=== PATIENT | female | born 1935 | race Caucasian/White ===

== ENCOUNTER 2018-05-15 09:04 | Emergency (ER) | payer BC, OTHER ==
--- OUTSIDE RECORDS SUMMARY | 2018-05-15 09:08 | XMS REPORT | Continuity of Care Document ---
:1935 Author Organization Interface Problems Problem Status Onset Date Classification Date Comments Source Reported Medications Medication Details Route Status Patient Ordering Order Source Instructions Provider Date Allergies, Adverse Reactions, Alerts Substance Category Reaction Severity Reaction Status Date Comments Source type Reported Immunizations Immunization Date Given Site Status Last Updated Comments Source Results Order Results Value Reference Date Interpretation Comments Source Name Range Vital Signs Vital Sign Value Date Comments Source Encounters Location Location Encounter Encounter Reason Attending ADM DC Status Source Details Type Number For Provider Date Date Visit Outpatient [id number] [place] 08/[address] [facility] [place] Outpatient [id number] [place] 10/[address] [facility] [place] Procedures Procedure Code Date Perfomer Comments Source
--- OUTSIDE RECORDS SUMMARY | 2018-05-15 09:08 | XMS REPORT | Clinical Summary ---
:1935 Author Organization [facility] Address [address] [place] [id number] Care Team Providers Name Role Phone Dion Plummer MD Primary Care Provider Allergies Active Allergy Reactions Severity Noted Date Comments Calcitonin 09/04/2015 Cephalexin 09/04/2015 Logan And Derivatives 04/08/2016 "citrus fruits" Diphenhydramine 09/04/2015 Methylprednisolone 09/04/2015 "shaking" Nifedipine 09/04/2015 Other 04/08/2016 "bee stings" "xanodyne" Raloxifene 09/04/2015 Ranitidine 09/04/2015 Medications Medication Sig Dispensed Refills Start End Date Status Date hydroxychloroquine Take 1 1 Active (PLAQUENIL) 200 mg tablet by 6 tablet mouth 2 (two) times a day. NEUPRO 2 mg/24 hour APPLY 1 5 Active PATCH TO 6 SKIN Q 24 H coenzyme Q10 100 mg Take 100 mg 0 Active capsule by mouth daily. leflunomide (ARAVA) 10 Take 10 mg 0 Active MG tablet by mouth daily. ergocalciferol Take 50,000 0 Active (ERGOCALCIFEROL) 50,000 Units by unit capsule mouth every 30 (thirty) days. aspirin (ECOTRIN) 81 MG Take 81 mg 0 Active enteric coated tablet by mouth daily. ramipril (ALTACE) 10 MG TAKE 1 90 capsule 3 Active capsuleIndications: CAPSULE 8 Prescription refill DAILY IF SYSTOLIC BLOOD PRESSURE IS GREATER THAN 110 atorvastatin (LIPITOR) TAKE 1 90 tablet 3 Active 40 MG tablet TABLET DAILY 8 MYRBETRIQ 50 mg tablet TAKE 1 90 tablet 2 Active extended release 24 hr TABLET DAILY 8 furosemide (LASIX) 20 mg TAKE 1 30 tablet 0 Active tabletIndications: TABLET(20 8 Edema, unspecified type MG) BY MOUTH TWICE DAILY FOR 15 DAYS gabapentin (NEURONTIN) TAKE 1 30 capsule 0 Active 400 mg capsule CAPSULE BY 8 MOUTH EVERY NIGHT AT BEDTIME citalopram (CeleXA) 20 Take 1 30 tablet 11 11/03/19 Active MG tablet tablet (20 8 19 mg total) by mouth daily. cevimeline (EVOXAC) 30 Take 30 mg 0 Active mg capsule by mouth 3 (three) times a day. hydroCHLOROthiazide Take 1 90 tablet 3 Active (HYDRODIURIL) 25 MG tablet (25 8 tabletIndications: mg total) by Prescription refill mouth daily. carvedilol (COREG) 3.125 TAKE 1 180 tablet 3 Active MG tabletIndications: TABLET TWICE 8 Prescription refill A DAY levothyroxine TAKE 1 90 tablet 2 Active (SYNTHROID, LEVOXYL) 100 TABLET DAILY 8 mcg tablet pramipexole (MIRAPEX) TAKE 1 90 tablet 3 Active 0.25 MG TABLET DAILY 8 tabletIndications: Prescription refill traZODone (DESYREL) 100 TAKE 1 90 tablet 3 Active MG tabletIndications: TABLET 8 Prescription refill NIGHTLY NEEDED FOR SLEEP galantamine ER (RAZADYNE TAKE 1 90 capsule 2 Active ER) 24 MG 24 hr capsule CAPSULE 8 DAILY memantine (NAMENDA) 10 TAKE 1 180 tablet 1 Active MG tablet TABLET TWICE 8 A DAY clonAZEPAM (KlonoPIN) 1 TAKE 1 180 tablet 0 07/16/19 Active MG tabletIndications: TABLET BY 8 19 Prescription refill MOUTH TWICE DAILY NEEDED FOR ANXIETY amLODIPine (NORVASC) 10 TAKE 1 90 tablet 2 Active mg tablet TABLET DAILY 8 spironolactone Take 1 30 tablet 11 05/07/20 Active (ALDACTONE) 25 MG tablet tablet (25 8 19 mg total) by mouth daily. FOLIC TK 1 T PO QD 0 11/03/19 Discontinued ACID/MULTIVIT-MIN/LUTEIN 18 (CENTRUM SILVER ORAL) ascorbic acid (ascorbic Take 1,000 0 11/03/19 Discontinued acid with jaclyn hips) mg by mouth 18 1000 MG tablet daily. atorvastatin (LIPITOR) TAKE 1 90 tablet 3 06/04/19 Discontinued 40 MG tablet TABLET DAILY 7 18 citalopram (CeleXA) 10 Take 1 90 tablet 3 11/03/19 Discontinued MG tabletIndications: tablet (10 7 18 Prescription refill mg total) by mouth once daily. ramipril (ALTACE) 10 MG Take 1 90 capsule 3 05/30/19 Discontinued capsuleIndications: capsule (10 7 18 Prescription refill mg total) by mouth daily. TK 1 C PO IF SBP IS > 110 galantamine ER (RAZADYNE TAKE 1 90 capsule 2 06/22/19 Discontinued ER) 24 MG 24 hr capsule CAPSULE 7 18 DAILY amLODIPine (NORVASC) 10 TAKE 1 90 tablet 2 07/28/19 Discontinued mg tablet TABLET DAILY 7 18 MYRBETRIQ 50 mg tablet TAKE 1 90 tablet 2 07/17/19 Discontinued extended release 24 hr TABLET DAILY 7 18 pramipexole (MIRAPEX) Take 1 90 tablet 3 02/05/20 Discontinued 0.25 MG tablet (0.25 7 18 tabletIndications: mg total) by Prescription refill mouth daily. traZODone (DESYREL) 100 Take 1 90 tablet 3 03/04/20 Discontinued MG tabletIndications: tablet (100 7 18 Prescription refill mg total) by mouth nightly as needed for sleep. clonAZEPAM (KlonoPIN) 1 Take 1 180 tablet 3 08/25/19 Discontinued MG tabletIndications: tablet (1 mg 7 18 Prescription refill total) by mouth 2 (two) times a day as needed for anxiety for up to 360 days. hydroCHLOROthiazide Take 1 90 tablet 3 01/08/20 Discontinued (HYDRODIURIL) 25 MG tablet (25 7 18 tabletIndications: mg total) by Prescription refill mouth once daily. carvedilol (COREG) 3.125 Take 1 180 tablet 3 01/31/20 Discontinued MG tabletIndications: tablet 7 18 Prescription refill (3.125 mg total) by mouth 2 (two) times a day. furosemide (LASIX) 20 mg Take 1 30 tablet 0 08/10/19 Discontinued tabletIndications: tablet (20 7 18 Edema, unspecified type mg total) by mouth 2 (two) times a day for 15 days. memantine (NAMENDA) 10 TAKE 1 180 tablet 1 10/09/19 Discontinued MG tablet TABLET TWICE 7 18 A DAY levothyroxine TAKE 1 90 tablet 2 02/05/20 Discontinued (SYNTHROID, LEVOXYL) 100 TABLET DAILY 7 18 mcg tablet gabapentin (NEURONTIN) TAKE 1 30 capsule 0 06/13/19 Discontinued 400 mg capsule CAPSULE BY 7 18 MOUTH EVERY NIGHT AT BEDTIME fosfomycin (MONUROL) 3 Take 3 g by 3 g 0 06/04/19 gram packet mouth once 8 18 for 1 dose. gabapentin (NEURONTIN) TAKE 1 30 capsule 0 08/11/19 Discontinued 400 mg capsule CAPSULE BY 8 18 MOUTH EVERY NIGHT AT BEDTIME galantamine ER (RAZADYNE TAKE 1 90 capsule 2 03/27/20 Discontinued ER) 24 MG 24 hr capsule CAPSULE 8 18 DAILY amLODIPine (NORVASC) 10 TAKE 1 90 tablet 2 04/24/20 Discontinued mg tablet TABLET DAILY 8 18 clopidogrel (PLAVIX) 75 TAKE 1 90 tablet 2 11/03/19 Discontinued mg tablet TABLET DAILY 8 18 clonAZEPAM (KlonoPIN) 1 Take 1 180 tablet 1 04/17/20 Discontinued MG tabletIndications: tablet (1 mg 8 18 Prescription refill total) by mouth 2 (two) times a day as needed for anxiety for up to 360 days. memantine (NAMENDA) 10 TAKE 1 180 tablet 1 04/08/20 Discontinued MG tablet TABLET TWICE 8 18 A DAY hydroCHLOROthiazide TAKE 1 90 tablet 3 01/24/20 Discontinued (HYDRODIURIL) 25 MG TABLET DAILY 8 18 tabletIndications: Prescription refill furosemide (LASIX) 20 mg TAKE 1 30 tablet 0 02/22/20 Discontinued tabletIndications: TABLET(20 8 18 Edema, unspecified type MG) BY MOUTH TWICE DAILY FOR 15 DAYS.. 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 TIA (transient ischemic attack) 04/08/2016 Transient cerebral ischemia 04/08/2016 Dementia 04/08/2016 Aphasia 04/08/2016 Bilateral Breast lump 09/04/2015 Spasm 09/04/2015 Acute bronchitis 09/04/2015 Hypothyroidism 09/04/2015 Hyperlipidemia 09/04/2015 Hypokalemia 09/04/2015 Insomnia 09/04/2015 Restless legs 09/04/2015 Discharge of eye 09/04/2015 Essential hypertension 09/04/2015 Dizziness 09/04/2015 Fatigue 09/04/2015 Vomiting 09/04/2015 Inguinal pain 09/04/2015 Abnormal urine odor 09/04/2015 Abnormal mammography 09/04/2015 Encounters Date Type Specialty Care Team Description 05/08/2018 Patient Outreach Quality Lesli Rothman 05/08/2018 Patient Outreach Quality Aimee Chen 05/07/2018 Office Visit Neurology Pablo Frias MD TIA (transient ischemic attack) (Primary Dx) 05/07/2018 Office Visit Internal Medicine Dion Plummer, Dementia without MD behavioral disturbance, unspecified dementia type (Primary Dx) 04/29/2018 Refill Internal Medicine Dion Plummer MD 04/24/2018 Refill Internal Medicine Dion Plummer MD 04/17/2018 Refill Internal Medicine Dion Plummer, Prescription refill 04/08/2018 Refill Internal Medicine Dion Plummer MD 04/02/2018 Hospital Encounter Procedural Parth Roca, Sick sinus syndrome (HCC); Cardiology Arsh-tachy syndrome (HCC) 03/27/2018 Refill Internal Medicine Dion Plummer MD 03/20/2018 Telephone Neurology Linh Rangel 03/14/2018 Office Visit Internal Medicine Dion Plummer, Dementia without behavioral disturbance, unspecified dementia type (Primary Dx); Dysuria 03/12/2018 Telephone Neurology Linh Rangel 03/04/2018 Refill Internal Medicine Dion Plummer, Prescription refill MD 02/21/2018 Refill Internal Medicine Dion Plummer, Edema, unspecified MD type 02/21/2018 Refill Internal Medicine Dion Plummer, Edema, unspecified MD type 02/04/2018 Refill Internal Medicine Dion Plummer, Prescription refill MD 01/30/2018 Refill Internal Medicine Dion Plummer, Prescription refill 01/23/2018 Office Visit Internal Medicine Dion Plummer, Dementia without behavioral disturbance, unspecified dementia type (Primary Dx); MD Need for vaccination; Prescription refill; Screening for tuberculosis 01/07/2018 Refill Internal Medicine Dion Plummer, Prescription refill 01/02/2018 Emergency Emergency Medicine González Craft MD (Primary Dx) 11/29/2017 Hospital Encounter Procedural Parth Roca, Sick sinus syndrome; Cardiology Arsh-tachy syndrome 11/22/2017 Emergency Emergency Medicine Rick Ricks, Closed head injury , initial encounter (Primary Dx); DO Lambert, initial encounter 11/02/2017 Lab Lab Pablo Frias MD Intermittent cerebral ischemia (Primary Dx) 11/02/2017 Office Visit Neurology Pablo Frias MD Transient cerebral ischemia, unspecified type (Primary Dx) 10/16/2017 Telephone Internal Medicine Dion Plummer MD 10/08/2017 Refill Internal Medicine Dion Plummer MD 08/25/2017 Hospital Encounter Procedural Parth Roca, Sick sinus syndrome; Cardiology Arsh-tachy syndrome 08/24/2017 Orders Only Internal Medicine Roma Mena MA Prescription refill 08/11/2017 Patient Outreach Quality Adina Rosado, ANGELICA 08/10/2017 Orders Only Internal Medicine Dion Plummer Fall, sequela MD (Primary Dx) 08/10/2017 Telephone Internal Medicine Roma Mena MA 08/10/2017 Refill Internal Medicine Dion Plummer MD 08/09/2017 Refill Internal Medicine Dion Plummer, Edema, unspecified MD type 08/02/2017 Refill Internal Medicine Dion Plummer MD 07/27/2017 Refill Internal Medicine Dion Plummer MD 07/17/2017 Refill Internal Medicine Dion Plummer MD 07/11/2017 Hospital Encounter Radiology Dion Plummer, Fall, sequela; Left knee pain, unspecified chronicity 07/11/2017 Hospital Encounter Radiology Dion Plummer, Fall, sequela; Pain of left hip joint 07/11/2017 Office Visit Internal Medicine Dion Plummer, Fausto, sequela ( Primary Dx); Pain of left hip joint; Left knee pain, unspecified chronicity; Hypothyroidism, unspecified type 06/22/2017 Refill Internal Medicine Dion Plummer MD 06/20/2017 Patient Outreach Quality Lizette Hernandes RN 06/13/2017 Refill Internal Medicine Dion Plummer MD 06/04/2017 Emergency Emergency Medicine Osmar Palafox Ambulatory dysfunction (Primary Dx); MD Adan Imbalance; Acute cystitis without hematuria 06/04/2017 Refill Neurology Pablo Frias MD 05/30/2017 Refill Internal Medicine Dion Plummer, Prescription refill MD after 05/14/2017 Immunizations Name Dates Previously Given Next Due FLUZONE HIGH-DOSE PF 01/23/2018, 02/24/2017 Influenza, Unspecified 01/27/2015 PPD Test 01/23/2018 Tdap 02/17/2016 Zoster 12/17/2014 Family History Medical History Relation Name Comments Heart attack Brother Lymphoma Mother Heart disease Other fam hx Stroke Sister Relation Name Status Comments Brother Mother Other fam hx Sister Social History Tobacco Use Types Packs/Day Years Used Date Never Smoker Smokeless Tobacco: Never Used Tobacco Cessation: Counseling Given: Yes Alcohol Use Drinks/Week oz/Week Comments No Sex Assigned at Date Recorded Not on file Job Start Date Occupation Industry Not on file Not on file Not on file Travel History Travel Start Travel End No recent travel history available. Last Filed Vital Signs Vital Sign Reading Time Taken Blood Pressure 172/74 05/07/2018 2:28 PM FLOATMAN Pulse 62 05/07/2018 2:28 PM [facility]LO[facility] Temperature 35.6 C (96.1 F) 01/02/2018 9:02 PM CDT Respiratory Rate 16 01/02/2018 9:52 PM CDT Oxygen Saturation 96% 01/02/2018 9:52 PM CDT Inhaled Oxygen Concentration - - Weight 70.9 kg (156 lb 4.8 oz) 05/07/2018 2:28 PM [facility]MAN Height 152.4 cm (5') 05/07/2018 2:28 PM [facility]LOATMAN Body Mass Index 30.53 05/07/2018 2:28 PM FLOATMAN Plan of Treatment Date Type Specialty Care Team Description 11/05/2018 Office Visit Internal Medicine Dion Plummer MD [address] [place] [address] [phone] 11/05/2018 Office Visit Neurology Pablo Frias MD [address] [place], [place] [id number] Health Maintenance Due Date Last Done Comments PNEUMOCOCCAL POLYSACCHARIDE 08/22/1999 VACCINE AGE 65 AND OVER SHINGLES VACCINES (1 of 2) 05/28/2018 Postponed from 1984 (Insurance / Financial) PNEUMOCOCCAL-13 Completed 05/29/2015 INFLUENZA VACCINE Completed 01/23/2018, 01/23/2018, 02/24/2017, Additional history exists Procedures Procedure Name Priority Date/Time Associated Diagnosis Comments CV PACEMAKER DEFIB Routine 04/12/2018 3:36 Sick sinus syndrome REMOTE TECH SERVICE PM FLO[facility] (HCC) Arsh-tachy syndrome (HCC) URINALYSIS, COMPLETE, Routine 03/14/2018 11:02 Dysuria Results for this WITH REFLEX TO CULTURE AM CDT procedure are in the results section. URINE CULTURE Routine 03/14/2018 11:02 Results for this AM CDT procedure are in the results section. ZZESTIMATED GFR STAT 01/02/2018 6:12 Results for this PM CDT procedure are in the results section. COMPREHENSIVE STAT 01/02/2018 6:12 Results for this METABOLIC PANEL PM CDT procedure are in the results section. HC COMPLETE BLD COUNT STAT 01/02/2018 6:12 Results for this W/AUTO DIFF PM CDT procedure are in the results section. CT HEAD WO CONTRAST STAT 01/02/2018 5:49 Results for this PM CDT procedure are in the results section. URINALYSIS STAT 01/02/2018 5:40 Results for this PM CDT procedure are in the results section. ECG 12-LEAD Routine 01/02/2018 5:14 Results for this PM CDT procedure are in the results section. CV PACEMAKER DEFIB Routine 01/02/2018 1:30 Sick sinus syndrome REMOTE TECH SERVICE PM CDT (HCC) Arsh-tachy syndrome (HCC) URINALYSIS STAT 11/22/2017 6:42 Results for this PM CDT procedure are in the results section. ZZESTIMATED GFR STAT 11/22/2017 6:05 Results for this PM CDT procedure are in the results section. HC COMPLETE BLD COUNT STAT 11/22/2017 6:05 Results for this W/AUTO DIFF PM CDT procedure are in the results section. LACTIC ACID, I-STAT STAT 11/22/2017 6:05 Results for this PM CDT procedure are in the results section. COMPREHENSIVE STAT 11/22/2017 6:05 Results for this METABOLIC PANEL PM CDT procedure are in the results section. CT HEAD WO CONTRAST STAT 11/22/2017 2:10 Results for this PM CDT procedure are in the results section. ZZESTIMATED GFR Routine 11/02/2017 1:00 Results for this PM CDT procedure are in the results section. COMPREHENSIVE Routine 11/02/2017 1:00 Intermittent Results for this METABOLIC PANEL PM CDT cerebral ischemia procedure are in the results section. LIPID PANEL Routine 11/02/2017 1:00 Intermittent Results for this PM CDT cerebral ischemia procedure are in the results section. CV PACEMAKER DEFIB Routine 09/06/2017 3:55 Sick sinus syndrome REMOTE TECH SERVICE PM CDT Arsh-tachy syndrome XR KNEE 3 VW LEFT Routine 07/11/2017 3:13 Fall, sequela Results for this PM FLOATMAN Left knee pain, procedure are in unspecified the results chronicity section. XR HIP 2-3 VIEWS LEFT Routine 07/11/2017 3:11 Fall, sequela Results for this PM [facility] Pain of left hip procedure are in joint the results section. GRAM STAIN Routine 06/04/2017 1:19 Results for this PM [facility] procedure are in the results section. URINE CULTURE Routine 06/04/2017 1:19 Results for this PM [facility] procedure are in the results section. ECG ED PRELIMINARY Routine 06/04/2017 1:16 Results for this INTERPRETATION PM FLO[facility]MAN procedure are in the results section. URINALYSIS STAT 06/04/2017 12:56 Results for this PM [facility] procedure are in the results section. XR CHEST 2 VW STAT 06/04/2017 12:30 Results for this PM [facility] procedure are in the results section. CT HEAD WO CONTRAST STAT 06/04/2017 12:29 Results for this PM [facility] procedure are in the results section. ZZESTIMATED GFR STAT 06/04/2017 12:16 Results for this PM [facility] procedure are in the results section. HC COMPLETE BLD COUNT STAT 06/04/2017 12:16 Results for this W/AUTO DIFF PM [facility] procedure are in the results section. TROPONIN, I-STAT STAT 06/04/2017 12:16 Results for this PM [facility] procedure are in the results section. BASIC METABOLIC PANEL STAT 06/04/2017 12:16 Results for this PM [facility] procedure are in the results section. ECG 12-LEAD STAT 06/04/2017 11:49 Results for this AM [facility] procedure are in the results section. after 05/14/2017 Results Cv pacemaker defib or ilr interrogation (04/12/2018 3:36 PM FLOATMAN) Narrative Performed At Performing Organization Address City/State/Zipcode Phone Number [facility] [address] [place] [address] URINALYSIS, COMPLETE, WITH REFLEX TO CULTURE (03/14/2018 11:02 AM CDT) Color, UA YELLOW YELLOW [facility] [place] Appearance CLEAR CLEAR [facility] [place] Specific gravity, urine 1.025 1.001 - 1.035 [facility] [place] pH, urine 6.0 5.0 - 8.0 [facility] [place] Glucose, urine NEGATIVE NEGATIVE [facility] [place] Bilirubin, UA NEGATIVE NEGATIVE [facility] [place] Ketones, UA NEGATIVE NEGATIVE [facility] [place] Occult blood, urine NEGATIVE NEGATIVE [facility] [place] Protein, UA 1+ (A) NEGATIVE [facility] [place] Nitrite, UA NEGATIVE NEGATIVE [facility] [place] Leukocyte esterase, UA NEGATIVE NEGATIVE [facility] [place] WBC, UA 6-10 (A) < OR=5 /HPF [facility] [place] RBC, UA 0-2 < OR=2 /HPF [facility] [place] Squamous epithelial 6-10 (A) < OR=5 /HPF [facility] cells, UA [place] Bacteria, UA FEW (A) NONE SEEN /HPF [facility] [place] Hyaline casts, UA NONE SEEN NONE SEEN /LPF [facility] [place] Comment MODERATE MUCOUS [facility] [place] Reflex CULTURE INDICATED - [facility] RESULTS TO FOLLOW [place] Narrative Performed At FASTING:UNKNOWN [facility] FASTING: UNKNOWN Resulting Agency Comment Performing Organization Information: Site ID: [id number] Name: [facility] Address: [address] [place] [phone] Director: Nena Hollis Performing Organization Address [facility] Phone Number [facility] [address] [address] Urine culture (03/14/2018 11:02 AM CDT)Only the most recent of2 resultswithin the time period is included. Urine culture SEE NOTE [facility] [place] Comment: CULTURE, URINE, ROUTINE MICRO NUMBER:[id number] TEST STATUS: FINAL SPECIMEN SOURCE: URINE SPECIMEN QUALITY:ADEQUATE RESULT:Multiple organisms present, each less than 10,000 CFU/mL. These organisms, commonly found on external and internal genitalia, are considered to be colonizers. No further testing performed. Narrative Performed At FASTING:UNKNOWN [facility] FASTING: UNKNOWN Resulting Agency Comment Performing Organization Information: Site ID: [id number] Name: [facility] Address: [address] [place] [id number] Director: Nena Hollis Performing Organization Address [facility] Phone Number [facility] [employer] [address] [address] Estimated GFR (01/02/2018 6:12 PM CDT)Only the most recent of4 resultswithin the time period is included. GFR Non Af Amer 80 mL/min/1.73 m2 DEPARTMENT OF PATHOLOGY AND GENOMIC MEDICINE, [facility] [place] GFR Af Amer >90 mL/min/1.73 m2 DEPARTMENT OF PATHOLOGY Comment: AND GENOMIC MEDICINE, Chronic kidney disease: <60 mL/min/1.73m2 [facility] Kidney failure: <15 mL/min/1.73m2 CENTER The estimated GFR is calculated from the IDMS-traceable Modification of Diet in Renal Disease Equation. The accuracy of the calculation is poor when the creatinine is normal. Calculated values >90 mL/min/1.73m2 are not reported. This equation has not been validated in children (<18 years), women, the elderly (>70 years), or ethnic groups other than Caucasians and Americans. Specimen Plasma specimen Performing Organization Address City/[facility]/Zipcode Phone Number DEPARTMENT OF PATHOLOGY AND [address] [place] [address] CBC with platelet and differential (01/02/2018 6:12 PM CDT)Only the most recent of3 resultswithin the time period is included. WBC 7.19 4.50 - 11.00 k/uL [facility] [place] RBC 4.06 (L) 4.20 - 5.50 m/uL [facility] [place] HGB 11.8 (L) 12.0 - 16.0 g/dL [facility]OLOG[facility] [place] HCT 36.7 (L) 37.0 - 47.0 % [facility] [place] MCV 90.4 82.0 - 100.0 fL [facility]OLOG[facility] [place] MCH 29.1 27.0 - 34.0 pg [facility]OLOG[facility] [place] MCHC 32.2 31.0 - 37.0 g/dL [facility]OLOGY [facility] [place] RDW - SD 45.0 37.0 - 55.0 fL [facility]OLOGY [facility] [place] MPV 11.1 8.8 - 13.2 fL [facility] [place] Platelet count 165 150 - 400 k/uL [facility]OLOGY [facility] [place] Neutrophils 59.8 39.0 - 69.0 % [facility]OLOG[facility] [place] Lymphocytes 16.8 (L) 25.0 - 45.0 % [facility] [place] Monocytes 17.0 (H) 0.0 - 10.0 % [facility] [place] Eosinophils 6.0 (H) 0.0 - 5.0 % [facility] [place] Basophils 0.4 0.0 - 1.0 % [facility]OLOG[facility] [place] Specimen Blood Performing Organization Address City/State/Zipcode Phone Number DEPARTMENT OF PATHOLOGY AND [address] [place] [address] Comprehensive metabolic panel (01/02/2018 6:12 PM CDT)Only the most recent of3 resultswithin the time period is included. Sodium 134 128 - 145 mEq/L [facility] [place] Potassium 3.9 3.6 - 5.1 mEq/L [facility] PATHOLOGY [facility] [place] CO2 28 18 - 33 mEq/L [facility] OF PATHOLOGY [facility] [place] Chloride 105 98 - 108 mEq/L [facility] [place] Glucose 89 73 - 118 mg/dL [facility] OF PATHOLOGY [facility] [place] Calcium 8.8 8.0 - 10.3 mg/dL [facility]OLOGY [facility] [place] BUN 20 7 - 22 mg/dL [facility] OF PATHOLOGY [facility] [place] Creatinine 0.7 0.6 - 1.2 mg/dL [facility] [place] Alkaline phosphatase 67 42 - 141 U/L [facility]OLOGY [facility] [place] ALT 19 10 - 47 U/L [facility] PATHOLOGY [facility] [place] AST 26 11 - 38 U/L [facility]OLOGY [facility] [place] Total bilirubin 0.9 0.2 - 1.6 mg/dL DE[facility] OF PATHOLOGY [facility]LE [facility] [place] Albumin 3.6 3.3 - 5.5 g/dL DEPARTMENT OF PATHOLOGY AND GENOMIC MEDICINELE [facility] [place] Protein 5.8 (L) 6.4 - 8.1 g/dL DEPARTMENT OF PATHOLOGY AND GENOMIC MEDICINELE [facility] [place] Anion gap 1@ANIO (L) 7 - 15 mEq/L DEPARTMENT OF PATHOLOGY AND GENOMIC MEDICINELE [facility] [place] A/G ratio 1.6 0.7 - 3.8 DEPARTMENT OF PATHOLOGY AND GENOMIC MEDICINELE [facility] [place] Specimen Plasma specimen Performing Organization Address City/State/Zipcode Phone Number DEPARTMENT OF PATHOLOGY AND [address] [place] [phone] [place] [address] CT Head Wo Contrast (01/02/2018 5:49 PM CDT)Only the most recent of3 resultswithin the time period is included. Narrative Performed At EXAMINATION: CT HEAD WO CONTRAST [facility] CLINICAL HISTORY: weakness COMPARISON:November 22, [address] brain TECHNIQUE: Noncontrast enhanced images of the brain were obtained from the skull base to the vertex. Both soft tissue and bone reconstruction algorithms were performed. CT imaging was performed with iterative reconstruction technique and/or automated exposure control to reduce radiation dose. FINDINGS: The brain parenchyma is unremarkable. The sandoval-white matter differentiation is preserved. No evidence of acute intra or extra-axial hemorrhage, mass, mass effect or acute territorial infarction. There is no acute hydrocephalus. Mild diffuse ventricular prominence secondary to cortical involutional changes stable. Basal cisterns are patent. There are atherosclerotic calcifications in the carotid siphons and vertebral arteries. Sulci and ventricles are prominent from age-related volume loss. Severe periventricular and supraventricular areas of white matter decreased attenuation. Changes most likely secondary to chronic small vessel microangiopathy. Acute small vessel changes difficult to exclude on noncontrast CT exam. MRI follow-up may be useful. Changes are similar to November 22, [address] brain No acute soft tissue hematoma or laceration. Paranasal sinuses shows no acute air-fluid levels. Mastoid air cells are clear.No skull fractures or aggressive bony lesions. Status post right lens extraction as on previous IMPRESSION: No acute intracranial abnormality identified. Severe small vessel changes in the periventricular and intraventricular regions similar in appearance to November 22, [address] brain [id number] Procedure Note Hm Interface, Radiology Results Incoming - 01/02/2018 5:57 PM CDT EXAMINATION: CT HEAD WO CONTRAST CLINICAL HISTORY: weakness COMPARISON: November 22, [address] brain TECHNIQUE: Noncontrast enhanced images of the brain were obtained from the skull base to the vertex. Both soft tissue and bone reconstruction algorithms were performed. CT imaging was performed with iterative reconstruction technique and/or automated exposure control to reduce radiation dose. FINDINGS: The brain parenchyma is unremarkable. The sandoval-white matter differentiation is preserved. No evidence of acute intra or extra-axial hemorrhage, mass, mass effect or acute territorial infarction. There is no acute hydrocephalus. Mild diffuse ventricular prominence secondary to cortical involutional changes stable. Basal cisterns are patent. There are atherosclerotic calcifications in the carotid siphons and vertebral arteries. Sulci and ventricles are prominent from age-related volume loss. Severe periventricular and supraventricular areas of white matter decreased attenuation. Changes most likely secondary to chronic small vessel microangiopathy. Acute small vessel changes difficult to exclude on noncontrast CT exam. MRI follow-up may be useful. Changes are similar to November 22, [address] brain No acute soft tissue hematoma or laceration. Paranasal sinuses shows no acute air-fluid levels. Mastoid air cells are clear. No skull fractures or aggressive bony lesions. Status post right lens extraction as on previous IMPRESSION: No acute intracranial abnormality identified. Severe small vessel changes in the periventricular and intraventricular regions similar in appearance to November 22, [address] brain [id number] Performing Organization Address City/[facility]/Zipcode Phone Number [facility] [address] [place] [address] Urinalysis (01/02/2018 5:40 PM CDT)Only the most recent of3 resultswithin the time period is included. Glucose, UA Negative Negative DEPARTMENT OF PATHOLOGY AND GENOMIC MEDICINELE [facility] [place] Bilirubin, UA Negative Negative DEPARTMENT OF PATHOLOGY AND GENOMIC MEDICINELE [facility] [place] Ketones, UA Negative Negative DEPARTMENT OF PATHOLOGY AND GENOMIC MEDICINELE [facility] [place] Specific gravity, UA 1.020 1.001 - 1.035 DEPARTMENT OF PATHOLOGY AND GENOMIC MEDICINELE [facility] [place] Blood, UA Negative Negative DEPARTMENT OF PATHOLOGY AND GENOMIC MEDICINELE [facility] [place] pH, UA 6.5 5.0 - 8.5 DEPARTMENT OF PATHOLOGY AND GENOMIC MEDICINELE [facility] [place] Protein, UA Negative Negative DEPARTMENT OF PATHOLOGY AND GENOMIC MEDICINE, [facility] [place] Urobilinogen, UA <2.0 <2.0 DEPARTMENT OF PATHOLOGY AND GENOMIC MEDICINELE [facility] [place] Nitrite, UA Negative Negative DEPARTMENT OF PATHOLOGY AND GENOMIC MEDICINE, [facility] [place] Leukocyte esterase, UA Small (A) Negative DEPARTMENT OF PATHOLOGY AND GENOMIC MEDICINE, [facility] [place] Color, UA Yellow DEPARTMENT OF PATHOLOGY AND GENOMIC MEDICINELE [facility] [place] Appearance, UA Clear DEPARTMENT OF PATHOLOGY AND GENOMIC MEDICINELE [facility] [place] Specimen Urine Performing Organization Address City/[facility]/Zipcode Phone Number DEPARTMENT OF PATHOLOGY AND [address] [place] [address] GENOMIC MEDICINELE [facility] [place] ECG 12 lead (01/02/2018 5:14 PM CDT)Only the most recent of2 resultswithin the time period is included. Ventricular rate 62 [facility] MUSE Atrial rate 62 [facility] QRSD interval 84 [facility] QT interval 440 [facility] QTC interval 446 [facility] P axis 1 69 [facility] QRS axis 1 -15 [facility] T wave axis 48 [facility] EKG impression Atrial-paced rhythm with prolonged AV conduction-Cannot rule out Anterior infarct , age undetermined-Abnormal ECG-In automated comparison with ECG of 04-JUN-2017 11:49,-No significant change was found-E [facility] lectronically Signed By Raman Fields ([id number]) on 01/03/2018 8:04:47 PM Performing Organization Address City/State/Zipcode Phone Number [facility] [address] [place] [address] Cv pacemaker defib or ilr interrogation (01/02/2018 1:30 PM CDT) Narrative Performed At Performing Organization Address City/State/Zipcode Phone Number [facility] [address] [place] [address] Lactic acid, I-Stat (11/22/2017 6:05 PM CDT) Lactic acid, I-Stat 0.7 0.5 - 2.2 mmol/L DEPARTMENT OF PATHOLOGY AND GENOMIC MEDICINELE [facility] [place] Specimen Plasma specimen Performing Organization Address City/State/Zipcode Phone Number DEPARTMENT OF PATHOLOGY AND [address] [place] [phone] GENOMIC MEDICINELE [facility] [place] Lipid panel (11/02/2017 1:00 PM CDT) Cholesterol 125 <200 mg/dL [facility] DEPARTMENT OF PATHOLOGY AND GENOMIC MEDICINE Triglycerides 79 <150 mg/dL [facility] DEPARTMENT OF PATHOLOGY AND GENOMIC MEDICINE HDL cholesterol 52 >40 mg/dL [facility] DEPARTMENT OF PATHOLOGY AND GENOMIC MEDICINE LDL cholesterol 64Comment: Result <100 mg/dL [facility] DEPARTMENT OF obtained by direct LDL PATHOLOGY AND GENOMIC measurement MEDICINE Lipid panel interpretation SeeBelow [facility] DEPARTMENT OF Comment: PATHOLOGY AND GENOMIC Total Cholesterol (mg/dL) MEDICINE <200 Desirable [id number] >=240High Triglycerides (mg/dL) <150 Normal 080-103Dwvdhcycdh-vmtw 200-499High >=500Very high HDL Cholesterol (mg/dL) <40Low (male) <40Low (female) LDL Cholesterol (mg/dL) <100 Optimal 100-129Near or above optimal [id number] 160-189High >=190Very high Risk Catergories that modify LDL goals. Risk CatergoriesLDL goal (mg/dL) CHD and CHD risk equivalent<100 (10-year risk >20%) Multiple (2+) risk factors <130 (10-year risk=<20%) 0-1 risk factors <160 (<10-year risk) Defining levels of lipids in metabolic syndrome Triglycerides>=150 mg/dL HDL Cholesterol Men<40 mg/dL Women<40 mg/dL Non-HDL cholesterol is a second target for therapy in persons with high triglycerides (>=200 mg/dL) Specimen Plasma specimen Performing Organization Address City/State/Zipcode Phone Number [facility] DEPARTMENT OF PATHOLOGY AND [address] [place] [address] [employer] Cv pacemaker defib or ilr interrogation (09/06/2017 3:55 PM CDT) Narrative Performed At Performing Organization Address City/State/Zipcode Phone Number [facility] [address] [place] [address] XR Knee 3 Vw Left (07/11/2017 3:13 PM FLOATMAN) Narrative Performed At EXAMINATION:XR KNEE 3 VW LEFT [facility] CLINICAL HISTORY:Left knee pain status-post fall COMPARISON:None available at this time. IMPRESSION: 1. No fracture, malalignment, or osseous destructive lesion of the left knee. 2. Joint spaces are maintained. Mild tricompartmental osteoarthritis. 3. No joint effusion. Soft tissues are unremarkable. [id number] Procedure Note Interface, Radiology Results Incoming - 07/11/2017 4:18 PM FLOATMAN EXAMINATION: XR KNEE 3 VW LEFT CLINICAL HISTORY: Left knee pain status-post fall COMPARISON: None available at this time. IMPRESSION: 1. No fracture, malalignment, or osseous destructive lesion of the left knee. 2. Joint spaces are maintained. Mild tricompartmental osteoarthritis. 3. No joint effusion. Soft tissues are unremarkable. [id number] Performing Organization Address City/State/Zipcode Phone Number [facility] [address] [place] [address] XR Hip 2-3 View Left (07/11/2017 3:11 PM FLOATMAN) Narrative Performed At EXAMINATION:XR HIP 2-3 VIEWS LEFT [facility] CLINICAL HISTORY:Left hip pain status-post fall. COMPARISON:None available at this time. IMPRESSION: No fracture, malalignment, or osseous destructive lesion of the left hip. Joint spaces are maintained. No significant degenerative changes. Soft tissues are unremarkable. Procedure Note Interface, Radiology Results Incoming - 07/11/2017 4:17 PM FLOATMAN EXAMINATION: XR HIP 2-3 VIEWS LEFT CLINICAL HISTORY: Left hip pain status-post fall. COMPARISON: None available at this time. IMPRESSION: No fracture, malalignment, or osseous destructive lesion of the left hip. Joint spaces are maintained. No significant degenerative changes. Soft tissues are unremarkable. Performing Organization Address [facility] Phone Number [facility] [address] [place] [address] Gram stain (06/04/2017 1:19 PM FLOATMAN) Gram stain result Occasional WBC's [facility] DEPARTMENT OF PATHOLOGY No organisms seen AND GENOMIC MEDICINE Comment: Specimen Information Specimen Source: Urine Specimen Site: Urine, clean catch Specimen Urine - Urine, clean catch Performing Organization Address [facility] Hospital[facility] Phone Number [facility] DEPARTMENT OF PATHOLOGY AND [address] [place] [address] GENOMIC MEDICINE ECG ED Preliminary Interpretation - NOT AN ORDER (06/04/2017 1:16 PM FLOATMAN) Narrative Performed At Osmar Palafox MD 06/04/20171:16 PM ECG ED Preliminary Interpretation - Not an Order Performed by: OSMAR PALAFOX Authorized by: OSMAR PALAFOX Interpretation: Interpretation: normal Rate: ECG rate:60 ECG rate assessment: normal Rhythm: Rhythm: paced Pacing: Type of pacing:Atrial Ectopy: Ectopy: none QRS: QRS axis:Normal Conduction: Conduction: abnormal Abnormal conduction: 1st degree ST segments: ST segments:Normal T waves: T waves: normal XR Chest 2 Vw (06/04/2017 12:30 PM FLOATMAN) Narrative Performed At Examination:[facility] History: fall Comparison: June 05, 2015 Technique: Frontal and lateral views of the chest Impression: Stable dual-lead pacemaker. Heart size and pulmonary vascularity within normal limits. Lungs and pleural surfaces are clear. Bones are demineralized and grossly intact. [id number] Procedure Note Interface, Radiology Results Incoming - 06/04/2017 12:34 PM FLOATMAN Examination: XR CHEST 2 VW Clinical History: fall Comparison: June 05, 2015 Technique: Frontal and lateral views of the chest Impression: Stable dual-lead pacemaker. Heart size and pulmonary vascularity within normal limits. Lungs and pleural surfaces are clear. Bones are demineralized and grossly intact. [id number] Performing Organization Address City/State/Zipcode Phone Number [facility] [address] [place] [address] Troponin, I-Stat (06/04/2017 12:16 PM FLOATMAN) Troponin, I-Stat 0.00 0.00 - 0.08 ng/mL DEPARTMENT OF Comment: PATHOLOGY AND GENOMIC 0.09 - 1.49 ng/mlMay indicate increased risk of acute [facility] coronary syndrome. [facility] >=1.5 ng/mlConsistent with acute myocardial infarction. The diagnostic value of a single normal or non-diagnostic result is questionable.Serial samples at 2-6 hour intervals are required to rule out acute myocardial injury. Specimen Plasma specimen Performing Organization Address City/State/Zipcode Phone Number DEPARTMENT OF PATHOLOGY AND [address] [place] [address] [facility] MEDICINELE [facility] [place] Basic metabolic panel (06/04/2017 12:16 PM FLOATMAN) Glucose 95 73 - 118 mg/dL DEPARTMENT OF PATHOLOGY AND GENOMIC MEDICINELE [facility] [place] BUN 27 (H) 7 - 22 mg/dL DEPARTMENT OF PATHOLOGY AND GENOMIC MEDICINELE [facility] [place] Calcium 8.9 8.0 - 10.3 mg/dL DEPARTMENT OF PATHOLOGY AND GENOMIC MEDICINE, [facility] [place] Creatinine 0.9 0.6 - 1.2 mg/dL DEPARTMENT OF PATHOLOGY AND GENOMIC MEDICINE, [facility] [place] Sodium 131 128 - 145 mEq/L DEPARTMENT OF PATHOLOGY AND GENOMIC MEDICINELE [facility] [place] Potassium 5.3 (H)Comment: Specimen 3.6 - 5.1 mEq/L DEPARTMENT OF PATHOLOGY moderately hemolyzed. AND GENOMIC MEDICINE, Interpret results accordingly. [facility] [place] Chloride 100 98 - 108 mEq/L DEPARTMENT OF PATHOLOGY AND GENOMIC MEDICINE, [facility] [place] CO2 28 18 - 33 mEq/L DEPARTMENT OF PATHOLOGY AND GENOMIC MEDICINE, [facility] [place] Anion gap 3 (L) 7 - 15 mEq/L DEPARTMENT OF PATHOLOGY Comment: AND GENOMIC MEDICINE, Starting from August , anion gap calculation [facility] no longer incorporates potassium. Please note the change. CENTER Specimen Plasma specimen Performing Organization Address City/State/Zipcode Phone Number DEPARTMENT OF PATHOLOGY AND [address] [place] [address] [facility] after 05/14/2017 Insurance Payer Benefit Plan / Group Subscriber ID Type Phone Address MEDICARE MEDICARE PART A AND B xxxxxxxxxxx Medicare [place], [place] BCBS BCBS PAR/TRAD PLAN xxxxxxxxxxxxxxx Indemnity 0 (Work) [id number] Advance Directives Patient has advance care planning documents on file. For more information, please contact:Yung Kumar[address] [place] [address]
[2018-05-15 10:18] LABS: Urine Bacteria <20 /HPF (<20); Urine Culture Reflex Order NOT NEEDED; Urine RBC <5 /HPF (NONE SEEN)
--- NOTE | 2018-05-15 10:37 | RAD REPORT ---
EXAM DESCRIPTION: CT - Head Brain Wo Cont - 05/15/2018 10:14 am CLINICAL HISTORY: Fall Fall, injury. COMPARISON: HEAD BRAIN W O CONTRAST dated 10/19/2012 TECHNIQUE: All CT scans are performed using dose optimization technique as appropriate and may inclu de automated exposure control or mA/KV adjustment according to patient size. FINDINGS: No intracranial hemorrhage, hydrocephalus or extra-axial fluid collection.Advanced general ized brain atrophy is present with advanced periventricular and deep white matter chronic microvascul ar ischemic changes.No areas of brain edema or evidence of midline shift. The paranasal sinuses and mastoids are clear. The calvarium is intact. IMPRESSION: No acute intracranial abnormality.
--- NOTE | 2018-05-15 10:42 | RAD REPORT ---
EXAM DESCRIPTION: RAD - Chest Single View - 05/15/2018 10:37 am CLINICAL HISTORY: falls Chest pain. COMPARISON: ABDOMEN ACUTE SERIES dated 03/13/2013; CHEST SINGLE VIEW dated 07/22/2011 FINDINGS: Portable technique limits examination quality. Mild interstitial pulmonary edema is present. The heart is mildly prominent size with a dual lead pac er device present. No displaced fractures. IMPRESSION: Mild CHF versus volume overload.
--- NOTE | 2018-05-15 11:06 | EKG ---
Test Date: 2018-05-15 Test Time: 09:18:39 Ethylene Plant Operator: ASHLEY MEASUREMENT RESULTS: Intervals: Rate: 66 MN: 180 QRSD: 90 QT: 436 QTc: 457 [place]: P: 54 MN: 180 QRS: 1 T: 61 INTERPRETIVE STATEMENTS: Normal sinus rhythm Normal ECG Compared to ECG 07/22/2011 02:59:41 No significant changes Electronically Signed On 05-15-18 11:05:48 NETWORK STRATEGIST by Ceferino Rothman
[2018-05-15 11:09] LABS: Absolute Lymphocytes (CBC) 0.8 K/uL (0.7-4.9); Absolute Monocytes 1.3 K/uL (0.1-1.3); Absolute Neutrophil 4.7 K/uL (1.8-8.0); Basophils % 0.7 % (0-1.3); Eosinophils % 5.8 % (0-4.4); Hematocrit 38.3 % (36.0-45.0); Lymphocytes % 11.4 % (15.3-44.8); MPV 11.1 fL (7.6-11.3); Monocytes % 17.7 % (3.3-12.3); RBC Red Blood Cell Count 4.37 M/uL (3.86-4.86)
[2018-05-15 11:32] LABS: ALT/SGPT 30 U/L (12-78); AST/SGOT 34 U/L (15-37); Albumin 3.5 g/dL (3.4-5.0); Alkaline Phosphatase 96 U/L (45-117); BUN Blood Urea Nitrogen 27 mg/dL (7-18); Bicarbonate 28 mmol/L (21-32); Bilirubin Direct 0.1 mg/dL (0-0.2); Bilirubin Total 0.6 mg/dL (0.2-1.0); Glucose Level 87 mg/dL (74-106); Magnesium 2.2 mg/dL (1.8-2.4); NT PRO-BNP 86 pg/mL (<450); Potassium 4.1 mmol/L (3.5-5.1); Protein, Total 6.2 g/dL (6.4-8.2); Sodium Level 141 mmol/L (136-145); Troponin (Emerg Dept Use Only) < 0.02 ng/mL (0.0-0.045)
[2018-05-15 13:11] LABS: Blood Morphology Comment NOTED (NOT SEEN); Platelet Estimate ADEQ; Poikilocytosis 1+; Urine White Blood Cell Casts OK
--- NOTE | 2018-05-15 13:56 | RAD REPORT ---
EXAM DESCRIPTION: RAD - Pelvis - 05/15/2018 1:22 pm CLINICAL HISTORY: Fall, pelvic pain COMPARISON: None. TECHNIQUE: AP imaging of the pelvis was obtained. FINDINGS: No fracture of the bony pelvis. No fracture, dislocation or other acute hip joint finding. No significant SI joint findings. No soft tissue abnormality. Patient has advanced degenerative change at the lumbosacral junction only partially assessed on this study. IMPRESSION: Negative pelvis for acute or significant findings. 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
--- NOTE | 2018-05-15 13:57 | RAD REPORT ---
EXAM DESCRIPTION: RAD - Hip Left 2 View - 05/15/2018 1:24 pm CLINICAL HISTORY: Fall, left hip pain COMPARISON: None. FINDINGS: AP and frogleg views of the left hip were obtained. There is no fracture or dislocation. N o AVN or focal femoral head abnormality. No significant degenerative change at the left hip joint. Mi nimal SI joint degenerative change present. No soft tissue abnormality. IMPRESSION: Negative left hip examination for acute or significant findings.
--- NOTE | 2018-05-15 14:06 | EDPHYS ---
Physician Documentation [facility] Name: Olga Arndt Age: 82 yrs Sex: Female : 1935 Arrival Date: 05/15/2018 Time: 09:08 Bed 15 Private MD: ED Physician Norberto Franks HPI: 05/15 10:30 This 82 yrs old Female presents to ER via EMS with complaints of Fall Injury. pm1 10:30 Details of fall: The patient fell from an upright position, unknown, patient either in pm1 the bed, sitting, or standing. Onset: The symptoms/episode began/occurred last night. Associated injuries: The patient sustained left buttocks. Severity of symptoms: in the emergency department the symptoms. The patient has experienced similar episodes in the past, several times. Patient presenting to the ER for evaluation of a fall. Patient presenting with bruise to left buttocks. Denies any headache, neck pain, LOC, vomiting. Patient is watched by palliative care specialist at night and is cared for by daughter in the day time. Patient with fall last night. Historical: - Allergies: 09:24 No Known Allergies; bp - Home Meds: 09:24 amlodipine oral [Active]; gabapentin oral oral [Active]; Trazodone Oral [Active]; bp aspirin 81 mg Oral chew 1 tab once daily [Active]; atorvastatin oral oral [Active]; carvedilol oral oral [Active]; Clonazepam Oral [Active]; GALAMANTINE [Active]; hydroxychloroquine oral oral [Active]; leflunomide oral oral [Active]; levothyroxine oral [Active]; memantine oral oral [Active]; Myrbetriq oral oral [Active]; PRAMPIEXOLE [Active]; Ramipril Oral [Active]; NEVPRO [Active]; ubiquinol-vitamin [id number] acid-resveratrol oral oral [Active]; - PMHx: 09:24 RESTLESS LEG SYNDROME; Dementia; Pacemaker; bp - Immunization history:: Adult Immunizations. - Social history:: Smoking status: Patient/guardian denies using tobacco. - Ebola Screening: : Patient negative for fever greater than or equal to 101.5 degrees Fahrenheit, and additional compatible Ebola Virus Disease symptoms Patient denies exposure to infectious person Patient denies travel to an Ebola-affected area in the 21 days before illness onset No symptoms or risks identified at this time. ROS: 10:30 Constitutional: Negative for fever, chills, and weight loss, Eyes: Negative for injury, pm1 pain, redness, and discharge, ENT: Negative for injury, pain, and discharge, Neck: Negative for injury, pain, and swelling, Cardiovascular: Negative for chest pain, palpitations, and edema, Respiratory: Negative for shortness of breath, cough, wheezing, and pleuritic chest pain, Abdomen/GI: Negative for abdominal pain, nausea, vomiting, diarrhea, and constipation, Back: Negative for injury and pain, : Negative for injury, bleeding, discharge, and swelling, MS/Extremity: Negative for injury and deformity. 10:30 Neuro: Negative for headache, weakness, numbness, tingling, and seizure. 10:30 Skin: Positive for ecchymosis, of the left buttocks. Exam: 10:30 Constitutional: This is a well developed, well nourished patient who is awake, alert, pm1 and in no acute distress. Head/Face: Normocephalic, atraumatic. Eyes: Pupils equal round and reactive to light, extra-ocular motions intact. Lids and lashes normal. Conjunctiva and sclera are non-icteric and not injected. Cornea within normal limits. Periorbital areas with no swelling, redness, or edema. ENT: Nares patent. No nasal discharge, no septal abnormalities noted. Tympanic membranes are normal and external auditory canals are clear. Oropharynx with no redness, swelling, or masses, exudates, or evidence of obstruction, uvula midline. Mucous membranes moist. Neck: Trachea midline, no thyromegaly or masses palpated, and no cervical lymphadenopathy. Supple, full range of motion without nuchal rigidity, or vertebral point tenderness. No Meningismus. Chest/axilla: Normal chest wall appearance and motion. Nontender with no deformity. No lesions are appreciated. Cardiovascular: Regular rate and rhythm with a normal S1 and S2. No gallops, murmurs, or rubs. Normal PMI, no JVD. No pulse deficits. Respiratory: Lungs have equal breath sounds bilaterally, clear to auscultation and percussion. No rales, rhonchi or wheezes noted. No increased work of breathing, no retractions or nasal flaring. Abdomen/GI: Soft, non-tender, with normal bowel sounds. No distension or tympany. No guarding or rebound. No evidence of tenderness throughout. Back: No spinal tenderness. No costovertebral tenderness. Full range of motion. 10:30 MS/ Extremity: Pulses equal, no cyanosis. Neurovascular intact. Full, normal range of motion. 10:30 Skin: Appearance: normal except for affected area, injury, contusion(s), that are superficial, of the left gluteus lizzeth. 10:30 Neuro: Orientation: to person, place, time, situation, Motor: moves all fours, Sensation: is normal, no obvious gross deficits. Vital Signs: 09:09 BP 154 / 75; Pulse 65; Resp 16; Temp 98; Pulse Ox 98% ; Weight 72.57 kg; Height 5 ft. bp (152.40 cm); 09:59 BP 150 / 74; Pulse 74; Resp 18; Pulse Ox 97% ; bp 10:47 BP 94 / 45; Pulse 60; Resp 14; Pulse Ox 95% ; bp 11:06 BP 103 / 51; Pulse 60; Resp 12; Pulse Ox 95% ; bp 11:41 BP 90 / 57; Pulse 60; Resp 12; Pulse Ox 96% ; bp 12:11 BP 96 / 51; Pulse 60; Resp 12; Pulse Ox 94% ; bp 13:35 BP 128 / 65; Pulse 68; Resp 16; Pulse Ox 96% ; bp 14:28 BP 125 / 69; Pulse 60; Resp 16; Pulse Ox 98% ; bp 09:09 Body Mass Index 31.25 (72.57 kg, 152.40 cm) bp MDM: 09:15 Patient medically screened. pm1 13:56 Data reviewed: vital signs. Data interpreted: Pulse oximetry: on room air is 96 %. pm1 Interpretation: normal. Counseling: I had a detailed discussion with the patient and/or guardian regarding: the historical points, exam findings, and any diagnostic results supporting the discharge/admit diagnosis, lab results, radiology results, the need for outpatient follow up, to return to the emergency department if symptoms worsen or persist or if there are any questions or concerns that arise at home. 05/15 09:33 Order name: Basic Metabolic Panel; Complete Time: 11:59 pm1 05/15 09:33 Order name: CBC with Diff; Complete Time: 13:16 pm1 05/15 09:33 Order name: LFT's; Complete Time: 11:59 pm1 05/15 09:33 Order name: Magnesium; Complete Time: 11:59 pm1 05/15 09:33 Order name: NT PRO-BNP; Complete Time: 11:59 pm1 05/15 09:33 Order name: PT-INR; Complete Time: 11:16 pm1 05/15 09:33 Order name: CT Head Brain wo Cont; Complete Time: 10:55 pm1 05/15 09:33 Order name: Troponin (emerg Dept Use Only); Complete Time: 11:59 pm1 05/15 09:33 Order name: XRAY Chest (1 view); Complete Time: 10:55 pm1 05/15 09:33 Order name: Urine Microscopic Only; Complete Time: 10:55 pm1 05/15 10:12 Order name: Urine Dipstick--Ancillary (enter results); Complete Time: 14:28 bd 05/15 12:32 Order name: Pelvis XRAY; Complete Time: 14:07 pm1 05/15 12:34 Order name: Hip Left 2 View XRAY; Complete Time: 14:07 pm1 05/15 13:11 Order name: CBC Smear Scan; Complete Time: 13:16 EDMS 05/15 09:33 Order name: EKG; Complete Time: 09:34 pm1 05/15 09:33 Order name: Cardiac monitoring; Complete Time: 10:02 pm1 05/15 09:33 Order name: EKG - Nurse/Tech; Complete Time: 10:01 pm1 05/15 09:33 Order name: Labs collected and sent; Complete Time: 10:33 pm1 05/15 09:33 Order name: O2 Per Protocol; Complete Time: 10:02 pm1 05/15 09:33 Order name: O2 Sat Monitoring; Complete Time: 10:02 pm1 05/15 09:33 Order name: Urine Dipstick-Ancillary (obtain specimen); Complete Time: 09:54 pm1 Administered Medications: No medications were administered Disposition: 05/15/18 14:06 Discharged to Home. Impression: Contusion of lower back and pelvis, Other slipping, tripping and stumbling and falls. - Condition is Stable. - Discharge Instructions: Contusion, Fall Prevention in the Home. - Medication Reconciliation Form, Thank You Letter form. - Follow up: Emergency Department; When: As needed; Reason: Recheck today's complaints, Continuance of care, Re-evaluation by your physician. Follow up: Private Physician; When: 2 - 3 days; Reason: Recheck today's complaints, Continuance of care, Re-evaluation by your physician. - Problem is new. - Symptoms have improved. Addendum: 05/31/2018 15:29 Co-signature as Attending Physician, Norberto Franks MD I agree with the assessment and w a plan of care. Signatures: Dispatcher [employer] EDMS Ed Michel, CPC CODER CPC CODER pm1 Norberto Franks MD MD wa Peltier, Brian, RN RN bp Corrections: (The following items were deleted from the chart) 05/15 10:33 09:33 IV Saline Lock ordered. pm1 bp 14:30 14:06 05/15/2018 14:06 Discharged to Home. Impression: Contusion of lower back and bp pelvis; Other slipping, tripping and stumbling and falls. Condition is Stable. Forms are Medication Reconciliation Form, Thank You Letter, Antibiotic Education, Prescription Opioid Use. Follow up: Emergency Department; When: As needed; Reason: Recheck today's complaints, Continuance of care, Re-evaluation by your physician. Follow up: Private Physician; When: 2 - 3 days; Reason: Recheck today's complaints, Continuance of care, Re-evaluation by your physician. Problem is new. Symptoms have improved. pm1
--- NOTE | 2018-05-15 14:06 | ER ---
Nurse's Notes [facility] Name: Olga Arndt Age: 82 yrs Sex: Female : 1935 Arrival Date: 05/15/2018 Time: 09:08 Bed 15 Private MD: Diagnosis: Contusion of lower back and pelvis;Other slipping, tripping and stumbling and falls Presentation: 05/15 09:10 Presenting complaint: EMS states: MECHANICAL FALL FROM STANDING, DOWN FOR 3 HOURS. bp Transition of care: patient was not received from another setting of care. Onset of symptoms is unknown. Risk Assessment: Do you want to hurt yourself or someone else? Patient reports no desire to harm self or others. Initial Sepsis Screen: Does the patient meet any 2 criteria? No. Patient's initial sepsis screen is negative. Does the patient have a suspected source of infection? No. Patient's initial sepsis screen is negative. Care prior to arrival: Glucose check: 181. 09:10 Method Of Arrival: EMS: [facility] bp 09:10 Acuity: JOSELITO 4 bp Triage Assessment: 09:25 General: Appears in no apparent distress. comfortable, Behavior is cooperative, bp appropriate for age, anxious, restless. Pain: Complains of pain in buttocks. EENT: No deficits noted. Neuro: Level of Consciousness is awake, alert, obeys commands, Oriented to person, place, time, situation, Appropriate for age. Cardiovascular: No deficits noted. Respiratory: Airway is patent Respiratory effort is even, unlabored, Respiratory pattern is regular, symmetrical. GI: No signs and/or symptoms were reported involving the gastrointestinal system. : No signs and/or symptoms were reported regarding the genitourinary system. Derm: No deficits noted. Musculoskeletal: Circulation, motion, and sensation intact. Range of motion: intact in all extremities. Injury Description: Bruise sustained to buttocks. Historical: - Allergies: 09:24 No Known Allergies; bp - Home Meds: 09:24 amlodipine oral [Active]; gabapentin oral oral [Active]; Trazodone Oral [Active]; bp aspirin 81 mg Oral chew 1 tab once daily [Active]; atorvastatin oral oral [Active]; carvedilol oral oral [Active]; Clonazepam Oral [Active]; GALAMANTINE [Active]; hydroxychloroquine oral oral [Active]; leflunomide oral oral [Active]; levothyroxine oral [Active]; memantine oral oral [Active]; Myrbetriq oral oral [Active]; PRAMPIEXOLE [Active]; Ramipril Oral [Active]; NEVPRO [Active]; ubiquinol-vitamin [id number] acid-resveratrol oral oral [Active]; - PMHx: 09:24 RESTLESS LEG SYNDROME; Dementia; Pacemaker; bp - Immunization history:: Adult Immunizations. - Social history:: Smoking status: Patient/guardian denies using tobacco. - Ebola Screening: : Patient negative for fever greater than or equal to 101.5 degrees Fahrenheit, and additional compatible Ebola Virus Disease symptoms Patient denies exposure to infectious person Patient denies travel to an Ebola-affected area in the 21 days before illness onset No symptoms or risks identified at this time. Screenin:28 Abuse screen: Denies threats or abuse. Denies injuries from another. Nutritional bp screening: No deficits noted. Tuberculosis screening: No symptoms or risk factors identified. Fall Risk Fall in past 12 months (25 points). No IV (0 pts). Ambulatory Aid- Crutches/Cane/Walker (15 pts). Gait- Weak (10 pts.). Mental Status- Oriented to own ability (0 pts). Total [place]ano Fall Scale indicates. Assessment: 09:28 General: SEE TRIAGE NOTE. bp 10:00 Reassessment: PT UNCOOPERATIVE WITH PIV PLACEMENT, PIV DEFERRED FOR LAB DRAW. bp PHLEBOTOMY CONTACTED. 10:48 Reassessment: PHLEBOTOMY SUCCESSFUL. LAB RESULTS PENDING FOR DISPO. bp 11:42 Reassessment: ALL CURRENT ORDERS COMPLETED, DISPO PENDING. bp 13:35 Reassessment: PT RETURNED FROM XRAY. ALL CURRENT ORDERS COMPLETED, DISPO PENDING. bp 14:27 Reassessment: PT D/C HOME VIA W/C WITH FAMILY, DX WITH CONTUSIONS. bp Vital Signs: 09:09 BP 154 / 75; Pulse 65; Resp 16; Temp 98; Pulse Ox 98% ; Weight 72.57 kg; Height 5 ft. bp (152.40 cm); 09:59 BP 150 / 74; Pulse 74; Resp 18; Pulse Ox 97% ; bp 10:47 BP 94 / 45; Pulse 60; Resp 14; Pulse Ox 95% ; bp 11:06 BP 103 / 51; Pulse 60; Resp 12; Pulse Ox 95% ; bp 11:41 BP 90 / 57; Pulse 60; Resp 12; Pulse Ox 96% ; bp 12:11 BP 96 / 51; Pulse 60; Resp 12; Pulse Ox 94% ; bp 13:35 BP 128 / 65; Pulse 68; Resp 16; Pulse Ox 96% ; bp 14:28 BP 125 / 69; Pulse 60; Resp 16; Pulse Ox 98% ; bp 09:09 Body Mass Index 31.25 (72.57 kg, 152.40 cm) bp ED Course: 09:08 Patient arrived in ED. bp 09:11 Triage completed. bp 09:15 Ed Michel NP is PHCP. pm1 09:15 Norberto Franks MD is Attending Physician. pm1 09:18 EKG done, by radioactivity technician. reviewed by Ed Michel NP. at1 09:25 Arm band placed on. bp 09:28 Patient has correct armband on for positive identification. Placed in gown. Bed in low bp position. Call light in reach. Side rails up X2. Adult w/ patient. 09:35 Julio Levi, RN is Primary Nurse. bp 09:53 Straight cath inserted, using sterile technique, 16 Fr. Specimen obtained. mh5 09:54 Urine collected: straight cath specimen, clear. mh5 09:54 Urine Microscopic Only Sent. mh5 10:15 CT Head Brain wo Cont In Process Unspecified. EDMS 10:37 XRAY Chest (1 view) In Process Unspecified. EDMS 13:23 Pelvis XRAY In Process Unspecified. EDMS 13:25 Hip Left 2 View XRAY In Process Unspecified. EDMS 14:28 No provider procedures requiring assistance completed. Patient did not have IV access bp during this emergency room visit. Administered Medications: No medications were administered Outcome: 14:06 Discharge ordered by MD. pm1 14:29 Discharged to home via wheelchair, with family. bp 14:29 Condition: stable 14:29 Discharge instructions given to patient, family, Instructed on discharge instructions, follow up and referral plans. Demonstrated understanding of instructions, follow-up care. 14:30 Patient left the ED. bp Signatures: Dispatcher [employer] EDMS Lulu Villanueva, cereal popper EKG Tat1 Ed Michel NP VIDEO GAME DESIGNER pm1 Christel Shelton [facility] Julio Levi, RN RN bp Corrections: (The following items were deleted from the chart) 10:01 09:59 Pulse 74bpm; Resp 18bpm; Pulse Ox 97%; bp bp
[2018-05-15 14:23] LABS: Urine Blood TRACE (NEG); Urine Glucose NEGATIVE (NEG); Urine Protein NEGATIVE (NEG)
[2018-05-15 15:04] VITALS: BP 125/69; O2SAT 98
== END 2018-05-15 14:30 | disposition home or self-care (01) ==
LOC: ER 09:04
DX: S30.0XXA Contusion of lower back and pelvis, initial encounter (principal); W01.0XXA Fall on same level from slipping, tripping and stumbling without subsequent striking against object, initial encounter; Y93.9 Activity, unspecified; Y92.9 Unspecified place or not applicable; F03.90 Unspecified dementia, unspecified severity, without behavioral disturbance, psychotic disturbance, mood disturbance, and anxiety; Z79.82 Long term (current) use of aspirin; Z95.0 Presence of cardiac pacemaker
CPT/HCPCS: 36415; 51702; 70450; 71045; 72170; 80048; 80076; 81003; 81015; 83735; 83880; 84484; 85025; 85610; 93005; 99284

== ENCOUNTER 2018-08-06 13:50 | Inpatient (IN) | payer BC, OTHER ==
--- OUTSIDE RECORDS SUMMARY | 2018-08-06 13:56 | XMS REPORT | Clinical Summary ---
:1935 Author Organization [employer] Address [address] [place] [address] Care Team Providers Name Role Phone Dion Plummer MD Primary Care Provider Allergies Active Allergy Reactions Severity Noted Date Comments Calcitonin 09/04/2015 Cephalexin 09/04/2015 [place] And Derivatives 04/08/2016 "citrus fruits" Diphenhydramine 09/04/2015 Methylprednisolone 09/04/2015 "shaking" Nifedipine 09/04/2015 Other 04/08/2016 "bee stings" "xanodyne" Raloxifene 09/04/2015 Ranitidine 09/04/2015 Medications Medication Sig Dispensed Refills Start End Status Date Date hydroxychloroquine Take 1 tablet 1 10/02/19 Active (PLAQUENIL) 200 mg by mouth 2 16 tablet (two) times a day. NEUPRO 2 mg/24 hour APPLY 1 PATCH 5 10/19/19 Active TO SKIN Q 24 H 16 coenzyme Q10 100 mg Take 100 mg by 0 Active capsule mouth daily. leflunomide (ARAVA) 10 Take 10 mg by 0 Active MG tablet mouth daily. ergocalciferol Take 50,000 0 Active (ERGOCALCIFEROL) 50,000 Units by mouth unit capsule every 30 (thirty) days. aspirin (ECOTRIN) 81 MG Take 81 mg by 0 Active enteric coated tablet mouth daily. MYRBETRIQ 50 mg tablet TAKE 1 TABLET 90 tablet 2 07/18/19 Active extended release 24 hr DAILY 18 furosemide (LASIX) 20 TAKE 1 30 tablet 0 08/11/19 Active mg tabletIndications: TABLET(20 MG) 18 Edema, unspecified type BY MOUTH TWICE DAILY FOR 15 DAYS citalopram (CeleXA) 20 Take 1 tablet 30 tablet 11 11/03/19 Active MG tablet (20 mg total) 18 019 by mouth daily. cevimeline (EVOXAC) 30 Take 30 mg by 0 Active mg capsule mouth 3 (three) times a day. hydroCHLOROthiazide Take 1 tablet 90 tablet 3 01/24/20 Active (HYDRODIURIL) 25 MG (25 mg total) 18 tabletIndications: by mouth daily. Prescription refill carvedilol (COREG) TAKE 1 TABLET 180 tablet 3 01/31/20 Active 3.125 MG TWICE A DAY 18 tabletIndications: Prescription refill levothyroxine TAKE 1 TABLET 90 tablet 2 02/06/20 Active (SYNTHROID, LEVOXYL) DAILY 18 100 mcg tablet pramipexole (MIRAPEX) TAKE 1 TABLET 90 tablet 3 02/06/20 Active 0.25 MG DAILY 18 tabletIndications: Prescription refill traZODone (DESYREL) 100 TAKE 1 TABLET 90 tablet 3 03/05/20 Active MG tabletIndications: NIGHTLY 18 Prescription refill NEEDED FOR SLEEP galantamine ER TAKE 1 CAPSULE 90 capsule 2 03/27/20 Active (RAZADYNE ER) 24 MG 24 DAILY 18 hr capsule memantine (NAMENDA) 10 TAKE 1 TABLET 180 tablet 1 04/09/20 Active MG tablet TWICE A DAY 18 amLODIPine (NORVASC) 10 TAKE 1 TABLET 90 tablet 2 04/24/20 Active mg tablet DAILY 18 spironolactone Take 1 tablet 30 tablet 11 05/07/20 Active (ALDACTONE) 25 MG (25 mg total) 18 019 tablet by mouth daily. ramipril (ALTACE) 10 MG TAKE 1 CAPSULE 90 capsule 3 05/30/19 Active capsuleIndications: DAILY IF 19 Prescription refill SYSTOLIC BLOOD PRESSURE IS GREATER THAN 110 atorvastatin (LIPITOR) TAKE 1 TABLET 90 tablet 3 06/04/19 Active 40 MG tablet DAILY 19 gabapentin (NEURONTIN) Take 1 capsule 30 capsule 3 06/19/19 Active 400 mg capsule (400 mg total) 19 by mouth nightly. clonAZEPAM (KlonoPIN) 1 TAKE 1 TABLET 180 tablet 0 07/04/19 Active MG tabletIndications: BY MOUTH TWICE 19 019 Prescription refill DAILY NEEDED FOR ANXIETY clonAZEPAM (KlonoPIN) 1 TAKE 1 TABLET 180 tablet 0 06/29/19 Active MG tabletIndications: BY MOUTH TWICE Prescription refill DAILY NEEDED FOR ANXIETY albuterol (ACCUNEB) Take 3 mL (1.25 75 mL 12 07/17/19 Active 1.25 mg/3 mL nebulizer mg total) by solution nebulization every 6 (six) hours as needed for wheezing for up to 30 days. benzonatate (TESSALON) Take 1 capsule 21 capsule 0 07/17/19 Active 100 MG capsule (100 mg total) by mouth every 8 (eight) hours for 30 days. FOLIC TK 1 T PO QD 0 Discontinued ACID/MULTIVIT-MIN/LUTEI 018 N (CENTRUM SILVER ORAL) ascorbic acid (ascorbic Take 1,000 mg 0 Discontinued acid with jaclyn hips) by mouth daily. 018 1000 MG tablet citalopram (CeleXA) 10 Take 1 tablet 90 tablet 3 06/21/19 Discontinued MG tabletIndications: (10 mg total) Prescription refill by mouth once daily. pramipexole (MIRAPEX) Take 1 tablet 90 tablet 3 01/03/20 Discontinued 0.25 MG (0.25 mg total) tabletIndications: by mouth daily. Prescription refill traZODone (DESYREL) 100 Take 1 tablet 90 tablet 3 01/03/20 Discontinued MG tabletIndications: (100 mg total) Prescription refill by mouth nightly as needed for sleep. clonAZEPAM (KlonoPIN) 1 Take 1 tablet 180 tablet 3 01/03/20 Discontinued MG tabletIndications: (1 mg total) by Prescription refill mouth 2 (two) times a day as needed for anxiety for up to 360 days. hydroCHLOROthiazide Take 1 tablet 90 tablet 3 01/03/20 Discontinued (HYDRODIURIL) 25 MG (25 mg total) tabletIndications: by mouth once Prescription refill daily. carvedilol (COREG) Take 1 tablet 180 tablet 3 01/03/20 Discontinued 3.125 MG (3.125 mg 17 018 tabletIndications: total) by mouth Prescription refill 2 (two) times a day. furosemide (LASIX) 20 Take 1 tablet 30 tablet 0 01/03/20 Discontinued mg tabletIndications: (20 mg total) 17 018 Edema, unspecified type by mouth 2 (two) times a day for 15 days. memantine (NAMENDA) 10 TAKE 1 TABLET 180 tablet 1 04/28/20 Discontinued MG tablet TWICE A DAY 17 018 levothyroxine TAKE 1 TABLET 90 tablet 2 05/15/20 Discontinued (SYNTHROID, LEVOXYL) DAILY 17 018 100 mcg tablet ramipril (ALTACE) 10 MG TAKE 1 CAPSULE 90 capsule 3 06/01/19 Discontinued capsuleIndications: DAILY IF Prescription refill SYSTOLIC BLOOD PRESSURE IS GREATER THAN 110 atorvastatin (LIPITOR) TAKE 1 TABLET 90 tablet 3 06/05/19 Discontinued 40 MG tablet DAILY 18 gabapentin (NEURONTIN) TAKE 1 CAPSULE 30 capsule 0 06/13/19 Discontinued 400 mg capsule BY MOUTH EVERY 18 018 NIGHT AT BEDTIME galantamine ER TAKE 1 CAPSULE 90 capsule 2 06/23/19 Discontinued (RAZADYNE ER) 24 MG 24 DAILY 18 018 hr capsule amLODIPine (NORVASC) 10 TAKE 1 TABLET 90 tablet 2 07/29/19 Discontinued mg tablet DAILY 18 clopidogrel (PLAVIX) 75 TAKE 1 TABLET 90 tablet 2 08/04/19 Discontinued mg tablet DAILY 18 gabapentin (NEURONTIN) TAKE 1 CAPSULE 30 capsule 0 08/11/19 Discontinued 400 mg capsule BY MOUTH EVERY 18 019 NIGHT AT BEDTIME clonAZEPAM (KlonoPIN) 1 Take 1 tablet 180 tablet 1 08/25/19 Discontinued MG tabletIndications: (1 mg total) by 018 Prescription refill mouth 2 (two) times a day as needed for anxiety for up to 360 days. memantine (NAMENDA) 10 TAKE 1 TABLET 180 tablet 1 10/11/19 Discontinued MG tablet TWICE A DAY 18 018 hydroCHLOROthiazide TAKE 1 TABLET 90 tablet 3 01/09/20 Discontinued (HYDRODIURIL) 25 MG DAILY tabletIndications: Prescription refill furosemide (LASIX) 20 TAKE 1 30 tablet 0 02/22/20 Discontinued mg tabletIndications: TABLET(20 MG) 18 018 Edema, unspecified type BY MOUTH TWICE DAILY FOR 15 DAYS.. furosemide (LASIX) 20 TAKE 1 180 tablet 0 02/23/20 Discontinued mg tabletIndications: TABLET(20 MG) 18 018 Edema, unspecified type BY MOUTH TWICE DAILY FOR 15 DAYS clonAZEPAM (KlonoPIN) 1 TAKE 1 TABLET 180 tablet 0 04/17/20 Discontinued MG tabletIndications: BY MOUTH TWICE 18 019 Prescription refill DAILY NEEDED FOR ANXIETY clopidogrel (PLAVIX) 75 TAKE 1 TABLET 90 tablet 2 04/30/20 Discontinued mg tablet DAILY 18 018 codeine-guaifenesin Take 5 mL by 118 mL 0 07/17/19 (GUAIFENESIN AC) 10-100 mouth 3 (three) 19 019 mg/5 mL liquid times a day as needed for cough or congestion for up to 5 days. amoxicillin-pot Take 1 tablet 14 tablet 0 07/17/19 clavulanate (AUGMENTIN) by mouth 2 19 019 875-125 mg per tablet (two) times a day for 7 days. 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[facility]) 06/28/2018 Refill Internal Medicine Dion Plummer Prescription refolayinka Quinones MD 06/26/2018 Refill Internal Medicine Dion Plummer Prescription refill MD Stacie 06/19/2018 Orders Only Internal Medicine Rajesh RomaJEAN CARLOS 06/16/2018 Refill Internal Medicine Dion Plummer MD 06/03/2018 Refill Neurology Pablo Frias MD 05/25/2018 Refill Internal Medicine Dion Plummer Prescription refill MD Stacie 05/18/2018 Orders Only Quality Chelo Hernadez RN 05/08/2018 Patient Outreach Quality Lesli Rothman 05/08/2018 Patient Outreach Quality Aimee Chen 05/07/2018 Office Visit Neurology Pablo Frias MD TIA (transient ischemic attack) (Primary Dx) 05/07/2018 Office Visit Internal Medicine Dion Plummer Dementia without MD Stacie behavioral disturbance, unspecified dementia type (Primary Dx) 04/29/2018 Refill Internal Medicine Dion Plummer MD 04/24/2018 Refill Internal Medicine Dion Plummer MD 04/17/2018 Refill Internal Medicine Dion Plummer Prescription ugo Quinones MD 04/08/2018 Refill Internal Medicine Dion Plummer MD 04/02/2018 Hospital Encounter Procedural Parth Roca, Sick sinus syndrome ([facility]); Cardiology Arsh-tachy 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[facility]) 03/27/2018 Refill Internal Medicine Dion Plummer MD 03/20/2018 Telephone Neurology Linh Rangel 03/14/2018 Office Visit Internal Medicine Dion Plummer Dementia without behavioral disturbance, unspecified dementia type (Primary Dx); MD Stacie Dysuria 03/12/2018 Telephone Neurology Linh Rangel 03/04/2018 Refill Internal Medicine Jose Plummeric Prescription refill MD Stacie 02/21/2018 Refill Internal Medicine iDon Plummer Edema, unspecamy Quinones MD type 02/21/2018 Refill Internal Medicine Dion Plummer Edema, unspecified MD Stacie type 02/04/2018 Refill Internal Medicine Jose Plummeric Prescription refill MD Stacie 01/30/2018 Refill Internal Medicine Elian Dion Prescription refill MD Stacie 01/23/2018 Office Visit Internal Medicine Dion Plummer Dementia without behavioral disturbance, unspecified dementia type (Primary Dx); MD Stacie Need for vaccination; Prescription refill; Screening for tuberculosis 01/07/2018 Refill Internal Medicine Dion Plummer Prescription ugo Quinones MD 01/02/2018 Emergency Emergency Medicine González Craft MD (Primary Dx) 11/29/2017 Hospital Encounter Procedural Parth Roca, Sick sinus syndrome; Cardiology Arsh-tachy syndrome 11/22/2017 Emergency Emergency Medicine Rick Ricks, Closed head injury , initial encounter (Primary Dx); DO Fall, initial encounter 11/02/2017 Lab Lab Pablo Frias [...] MA Prescription refill 08/11/2017 Patient Outreach Quality AshleeAdina abbott, ANGELICA 08/10/2017 Orders Only Internal Medicine Dion Plummer sequela J., MD (Primary Dx) 08/10/2017 Telephone Internal Medicine Roma Mena MA 08/10/2017 Refill Internal Medicine Dion Plummer MD 08/09/2017 Refill Internal Medicine Dion Plummer unspecified J., MD type after 08/05/2017 Immunizations Name Dates Previously Given Next Due [...] Vital Sign Reading Time Taken Blood Pressure 135/63 07/17/2018 3:52 PM [employer] Pulse 61 07/17/2018 3:52 PM [employer] Temperature 36.4 C (97.6 F) 07/17/2018 3:52 PM [employer] Respiratory Rate 18 07/17/2018 3:52 PM [employer] Oxygen Saturation 98% 07/17/2018 3:52 PM [employer] Inhaled Oxygen Concentration - - Weight 74.4 kg (164 lb) 07/17/2018 2:13 PM [employer] Height 152.4 cm (5') 07/17/2018 2:13 PM [employer] Body Mass Index 32.03 07/17/2018 2:13 PM [employer] Plan of Treatment Date Type Specialty Care Team Description 11/05/2018 Office Visit Internal Medicine Dion Plummer MD [address] [place], [place] [id number] 11/05/2018 Office Visit Neurology Pablo Frias MD [address] [place], [place] [phone] Health Maintenance Due Date Last Done Comments SHINGLES VACCINES (#1) 1984 65+ PNEUMOCOCCAL VACCINE (1 of 2 - 08/22/1999 PCV13) PNEUMOCOCCAL POLYSACCHARIDE VACCINE 08/22/1999 AGE 65 AND OVER INFLUENZA VACCINE Completed 01/23/2018, 01/23/2018, 02/24/2017, Additional history exists Procedures Procedure Name Priority Date/Time Associated Diagnosis Comments XR CHEST 2 VW STAT 07/17/2018 2:57 Results for this PM [employer] procedure are in the results section. ESTIMATED GFR STAT 07/17/2018 2:50 Results for this PM [employer] procedure are in the results section. TROPONIN, I-STAT STAT 07/17/2018 2:50 Results for this PM [employer] procedure are in the results section. CREATINE KINASE, TOTAL STAT 07/17/2018 2:50 Results for this (CPK) PM [employer] procedure are in the results section. B NATRIURETIC PEP, Routine 07/17/2018 2:50 Results for this I-STAT PM [employer] procedure are in the results section. LACTIC ACID, I-STAT STAT 07/17/2018 2:50 Results for this PM [employer] procedure are in the results section. COMPREHENSIVE STAT 07/17/2018 2:50 Results for this METABOLIC PANEL PM [employer] procedure are in the results section. HC COMPLETE BLD COUNT STAT 07/17/2018 2:50 Results for this W/AUTO DIFF PM [employer] procedure are in the results section. RESPIRATORY PATHOGEN Routine 07/17/2018 2:38 Results for this PANEL PM [employer] procedure are in the results section. INFLUENZA ANTIGEN Routine 07/17/2018 2:38 Results for this TEST, REFLEX NEGATIVE PM [employer] procedure are in TO RPP the results section. 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 Left subclavian pacer device remains in place. Lungs are clear. No effusion or pneumothorax noted. There is moderate sized hiatal hernia. Bones are mildly demineralized. No interval change. [facility]-[id number] Procedure Note Interface, Radiology Results Incoming - 07/17/2018 3:01 PM [employer] EXAMINATION: XR CHEST 2 VW CLINICAL HISTORY: Cough persistent, Shortness of breath COMPARISON: 06/04/2017 IMPRESSION: Heart size and pulmonary vasculature are normal. Left subclavian pacer device remains in place. Lungs are clear. No effusion or pneumothorax noted. There is moderate sized hiatal hernia. Bones are mildly demineralized. No interval change. [facility]-[id number] Performing Organization Address City/State/Zipcode Phone Number [facility] [address] [place] [address] Estimated GFR (07/17/2018 2:50 PM [employer]) Estimated GFR 59 (A) mL/min/1.73 m2 ARGUETA UATSDIN Comment: [facility] CatergoryUnitsInterpretation CENTER G1 >=90 Normal or high G2 60-89Mildly decreased [id number] to moderately decreased [id number] to severely decreased G4 15-29Severely decreased G5 <15Kidney failure The eGFR was calculated using the Chronic Kidney Disease Epidemiology Collaboration (CKD-EPI) equation. Interpretation is based on recommendations of the National Kidney Foundation-Kidney Disease Outcomes Quality Initiative (NKF-KDOQI) published in 2014. Specimen Plasma specimen Performing Organization Address City/State/Zipcode Phone Number DEPARTMENT OF PATHOLOGY AND [address] [place] [address] Troponin, I-Stat (07/17/2018 2:50 PM [employer]) Troponin, I-Stat 0.00 0.00 - 0.08 ng/mL [facility] Comment: [facility] 0.09 - 1.49 ng/mlMay indicate increased risk of acute CENTER coronary syndrome. >=1.5 ng/mlConsistent with acute myocardial infarction. The diagnostic value of a single normal or non-diagnostic result is questionable.Serial samples at 2-6 hour intervals are required to rule out acute myocardial injury. Specimen Plasma specimen Performing Organization Address [facility] Phone Number DEPARTMENT OF PATHOLOGY AND [address] [place] [address] Lactic acid, I-Stat (07/17/2018 2:50 PM [employer])Only the most recent of2 resultswithin the time period is included. Lactic acid, I-Stat 1.6 0.5 - 2.2 mmol/L [facility] Specimen Plasma specimen Performing Organization Address City/[facility]/Zipcode Phone Number DEPARTMENT PATHOLOGY AND [address] [place] [address] EMERGENCY [facility] B natriuretic pep, I-Stat (07/17/2018 2:50 PM [employer]) BNP, I-Stat 148 (H) 0 - 100 pg/mL [facility] Specimen Blood Performing Organization Address City/State/Zipcode Phone Number DEPARTMENT OF PATHOLOGY AND [address] [place] [address] CBC with platelet and differential (07/17/2018 2:50 PM [employer])Only the most recent of3 resultswithin the time period is included. WBC 7.65 4.50 - 11.00 k/uL [facility] RBC 4.14 (L) 4.20 - 5.50 m/uL [facility] HGB 12.1 12.0 - 16.0 g/dL [facility] HCT 36.3 (L) 37.0 - 47.0 % [facility] MCV 87.7 82.0 - 100.0 fL [facility] MCH 29.2 27.0 - 34.0 pg [facility] MCHC 33.3 31.0 - 37.0 g/dL [facility] RDW - SD 45.1 37.0 - 55.0 fL [facility] MPV 11.6 8.8 - 13.2 fL [facility] Platelet count 156 150 - 400 k/uL [facility] Neutrophils 53.6 39.0 - 69.0 % [facility] Lymphocytes 20.1 (L) 25.0 - 45.0 % [facility] Monocytes 16.6 (H) 0.0 - 10.0 % [facility] Eosinophils 9.0 (H) 0.0 - 5.0 % [facility] Basophils 0.7 0.0 - 1.0 % [facility] Specimen Blood Performing Organization Address City/State/Zipcode Phone Number DEPARTMENT OF PATHOLOGY AND [address] [place] [address] Creatine kinase, total (CPK) (07/17/2018 2:50 PM [employer]) Creatine kinase 104 30 - 190 U/L [facility] Specimen Plasma specimen Performing Organization Address City/[facility] Phone Number DEPARTMENT OF PATHOLOGY AND [address] [place] [address] Comprehensive metabolic panel (07/17/2018 2:50 PM [employer])Only the most recent of4 resultswithin the time period is included. Sodium 140 128 - 145 mEq/L [facility] Potassium 3.9 3.6 - 5.1 mEq/L [facility] CO2 28 18 - 33 mEq/L [facility] Chloride 99 98 - 108 mEq/L [facility] Glucose 106 73 - 118 mg/dL [facility] Calcium 9.6 8.0 - 10.3 mg/dL [facility] BUN 17 7 - 22 mg/dL [facility] Creatinine 0.9 0.5 - 0.9 mg/dL [facility] Alkaline phosphatase 84 42 - 141 U/L [facility] ALT 23 10 - 47 U/L [facility] AST 27 11 - 38 U/L [facility] Total bilirubin 0.6 0.2 - 1.6 mg/dL [facility] Albumin 3.5 3.3 - 5.5 g/dL [facility] Protein 6.3 (L) 6.4 - 8.1 g/dL [facility] Anion gap 13@ANIO 7 - 15 mEq/L [facility] A/G ratio 1.2 0.7 - 3.8 [facility] Specimen Plasma specimen Performing Organization Address City/[facility] Phone Number DEPARTMENT OF PATHOLOGY AND [address] [place] [address] [facility] Respiratory pathogen panel (07/17/2018 2:38 PM [employer]) Respiratory pathogen Negative for all pathogens tested: [facility] Negative for Adenovirus [facility] Negative for Coronavirus HKU1 Negative for Coronavirus NL63 Negative for Coronavirus 229E Negative for Coronavirus OC43 Negative for Human Metapneumovirus Negative for Rhinovirus/Enterovirus Negative for Influenza A Negative for Influenza A/H1 Negative for Influenza A/H3 Negative for Influenza A/H1-2009 Negative for Influenza B Negative for Parainfluenza Virus 1 Negative for Parainfluenza Virus 2 Negative for Parainfluenza Virus 3 Negative for Parainfluenza Virus 4 Negative for Respiratory Syncytial Virus Negative for Bordetella pertussis Negative for Chlamydophila pneumoniae Negative for Mycoplasma pneumoniae This real-time PCR assay detects the presence of nucleic acids (RNA or DNA) for the respiratory pathogens listed. A result of "Not-detected" does not exclude the possibility of the presence of one or more pathogens at concentrations less than the detectable limits of the assay. Comment: Specimen Information Specimen Source: Nares Specimen Site: Right Specimen Nares - Right Performing Organization Address [facility] Phone Number [facility] DEPARTMENT OF PATHOLOGY AND [address] [place] [address] Influenza antigen test, reflex negative to RPP (07/17/2018 2:38 PM [employer]) Influenza antigen Negative for Influenza A/B antigen. [facility] Comment: Specimen Information Specimen Source: Nares Specimen Site: Right Specimen Nares - Right Performing Organization Address City/[facility] Phone Number [facility] DEPARTMENT OF PATHOLOGY AND [address] [place] [address] CV pacemaker defib or ilr interrogation (07/04/2018 1:42 PM [employer]) Narrative Performed At Performing Organization Address [facility] Phone Number [facility] [address] [place] [address] Cv pacemaker defib or ilr interrogation (04/12/2018 3:36 PM [employer]) Narrative Performed At Performing Organization Address City/[facility]/Zipcode Phone Number [facility] [address] [place] [address] URINALYSIS, COMPLETE, WITH REFLEX TO CULTURE (03/14/2018 11:02 AM CDT) Color, UA YELLOW YELLOW [facility] Appearance CLEAR CLEAR [facility] Specific gravity, urine 1.025 1.001 - 1.035 [facility] pH, urine 6.0 5.0 - 8.0 [facility] Glucose, urine NEGATIVE NEGATIVE [facility] Bilirubin, UA NEGATIVE NEGATIVE [facility] Ketones, UA NEGATIVE NEGATIVE [facility] Occult blood, urine NEGATIVE NEGATIVE [facility] Protein, UA 1+ (A) NEGATIVE [facility] Nitrite, UA NEGATIVE NEGATIVE [facility] Leukocyte esterase, UA NEGATIVE NEGATIVE [facility] WBC, UA 6-10 (A) < OR=5 /HPF [facility] RBC, UA 0-2 < OR=2 /HPF [facility] Squamous epithelial 6-10 (A) < OR=5 /HPF [facility] cells, UA [place] Bacteria, UA FEW (A) NONE SEEN /HPF [facility] Hyaline casts, UA NONE SEEN NONE SEEN /LPF [facility] Comment MODERATE MUCOUS [facility] [place] Reflex CULTURE INDICATED - [employer] RESULTS TO FOLLOW [place] Narrative Performed At FASTING:UNKNOWN [facility] FASTING: UNKNOWN Resulting Agency Comment Performing Organization Information: Site ID: [facility] Name[facility] Address: [address] [place] [phone] Director: Nena Hollis Performing Organization Address [facility] Phone Number [facility] [employer] [address] [address] Urine culture (03/14/2018 11:02 AM CDT) Urine culture SEE NOTE [employer] [place] Comment: CULTURE, URINE, ROUTINE MICRO NUMBER:[id number] TEST STATUS: FINAL SPECIMEN SOURCE: URINE SPECIMEN QUALITY:ADEQUATE RESULT:Multiple organisms present, each less than 10,000 CFU/mL. These organisms, commonly found on external and internal genitalia, are considered to be colonizers. No further testing performed. Narrative Performed At FASTING:UNKNOWN [facility] FASTING: UNKNOWN Resulting Agency Comment Performing Organization Information: Site ID: [facility] Name: [facility] Address: [address] [place] [phone] Director: Nena Hollis Performing Organization Address City/State/Zipcode Phone Number [employer] [place] [address] [place] [address] Estimated GFR (01/02/2018 6:12 PM CDT)Only the most recent of3 resultswithin the time period is included. GFR Non Af Amer 80 mL/min/1.73 m2 [facility] GFR Af Amer >90 mL/min/1.73 m2 DEPARTMENT OF PATHOLOGY Comment: AND [employer] MEDICINE, Chronic kidney disease: <60 mL/min/1.73m2 [facility] Kidney failure: <15 mL/min/1.73m2 CENTER The [...] Americans. Specimen Plasma specimen Performing Organization Address City/State/Zipcode Phone Number DEPARTMENT OF PATHOLOGY [id number] [place] [address] CT Head Wo Contrast (01/02/2018 5:49 PM CDT)Only the most recent of2 resultswithin the time period is included. Narrative Performed At EXAMINATION: CT HEAD WO CONTRAST RADIANT CLINICAL HISTORY: weakness COMPARISON:November 22, 2017 [...] to November 22, [address] brain [facility]-[id number] Procedure Note Hm Interface, Radiology Results Incoming [...] to November 22, [id number] Performing Organization Address City/State/Zipcode Phone Number [facility] [address] [place] [address] Urinalysis (01/02/2018 5:40 PM CDT)Only the most recent of2 resultswithin the time period is included. Glucose, UA Negative Negative [facility] Bilirubin, UA Negative Negative [facility] Ketones, UA Negative Negative [facility] Specific gravity, UA 1.020 1.001 - 1.035 [facility] Blood, UA Negative Negative [facility] pH, UA 6.5 5.0 - 8.5 [facility] Protein, UA Negative Negative DEPARTMENT OF PATHOLOGY AND GENOMIC MEDICINE, [facility] Urobilinogen, UA <2.0 <2.0 [facility] Nitrite, UA Negative Negative [facility] Leukocyte esterase, UA Small (A) Negative [facility] Color, UA Yellow [facility] Appearance, UA Clear [facility] Specimen Urine Performing Organization Address City/[facility] Phone Number DEPARTMENT OF PATHOLOGY AND [address] [place] [address] [facility] ECG 12 lead (01/02/2018 5:14 PM CDT) Ventricular rate 62 [facility] MUSE Atrial rate 62 [facility] MUSE QRSD interval 84 [facility] QT interval 440 [facility] QTC interval 446 [facility] P axis 1 69 [facility] QRS axis 1 -15 [facility] MUSE T wave axis 48 [facility] MUSE EKG impression Atrial-paced rhythm with prolonged AV conduction-Cannot rule out Anterior infarct , age undetermined-Abnormal ECG-In automated comparison with ECG of 04-JUN-2017 11:49,-No significant change was found-E [facility] MUSE lectronically Signed By Raman Fields ([id number]) on 01/03/2018 8:04:47 PM Performing Organization Address City/[facility]/Zipcode Phone Number [facility] [employer] [address] [place] [address] Cv pacemaker defib or ilr interrogation (01/02/2018 1:30 PM CDT) Narrative Performed At Performing Organization Address City/State/Zipcode Phone Number [facility] [address] [place] [address] Lipid panel (11/02/2017 1:00 PM CDT) Cholesterol 125 <200 mg/dL [facility] DEPARTMENT OF PATHOLOGY AND GENOMIC MEDICINE Triglycerides 79 <150 mg/dL [facility] DEPARTMENT OF PATHOLOGY AND GENOMIC MEDICINE HDL cholesterol 52 >40 mg/dL [facility] DEPARTMENT OF PATHOLOGY AND GENOMIC MEDICINE LDL cholesterol 64Comment: Result <100 mg/dL [facility] DEPARTMENT OF obtained by direct LDL PATHOLOGY AND GENOMIC measurement MEDICINE Lipid panel interpretation SeeBelow [facility] DEPARTMENT OF Comment: PATHOLOGY AND GENOMIC Total Cholesterol (mg/dL) MEDICINE <200 Desirable 540-742Otmlownfch-txsn >=240High Triglycerides (mg/dL) <150 Normal 003-846Pftovjjvry-ugka 200-499High >=500Very high HDL Cholesterol (mg/dL) <40Low (male) <40Low (female) LDL Cholesterol (mg/dL) <100 Optimal 100-129Near or above optimal 111-939Pwdowydqia-fvva 160-189High >=190Very high Risk Catergories that modify [...] specimen Performing Organization Address City/State/Zipcode Phone Number [facility] DEPARTMENT OF PATHOLOGY AND [address] [place] [address] [employer] MEDICINE Cv pacemaker defib or ilr interrogation (09/06/2017 3:55 PM CDT) Narrative Performed At Performing Organization Address City/State/Zipcode Phone Number [facility] [address] [place] [address] after 08/05/2017 Insurance Payer Benefit Plan / Group Subscriber ID Type Phone Address MEDICARE MEDICARE PART A AND B xxxxxxxxxxx Medicare [place], [place] BCBS BCBS PAR/TRAD PLAN xxxxxxxxxxxxxxx Indemnity [phone] [address] (Home) [phone] [place], [place] 0 (Work) [phone] Advance Directives Patient has advance care planning documents on file. For more information, please contact:Yung Kumar[address] [place] [address]
--- OUTSIDE RECORDS SUMMARY | 2018-08-06 13:56 | XMS REPORT | Continuity of Care Document ---
[...] Number For Provider Date Date Visit Outpatient [id number] [place] 08/30 [facility] [place] Outpatient [id number] [place] 10/11 [facility] [place] Procedures Procedure Code Date Perfomer Comments Source
[2018-08-06] MEDS ORDERED: NA CHLORIDE 0.9% 2,000 ML ONE (14:39)
[2018-08-06 14:45] LABS: Absolute Lymphocytes (CBC) 0.6 K/uL (0.7-4.9); Absolute Monocytes 3.1 K/uL (0.1-1.3); Absolute Neutrophil 19.2 K/uL (1.8-8.0); Basophils % 0.1 % (0-1.3); Eosinophils % 0.3 % (0-4.4); Lymphocytes % 2.6 % (15.3-44.8); MPV 10.4 fL (7.6-11.3); Monocytes % 13.4 % (3.3-12.3); RBC Red Blood Cell Count 4.22 M/uL (3.86-4.86)
[2018-08-06 15:06] LABS: Albumin 2.6 g/dL (3.4-5.0); Bilirubin Direct 0.2 mg/dL (0-0.2); Bilirubin Total 0.7 mg/dL (0.2-1.0); Potassium 4.1 mmol/L (3.5-5.1); Protein, Total 5.1 g/dL (6.4-8.2)
--- NOTE | 2018-08-06 15:15 | EKG ---
Test Date: 2018-08-06 Test Time: 14:30:10 Machine Stemmer: JULIA MEASUREMENT RESULTS: Intervals: Rate: 65 TN: 188 QRSD: 78 QT: 400 QTc: 416 [place]son: P: 57 TN: 188 QRS: -17 T: 38 INTERPRETIVE STATEMENTS: Normal sinus rhythm Cannot rule out Anterior infarct, age undetermined Abnormal ECG Compared to ECG 05/15/2018 09:18:39 Myocardial infarct finding now present Electronically Signed On 08-06-18 15:14:13 CDT by Jimi Villagomez
--- NOTE | 2018-08-06 17:07 | RAD REPORT ---
EXAM DESCRIPTION: CT - Abdomen Pelvis W Contrast - 08/06/2018 4:51 pm CLINICAL HISTORY: Abdominal pain, vomiting, diarrhea COMPARISON: February 2013 CT imaging TECHNIQUE: Biphasic, helical CT imaging of the abdomen and pelvis was performed following 100 ml non -ionic IV contrast. Oral contrast was given. All CT scans are performed using dose optimization technique as appropriate and may include automated exposure control or mA/KV adjustment according to patient size. FINDINGS: No suspicious findings in the lung bases. No pericardial thickening or effusion. Coronary artery calcifications are present. The liver, spleen, and pancreas show no suspicious findings. Gallbladder is contracted. Gallstones ca n be occult. No biliary tree dilatation. Symmetric renal function is seen with no hydronephrosis or suspicious renal mass. No pyelonephritis o r acute parenchymal process. No bladder abnormalities. No adrenal abnormalities. Uterus and ovaries s how no suspicious findings. Patient has a large hiatal hernia with 50% of the stomach intrathoracic. No acute small bowel finding . No appendicitis findings. Patient has mild to moderate circumferential wall thickening throughout t he entirety of the colon. No one focal area of mass or greater concern. Minimal amount of free fluid in the peritoneal cavity. There is a mild congested or edematous strandi ng pattern adjacent to the colon. No free air or pneumatosis. No hernia, mass or bulky lymphadenopa thy. Advanced disc and bony degenerative changes are present. IMPRESSION: Mild to moderate pancolitis pattern. No mass, free air or surgically emergent finding.
--- NOTE | 2018-08-06 17:12 | ER ---
Nurse's Notes [facility] Name: Olga Arndt Age: 82 yrs Sex: Female : 1935 Arrival Date: 08/06/2018 Time: 13:51 Bed 2 Private MD: Diagnosis: Pancolitis;Dehydration;Hypotension Presentation: 08/06 13:45 Presenting complaint: EMS states: pt has had complaints of N/D for 2-3 days now, denies sg any recent infections or use of antibiotics, denies pain fever at this time. Upon arrival pt BP noted to be 60's systolic, reports 700 mL of NS administered and pt became less drowsy and reported feeling better. Transition of care: patient was not received from another setting of care. Onset of symptoms was August 06, 2018. Risk Assessment: Do you want to hurt yourself or someone else? Patient reports no desire to harm self or others. Initial Sepsis Screen: Does the patient meet any 2 criteria? No. Patient's initial sepsis screen is negative. Does the patient have a suspected source of infection? No. Patient's initial sepsis screen is negative. 13:45 Method Of Arrival: EMS: [facility] sg 13:45 Acuity: JOSELITO 2 sg 13:45 Care prior to arrival: IV initiated. 20 GA, in the left forearm. Care prior to arrival: sg IV initiated. 20 GA, in the right forearm. Triage Assessment: 13:50 General: Appears in no apparent distress. comfortable, ill, well developed, well sg nourished, Behavior is calm, cooperative, quiet. 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 Respiratory: Airway is patent Respiratory effort is even, unlabored, Respiratory pattern is regular, symmetrical. GI: Abdomen is round non-distended, Bowel sounds present X 4 quads. hyperactive in right lower quadrant and left lower quadrant Reports diarrhea, nausea. Derm: Skin is intact, is thin, Skin is pale, Skin temperature is warm. Historical: - Allergies: 14:35 CALCITONIN; sg 14:35 Diphenhydramine; sg 14:35 Cephalexin; sg 14:35 Raloxifene; sg 14:35 Nifedipine; sg 14:35 Methylprednisolone; sg - Home Meds: 14:35 amlodipine oral [Active]; aspirin 81 mg Oral chew 1 tab once daily [Active]; sg atorvastatin Oral [Active]; carvedilol Oral [Active]; Clonazepam Oral [Active]; gabapentin Oral [Active]; GALAMANTINE [Active]; hydroxychloroquine Oral [Active]; leflunomide Oral [Active]; levothyroxine oral [Active]; memantine Oral [Active]; Myrbetriq Oral [Active]; NEVPRO [Active]; PRAMPIEXOLE [Active]; Ramipril Oral [Active]; Trazodone Oral [Active]; ubiquinol-vitamin [id number] acid-resveratrol Oral [Active]; - PMHx: 14:35 Dementia; Pacemaker; restless leg syndrome; sg - Immunization history:: Adult Immunizations up to date. - Social history:: Smoking status: Patient/guardian denies using tobacco. - Family history:: not pertinent. - Ebola Screening: : Patient negative for fever greater than or equal to 101.5 degrees Fahrenheit, and additional compatible Ebola Virus Disease symptoms Patient denies exposure to infectious person Patient denies travel to an Ebola-affected area in the 21 days before illness onset No symptoms or risks identified at this time. - Hospitalizations: : No recent hospitalization is reported. Screenin:04 Abuse screen: Denies threats or abuse. Nutritional screening: No deficits noted. tw2 Tuberculosis screening: No symptoms or risk factors identified. Fall Risk None identified. Assessment: 13:53 Reassessment: Dr. Mckeon at bedside at this time. tw2 14:00 General: Appears in no apparent distress. Behavior is calm, cooperative, appropriate tw2 for age. Pain: Denies pain. Neuro: Level of Consciousness is awake, alert, obeys commands, Oriented to person, place, time, situation. Cardiovascular: Heart tones S1 S2 Patient's skin is warm and dry. Respiratory: Airway is patent Respiratory effort is even, unlabored, Respiratory pattern is Breath sounds are clear bilaterally. GI: Abdomen is round non-distended, Bowel sounds present X 4 quads. Abd is soft X 4 quads Reports diarrhea, nausea, vomiting. : No signs and/or symptoms were reported regarding the genitourinary system. EENT: No signs and/or symptoms were reported regarding the EENT system. Derm: Skin is pale, Skin temperature is warm. Musculoskeletal: Range of motion: intact in all extremities. 15:03 Reassessment: Patient appears in no apparent distress at this time. No changes from tw2 previously documented assessment. Patient and/or family updated on plan of care and expected duration. Pain level reassessed. 16:10 Reassessment: Patient appears in no apparent distress at this time. No changes from tw2 previously documented assessment. Patient and/or family updated on plan of care and expected duration. Pain level reassessed. 17:10 Reassessment: Patient appears in no apparent distress at this time. No changes from tw2 previously documented assessment. Patient and/or family updated on plan of care and expected duration. Pain level reassessed. 18:10 Reassessment: Patient appears in no apparent distress at this time. No changes from tw2 previously documented assessment. Patient and/or family updated on plan of care and expected duration. Pain level reassessed. 19:00 Reassessment: Patient appears in no apparent distress at this time. No changes from tw2 previously documented assessment. Patient and/or family updated on plan of care and expected duration. Pain level reassessed. 19:25 Reassessment: pt cleaned and linens changed. pt had diarrhea BM. ak1 Vital Signs: 13:53 BP 73 / 47; Pulse 66; Resp 17; Pulse Ox 96% on R/A; Pain 0/10; tw2 14:38 BP 97 / 44; Pulse 66; Resp 17; Pulse Ox 97% on R/A; tw2 14:38 Temp 97.9(A); tw2 15:02 BP 91 / 47; Pulse 68; Resp 23; Pulse Ox 95% on R/A; tw2 16:10 BP 102 / 49; Pulse 72; Resp 17; Pulse Ox 96% on R/A; tw2 17:10 BP 94 / 56; Pulse 77; Resp 17; Pulse Ox 96% on R/A; tw2 18:10 BP 94 / 51; Pulse 76; Resp 17; Pulse Ox 96% on R/A; tw2 19:00 BP 103 / 73; Pulse 77; Resp 17; Pulse Ox 96% on R/A; tw2 ED Course: 13:51 Patient arrived in ED. tw2 13:52 Thdadeus Mckeon MD is Attending Physician. tw2 13:52 Nuvia Rodriguez RN is Primary Nurse. tw2 14:18 Triage completed. sg 14:18 Arm band placed on. sg 14:30 Patient has correct armband on for positive identification. Placed in gown. Bed in low sg position. Side rails up X2. 14:30 Warm blanket given. Head of bed elevated. bed placed into Trendelenburg position at sg this time. 14:53 EKG done, by injection maintenance technician. dt2 14:57 Notified ED physician of a critical lab result(s). WBC 23. sg 16:10 Assisted with bedpan. sg 16:51 CT Abd/Pelvis - W/Contrast In Process Unspecified. EDMS 17:11 Tony Winkler MD is Hospitalizing Provider. rn 18:00 Assisted with bedpan. Cleaned of incontinence. linen remains clean at this time. sg 19:00 Report given to ANGELICA Cisneros and ANGELICA Bradford. tw2 19:13 Cleaned of incontinence. mt 19:23 No provider procedures requiring assistance completed. Patient admitted, IV remains in ak1 place. Administered Medications: 14:38 Drug: NS 0.9% 1000 ml Route: IV; Rate: 1000 ml; Site: left hand; tw2 17:40 Follow up: Response: No adverse reaction; IV Status: Completed infusion; IV Intake: sg 1000ml 14:38 Drug: NS 0.9% 1000 ml Route: IV; Rate: 1000 ml; Site: left hand; tw2 17:39 Follow up: Response: No adverse reaction; IV Status: Completed infusion; IV Intake: sg 1000ml 17:30 Drug: Cipro 400 mg Volume: 200 ml; Route: IVPB; Infused Over: 60 mins; Site: right hand;sg 18:30 Follow up: Response: No adverse reaction; IV Status: Completed infusion tw2 17:30 Drug: Flagyl 500 mg Volume: 100 ml; Route: IVPB; Rate: 200 ml/hr; Infused Over: 30 sg mins; Site: right hand; 18:00 Follow up: Response: No adverse reaction; IV Status: Completed infusion tw2 Point of Care Testing: Blood Glucose: 13:55 Blood Glucose: 128 mg/dL; sg Ranges: Intake: 17:39 IV: 1000ml; Total: 1000ml. sg 17:40 IV: 1000ml; Total: 2000ml. sg Outcome: 17:11 Decision to Hospitalize by Provider. rn 19:23 Condition: stable ak1 19:23 Instructed on the need for admit. 19:37 Admitted to Med/surg accompanied by tech, via stretcher, room 423, with chart, Report ak1 called to jayro rayo for 423 20:14 Patient left the ED. ak1 Signatures: Dispatcher [employer] EDMS Zaire Navarro, RN Thaddeus Woodard MD MD rn Krenek, Amber, RN RN ak1 Nuvia Rodriguez RN RN Kellie Dobbins mt, Danielle dt2
--- NOTE | 2018-08-06 17:12 | EDPHYS ---
Physician Documentation [facility] Name: Olga Arndt Age: 82 yrs Sex: Female : 1935 Arrival Date: 08/06/2018 Time: 13:51 Bed 2 Private MD: ED Physician Thaddeus Mckeon HPI: 08/06 14:16 This 82 yrs old Female presents to ER via Unassigned with complaints of rn Hypotension, Nausea/Vomiting/Diarrhea. 14:16 The patient presents to the emergency department with nausea, vomiting, diarrhea. rn Onset: The symptoms/episode began/occurred 5 day(s) ago. Possible causes: unknown. The symptoms are aggravated by nothing. The symptoms are alleviated by nothing. Severity of symptoms: At their worst the symptoms were moderate in the emergency department the symptoms are unchanged. The patient has not experienced similar symptoms in the past. Reports nausea/vomiting/diarrhea for 5 days, was going to come in by private vehicle, too weak to ambulate, family couldn't get her in car, called 911, BP was 60 systolic, improved with IV fluids, no abd pain, no fever, no blood in emesis or stool. . Historical: - Allergies: 14:35 CALCITONIN; sg 14:35 Diphenhydramine; sg 14:35 Cephalexin; sg 14:35 Raloxifene; sg 14:35 Nifedipine; sg 14:35 Methylprednisolone; sg - Home Meds: 14:35 amlodipine oral [Active]; aspirin 81 mg Oral chew 1 tab once daily [Active]; sg atorvastatin Oral [Active]; carvedilol Oral [Active]; Clonazepam Oral [Active]; gabapentin Oral [Active]; GALAMANTINE [Active]; hydroxychloroquine Oral [Active]; leflunomide Oral [Active]; levothyroxine oral [Active]; memantine Oral [Active]; Myrbetriq Oral [Active]; NEVPRO [Active]; PRAMPIEXOLE [Active]; Ramipril Oral [Active]; Trazodone Oral [Active]; ubiquinol-vitamin X40-nobvj acid-resveratrol Oral [Active]; - PMHx: 14:35 Dementia; Pacemaker; restless leg syndrome; sg - Immunization history:: Adult Immunizations up to date. - Social history:: Smoking status: Patient/guardian denies using tobacco. - Family history:: not pertinent. - Ebola Screening: : Patient negative for fever greater than or equal to 101.5 degrees Fahrenheit, and additional compatible Ebola Virus Disease symptoms Patient denies exposure to infectious person Patient denies travel to an Ebola-affected area in the 21 days before illness onset No symptoms or risks identified at this time. - Hospitalizations: : No recent hospitalization is reported. ROS: 14:16 Constitutional: Negative for fever, chills, and weight loss, Eyes: Negative for injury, rn pain, redness, and discharge, Neck: Negative for injury, pain, and swelling, Cardiovascular: Negative for chest pain, palpitations, and edema, Respiratory: Negative for shortness of breath, cough, wheezing, and pleuritic chest pain, Abdomen/GI: Negative for abdominal pain, and constipation, MS/Extremity: Negative for injury and deformity, Skin: Negative for injury, rash, and discoloration, Neuro: Negative for headache, numbness, tingling, and seizure. Exam: 14:16 Constitutional: This is a well developed, well nourished patient who is awake, alert, rn and in no acute distress. Head/Face: Normocephalic, atraumatic. ENT: dry MM Cardiovascular: Regular rate and rhythm, No pulse deficits. Respiratory: Lungs have equal breath sounds bilaterally, clear to auscultation. No increased work of breathing, no retractions or nasal flaring. Abdomen/GI: soft, non-tender Skin: warm, dry MS/ Extremity: Pulses equal, no cyanosis. Neurovascular intact. Full, normal range of motion. Equal circumference. Neuro: Awake and alert, GCS 15, oriented to person, place, time, and situation. Cranial nerves II-XII grossly intact. Motor strength 5/5 in all extremities. Sensory grossly intact. Vital Signs: 13:53 BP 73 / 47; Pulse 66; Resp 17; Pulse Ox 96% on R/A; Pain 0/10; tw2 14:38 BP 97 / 44; Pulse 66; Resp 17; Pulse Ox 97% on R/A; tw2 14:38 Temp 97.9(A); tw2 15:02 BP 91 / 47; Pulse 68; Resp 23; Pulse Ox 95% on R/A; tw2 16:10 BP 102 / 49; Pulse 72; Resp 17; Pulse Ox 96% on R/A; tw2 17:10 BP 94 / 56; Pulse 77; Resp 17; Pulse Ox 96% on R/A; tw2 18:10 BP 94 / 51; Pulse 76; Resp 17; Pulse Ox 96% on R/A; tw2 19:00 BP 103 / 73; Pulse 77; Resp 17; Pulse Ox 96% on R/A; tw2 MDM: 13:53 Patient medically screened. rn 17:09 Differential diagnosis: Nonspecific abd pain, viral gastroenteritis, gastroenteritis, rn colitis. Data reviewed: vital signs, nurses notes, lab test result(s), radiologic studies, CT scan, and as a result, I will admit patient. Counseling: I had a detailed discussion with the patient and/or guardian regarding: the historical points, exam findings, and any diagnostic results supporting the discharge/admit diagnosis, lab results, radiology results, the need for further work-up and treatment in the hospital. Response to treatment: the patient's symptoms have markedly improved after treatment, and as a result, I will admit patient. Admission orders: after a detailed discussion of the patient's condition and case, the admit orders are written by me. 08/06 13:54 Order name: Basic Metabolic Panel; Complete Time: 15:38 rn 08/06 13:54 Order name: CBC with Diff; Complete Time: 18:20 rn 08/06 13:54 Order name: Hepatic Function; Complete Time: 15:38 rn 08/06 13:54 Order name: Lipase; Complete Time: 15:38 rn 08/06 13:55 Order name: Blood Culture Adult (2) rn 08/06 13:55 Order name: Procalcitonin; Complete Time: 16:18 rn 08/06 13:54 Order name: CT Abd/Pelvis - W/Contrast; Complete Time: 17:08 rn 08/06 13:54 Order name: EKG; Complete Time: 13:55 rn 08/06 13:55 Order name: Lactate; Complete Time: 15:39 rn 08/06 15:33 Order name: Manual Differential; Complete Time: 18:20 EDMS 08/06 13:54 Order name: IV Saline Lock; Complete Time: 14:26 rn 08/06 13:54 Order name: Labs collected and sent; Complete Time: 14:26 rn 08/06 13:54 Order name: EKG - Nurse/Tech; Complete Time: 14:26 rn Administered Medications: 14:38 Drug: NS 0.9% 1000 ml Route: IV; Rate: 1000 ml; Site: left hand; tw2 17:40 Follow up: Response: No adverse reaction; IV Status: Completed infusion; IV Intake: sg 1000ml 14:38 Drug: NS 0.9% 1000 ml Route: IV; Rate: 1000 ml; Site: left hand; tw2 17:39 Follow up: Response: No adverse reaction; IV Status: Completed infusion; IV Intake: sg 1000ml 17:30 Drug: Cipro 400 mg Volume: 200 ml; Route: IVPB; Infused Over: 60 mins; Site: right hand;sg 18:30 Follow up: Response: No adverse reaction; IV Status: Completed infusion tw2 17:30 Drug: Flagyl 500 mg Volume: 100 ml; Route: IVPB; Rate: 200 ml/hr; Infused Over: 30 sg mins; Site: right hand; 18:00 Follow up: Response: No adverse reaction; IV Status: Completed infusion tw2 Point of Care Testing: Blood Glucose: 13:55 Blood Glucose: 128 mg/dL; sg Ranges: Critical Glucose Levels:Adult <50 mg/dl or >400 mg/dl <40 mg/dl or >180 mg/dl Disposition: 08/06/18 17:11 Hospitalization ordered by Tony Winkler for Inpatient Admission. Preliminary diagnosis are Pancolitis, Dehydration, Hypotension. - Bed requested for Telemetry/MedSurg (Inpatient). - Status is Inpatient Admission. ak1 - Condition is Stable. - Problem is new. - Symptoms have improved. UTI on Admission? No Signatures: Dispatcher [employer] EDMS Zaire Navarro RN RN Thaddeus Mckeon MD MD rn Krenek, Amber, RN RN ak1 Nuvia Rodriguez RN RN tw2 Hortensia Beckman RN RN df Corrections: (The following items were deleted from the chart) 18:19 17:11 Hospitalization Ordered by Tony Winkler MD for Inpatient Admission. Preliminary df diagnosis is Pancolitis; Dehydration; Hypotension. Bed requested for Telemetry/MedSurg (Inpatient). Status is Inpatient Admission. Condition is Stable. Problem is new. Symptoms have improved. UTI on Admission? No. rn 20:14 18:19 08/06/2018 17:11 Hospitalization Ordered by Tony Winkler MD for Inpatient ak1 Admission. Preliminary diagnosis is Pancolitis; Dehydration; Hypotension. Bed requested for Telemetry/MedSurg (Inpatient). Status is Inpatient Admission. Condition is Stable. Problem is new. Symptoms have improved. UTI on Admission? No. df
[2018-08-06] MEDS ORDERED: CIPROFLOXACIN 400mg IV 400 MG/200 ML BAG IV ONE (17:34)
[2018-08-06] MEDS ORDERED: METRONIDAZOLE 500mg IVPB 500 MG/100 ML BAG IV ONE (17:34)
[2018-08-06 17:49] LABS: Blood Morphology Comment NOT SEEN (NOT SEEN); Platelet Estimate ADEQ
[2018-08-06] MEDS ORDERED: METOPROLOL TAR 25 MG TAB ONE (17:56)
[2018-08-06] MEDS ORDERED: ACETAMINOPHEN 650MG/RECT SUPP RECT PRN (22:00)
[2018-08-06] MEDS: NA CHLORIDE 0.9% 1,000 ML IV SCH (23:15)
--- NOTE | 2018-08-06 23:21 | P.CNS ---
Date of Consult: 08/06/18 PC: This 82-year-old female presented to the emergency room with a three-day history of abdominal pain and diarrhea for diagnosis and treatment. HPC: Patient apparently was on some antibiotics about a month ago for bronchitis. Had been doing well until last week. Start developed lower abdominal pains had watery diarrhea. This has persisted over the last 4 days. Came to the emergency room for evaluation PMH: COPD, hypertension SOC: Allergies and meds reviewed SYS REVIEW: States she is otherwise in good health. Lives by herself. Her daughter is approximately 5 houses away. Says are health apart from the and bout of bronchitis has been good. O/E awake alert, vital signs are stable at the moment was hypotensive in the ER. Very pale at the moment HEENT: Within normal limits, not jaundice Chest: Chest movement equal bilaterally ABD: Soft nontender no guarding or rebound LOCO: Intact DATA: Elevated white cell count, CT scan demonstrates pen colitis IMPRESSION: Most likely C diff colitis PLAN: The patient is receiving IV fluids, pain medicines been ordered, incisions start on antibiotics. We will review her and again in the morning. In the meantime patient may have clear liquids.
[2018-08-07] MEDS: METRONIDAZOLE 500mg IVPB 500 MG/100 ML BAG IV SCH ×5 (00:24→23:27)
[2018-08-07 01:48] LABS: Urine Appearance CLEAR; Urine Bilirubin NEGATIVE (NEG); Urine Blood NEGATIVE (NEG); Urine Color DK YELLOW; Urine Glucose NEGATIVE (NEG); Urine Protein 1+ (NEG); Urine Specific Gravity >=1.030 (1.005-1.030); Urine Urobilinogen 0.2 mg/dL (0.2-1.0); Urine pH 5.5 (5.0-7.0)
[2018-08-07 02:19] LABS: Urine Microscopic Reflex ORDER UMIC
[2018-08-07] MEDS: ACETAMINOPHEN 500 MG TAB PO PRN ×3 (02:22→20:36)
[2018-08-07] MEDS ORDERED: DRISDOL (VITAMIN D=ERGOCALCIFEROL) 50000 UNIT CAP PO SCH (03:00)
[2018-08-07 03:24] LABS: Urine Bacteria <20 /HPF (<20); Urine Culture Reflex Order REFLEXED; Urine RBC NONE SEEN /HPF (NONE SEEN)
--- NOTE | 2018-08-07 05:20 | HP ---
Date of Admission: 08/06/2018 Consultants: Dr. Apollo Mata with General Surgery. Primary Care Physician: At [facility]. Chief Complaint: Abdominal pain. History Of Present Illness: The patient is an 82-year-old female with past medical history of restle ss legs syndrome, dementia, hypertension, status post pacemaker, comes in with abdominal pain of 3-da y duration. The patient states she also had nausea, vomiting, and diarrhea. No onset is acute. No alleviating or aggravating factors. The patient's pain is generalized, nonradiating, sharp in qualit y. The patient had some subjective fevers. No outside travel. No unusual foods or well water. The patient was on antibiotics for bronchitis at [facility] several weeks ago. In the ER, the patient was very hypotensive with a blood pressure in the 60 systolic. Her white count was 23,000. CT scan showed pancolitis. She was resuscitated with IV fluids, and responded well. The patient was then referred for admission. When seen in the ER, she was awake, alert, and oriented x3. Some mild distress due to pain. Past Medical History: Hypertension, restless legs syndrome, dementia. She has also had history of C VA and TIAs. Past Surgical History: Pacemaker placement, appendectomy, foot surgery, hernia repair. Social History: The patient denies any tobacco use, alcohol use, or illicit drug use. The patient l dyllan by herself, does need significant assistance in her activities of daily living, has daughter in the daytime, and other caregivers at night with her at all times. Family History: Heart disease runs in her side of the family. The patient's mother of lymphosa rcoma. Father also had heart disease. Medications: List reviewed. Allergies: NO KNOWN DRUG ALLERGIES. SEASONAL ALLERGIES TO CALCITONIN, CEPHALEXIN, EVISTA, NIFEDIPIN E, METHYLPREDNISOLONE, AND DIPHENHYDRAMINE. Review of Systems: An 11-point system reviewed, negative except as per HPI. Physical Examination: Vital Signs: Blood pressure 73/47, pulse 66, respirations 17, O2 96% on room air, temperature 97.9. General: Awake, alert, oriented x3, in some mild distress. Elderly female, ill appearing. HEENT: Normocephalic, atraumatic. PERRLA. EOMI. Dry mucous membranes. Poor dentition. Conjuncti vae anicteric. Neck: Supple. No JVD. Trachea midline. CV: S1, S2. Regular rate and rhythm. Peripheral pulses present. Respiratory: Moving air well bilaterally. No wheezing or stridor. No use of accessory muscles. Gastrointestinal: Abdomen is soft. Mild tenderness to palpation. No guarding or rigidity. No palp able masses. Bowel sounds positive. Extremities: No clubbing, cyanosis, or edema. No calf tenderness. NEURO: Cranial nerves 2 through 12 intact grossly. No focal neurological deficit. Speech is normal . Strength is symmetric in bilateral upper and lower extremities. Psych: Mood is okay. Affect is full. Insight and judgment are good. Skin: No rashes. Normal skin turgor. Laboratory Data: Sodium 139, potassium 4.1, chloride 106, CO2 23, BUN 29, creatinine 1.23, glucose 1 22, lactate 1.7, calcium 7.3. Procalcitonin 0.21. WBC 23,000, H and H 12 and 37, platelets 189, luzma trophils 83%, 4% bands. CT scan of the abdomen and pelvis showing pancolitis, mild to moderate. No mass, free air, or surgically emergent finding. Large hiatal hernia. Minimal amount of free fluid i n the peritoneal cavity. Assessment And Plan: An 82-year-old female with: 1.Generalized abdominal pain secondary to colitis. We will start on IV fluids, keep n.p.o., and IV analgesia. 2.Pancolitis, [id number]. Rule out Clostridium difficile. We will obtain stool cultures and Clostridium difficile assay. Dr. Mata with General Surgery has been consulted. The patient does have some free fluid in the peritoneal cavity. May need surgical intervention. 3.Hypotension, likely due to colitis. The patient responded well to fluids. We will continue with IV fluid resuscitation. No signs of sepsis. The patient's lactate and procalcitonin are normal. Sh e does have an elevated white count of 23,000. No tachycardia. No fever. We will continue to monit or for developing signs of sepsis. 4.Restless legs syndrome. 5.History of Alzheimer's dementia, early onset, without behavioral disturbance. 6.History of cerebrovascular accident and transient ischemic attack, stable. We will hold any blood thinners for now in case of emergent surgical intervention required. 7.Status post pacemaker, last interrogation was 3 months ago. The patient's Cardiology is in [facility]. PLAN: Admit the patient to [facility], place as inpatient. Code status is full code. The patient's d aughter is the medical power of molecular biology director. We will get criminal justice social worker consultation. Daughter needs re spite for the patient's care. I explained to the patient's daughter that the patient may require palma gracie. Surgical consultation has been obtained. No gastrointestinal consultation is available. The patient's daughter prefers that the patient go to [facility] for any surgery. I explained to her that at this point, the patient's options are to be transferred from the ER, which daughter is not intere sted in at this point. She understands that an inpatient transfer will require accepting physician, administrative acceptance, as well as bed availability at [facility]. She understands, agre es with admission at this facility. Dr. Mata has been consulted. He will see the patient today. Overall prognosis is guarded. KERRIE Voice ID: [id number]
[2018-08-07] MEDS: ONDANSETRON 4 MG/2 ML VIAL IV PRN (05:23)
[2018-08-07] MEDS: NA CHLORIDE 0.9% 1,000 ML IV SCH ×2 (05:23→14:07)
[2018-08-07] MEDS: CIPROFLOXACIN 400mg IV 400 MG/200 ML BAG IV SCH ×3 (05:23→17:31)
[2018-08-07] MEDS: LEVOTHYROXINE SOD 0.1 MG TAB PO SCH (05:36)
[2018-08-07 06:12] LABS: Absolute Lymphocytes (CBC) 0.7 K/uL (0.7-4.9); Absolute Neutrophil 18.4 K/uL (1.8-8.0); Basophils % 0.1 % (0-1.3); Eosinophils % 0.2 % (0-4.4); Hematocrit 36.6 % (36.0-45.0); MPV 10.2 fL (7.6-11.3); Monocytes % 13.7 % (3.3-12.3); RBC Red Blood Cell Count 4.13 M/uL (3.86-4.86)
[2018-08-07 06:17] LABS: Albumin 2.4 g/dL (3.4-5.0); Bilirubin Total 0.5 mg/dL (0.2-1.0); Potassium 3.7 mmol/L (3.5-5.1); Protein, Total 4.8 g/dL (6.4-8.2)
[2018-08-07] MEDS ORDERED: PNEUMOCOCCAL VACCINE 0.5 ML IMVAC ONE (08:00)
[2018-08-07] MEDS ORDERED: POTASSIUM CL SA 10 MEQ TAB PO ONE (08:11)
[2018-08-07] MEDS ORDERED: MAGNESIUM SULFATE 1 gm IVPB 1 GM/100 ML BAG IV ONE (08:12)
[2018-08-07] MEDS ORDERED: [UNRECOGNIZED DRUG - OTHER] PO SCH (09:00)
[2018-08-07] MEDS ORDERED: LEFLUNOMIDE PO SCH (09:00)
[2018-08-07] MEDS ORDERED: GALANTAMINE 24 MG PO SCH (09:00)
[2018-08-07] MEDS ORDERED: CEVIMELINE HCL PO SCH (09:00)
[2018-08-07] MEDS ORDERED: NEURO TD SCH (09:00)
[2018-08-07] MEDS ORDERED: UBIQUINONE 100 MG PO SCH (09:00)
[2018-08-07] MEDS: FUROSEMIDE 20 MG TABLET PO SCH (09:39)
[2018-08-07] MEDS: clonazePAM 1 MG TAB PO SCH ×2 (09:40→20:36)
[2018-08-07] MEDS: PRAMIPEXOLE 0.25 MG TAB PO SCH (09:40)
[2018-08-07] MEDS: RAMIPRIL 5 MG CAP PO SCH (09:40)
[2018-08-07] MEDS: CITALOPRAM 10 MG TABLET PO SCH (09:41)
[2018-08-07] MEDS: SPIRONOLACTONE 25 MG TABLET PO SCH (09:41)
[2018-08-07] MEDS: CARVEDILOL 3.125 MG TAB PO SCH ×2 (09:41→21:00)
[2018-08-07] MEDS: MEMANTINE HCL 10 MG TABLET PO SCH ×2 (09:41→20:36)
[2018-08-07] MEDS: HYDROXYCHLOROQUINE 200MG TAB PO SCH ×2 (10:26→20:36)
--- NOTE | 2018-08-07 15:50 | P.PN ---
Date of Service: 08/07/18 S: Patient states she feels somewhat better today. Still having some abdominal pain and diarrhea. O: Vital signs are stable at the moment. Has received 1 unit of blood. A : Clinically appears to be improving P: Continue current therapy. (Awaiting results of C diff)
[2018-08-07] MEDS: TRAZODONE 50 MG TABLET PO SCH (20:35)
[2018-08-07] MEDS: ATORVASTATIN 40 MG TAB PO SCH (20:36)
[2018-08-07] MEDS: GABAPENTIN 400 MG CAP PO SCH (20:36)
[2018-08-07] MEDS: ASPIRIN 81 MG CHEWABLE TABLET PO SCH (20:39)
[2018-08-07] MEDS: AMLODIPINE 10 MG TAB PO SCH (21:00)
--- NOTE | 2018-08-07 21:44 | P.PN ---
Subjective Date of Service: 08/07/18 Chief Complaint: Diarrhea Subjective: No new changes Patient seen and examined at bedside. No family at bedside. Chart reviewed and case discussed with nursing staff. Patient with episodes of hypotension, improving with normal saline bolus No other acute events noted overnight Review of Systems 10-point ROS is otherwise unremarkable Physical Examination - Vital Signs Temperature: 98.5 F Blood Pressure: 123/52 Pulse: 92 Respirations: 20 Pulse Ox (%): 96 - Physical Exam General: Alert, In no apparent distress, Oriented x3 HEENT: Atraumatic, PERRLA, EOMI Neck: Supple, JVD not distended Respiratory: Clear to auscultation bilaterally, Normal air movement Cardiovascular: Regular rate/rhythm, Normal S1 S2 Gastrointestinal: Normal bowel sounds, No tenderness Musculoskeletal: No tenderness Integumentary: No rashes Neurological: Normal speech, Normal tone, Normal affect Lymphatics: No axilla or inguinal lymphadenopathy Assessment And Plan - Plan An 82-year-old female with: 1. Generalized abdominal pain secondary to colitis. We will start on IV fluids, IV analgesia. Tolerating clear liquids, will continue. 2. C. diff Pancolitis, [id number]. Start PO vancomycin. Dr. Mata with General Surgery has been consulted, recommendations appreciated. No surgical intervention at this time. 3. Hypotension, likely due to colitis. The patient responded well to fluids. We will continue with IV fluid resuscitation. No signs of sepsis. The patient's lactate and procalcitonin are normal. She does have an elevated white count, though improving. No tachycardia. No fever. We will continue to monitor for developing signs of sepsis. Hold BP meds at this time. 4. Restless legs syndrome. 5. History of Alzheimer's dementia, early onset, without behavioral disturbance. 6. History of cerebrovascular accident and transient ischemic attack, stable. We will hold any blood thinners for now in case of emergent surgical intervention required. 7. Status post pacemaker, last interrogation was 3 months ago. The patient's Cardiology is in [facility].
--- NOTE | 2018-08-07 21:49 | P.PN ---
Date of Service: 08/07/18 12:03 pm: stopped by nurse for low blood pressure. Patient received coreg, aldactone, lasix, and norvasc. Prior to meds, BP was 1138/58. BP after the medications was 70/40. I examined the patient at bedside, patient symptomatic, complaining of dizziness and lightheadedness. Patient placed in trendelenburg position and 1 L NS bolus ordered. BP parameters placed on medications as a nursing order. Instructed nurse and charge nurse to monitor BP and call me in 15-20 minutes for an update. If it continues to remain low, will transfer patient to ICU. Update: 12:30 pm: Call recieved from charge nurse w/ updated BP. BP stabalized at 115/ 50s. Pt out of trendelenburg. Will complete the rest of the 500 ml of NS as bolus.
[2018-08-07] MEDS ORDERED: TEMAZEPAM 15 MG CAP PO ONE (22:51)
[2018-08-07] MEDS: VANCOMYCIN ORAL SOLN 250 MG/5 ML OSYR PO SCH (23:31)
[2018-08-08] MEDS: NA CHLORIDE 0.9% 1,000 ML IV SCH ×3 (03:40→12:04)
[2018-08-08] MEDS: ACETAMINOPHEN 500 MG TAB PO PRN (03:40)
[2018-08-08] MEDS: CIPROFLOXACIN 400mg IV 400 MG/200 ML BAG IV SCH ×2 (05:21→18:13)
[2018-08-08] MEDS: LEVOTHYROXINE SOD 0.1 MG TAB PO SCH (05:22)
[2018-08-08] MEDS: VANCOMYCIN ORAL SOLN 250 MG/5 ML OSYR PO SCH ×4 (05:22→23:52)
[2018-08-08 05:28] LABS: Absolute Lymphocytes (CBC) 0.6 K/uL (0.7-4.9); Absolute Monocytes 3.6 K/uL (0.1-1.3); Absolute Neutrophil 20.4 K/uL (1.8-8.0); Basophils % 0.1 % (0-1.3); Eosinophils % 0.5 % (0-4.4); Hematocrit 33.7 % (36.0-45.0); Lymphocytes % 2.5 % (15.3-44.8); MPV 9.6 fL (7.6-11.3); Monocytes % 14.6 % (3.3-12.3); RBC Red Blood Cell Count 3.88 M/uL (3.86-4.86)
[2018-08-08 05:50] LABS: Magnesium 1.7 mg/dL (1.8-2.4); Potassium 3.6 mmol/L (3.5-5.1)
[2018-08-08] MEDS ORDERED: CALCIUM GLUC 10% INJ 4.65 MEQ in NA CHLORIDE 0.9% 100 ML IV ONE (05:57)
[2018-08-08] MEDS ORDERED: Magnesium Sulfate 2gm IVPB 2 G/50 ML BAG IV ONE ×2 (05:57→06:06)
[2018-08-08] MEDS ORDERED: MAGNESIUM SULFATE 1 gm IVPB 1 GM/100 ML BAG IV ONE (07:00)
[2018-08-08] MEDS: CARVEDILOL 3.125 MG TAB PO SCH ×2 (09:00→21:00)
[2018-08-08] MEDS ORDERED: POTASSIUM CL SA 10 MEQ TAB PO ONE (09:00)
[2018-08-08] MEDS: SPIRONOLACTONE 25 MG TABLET PO SCH (09:00)
[2018-08-08] MEDS: clonazePAM 1 MG TAB PO SCH ×2 (09:00→21:00)
[2018-08-08] MEDS: FUROSEMIDE 20 MG TABLET PO SCH (09:00)
[2018-08-08] MEDS: RAMIPRIL 5 MG CAP PO SCH (09:00)
[2018-08-08] MEDS: METRONIDAZOLE 500mg IVPB 500 MG/100 ML BAG IV SCH ×2 (09:50→18:13)
[2018-08-08] MEDS: MEMANTINE HCL 10 MG TABLET PO SCH ×2 (09:52→23:52)
[2018-08-08] MEDS: HYDROXYCHLOROQUINE 200MG TAB PO SCH ×2 (09:53→21:00)
[2018-08-08] MEDS: CITALOPRAM 10 MG TABLET PO SCH (09:53)
[2018-08-08] MEDS: PRAMIPEXOLE 0.25 MG TAB PO SCH (09:53)
[2018-08-08] MEDS: CALCIUM CARB 500MG/VIT D 200 IU TAB PO SCH (09:55)
[2018-08-08] MEDS ORDERED: ALBUTEROL INHALER 60 PUFF/8 GM IH PRN (14:13)
[2018-08-08] MEDS ORDERED: NOREPINEPHRINE 4 MG in D5W 250 ML IV PRN (15:23)
[2018-08-08] MEDS ORDERED: LIDOCAINE 1% 20 ML MDV ONE (17:24)
--- NOTE | 2018-08-08 17:48 | P.OP ---
Preoperative diagnosis: Need for Central IV Access Postoperative diagnosis: Need for Central IV Access Primary procedure: Placement of Right Femoral Central Line Anesthesia: Local 1% lidocaine used 5cc Estimated blood loss: <10cc Specimen: None Findings: Dark Nonpulsatile blood returned Complications: None Transferred to: ICU Condition: Serious
[2018-08-08] MEDS: ONDANSETRON 4 MG/2 ML VIAL IV PRN (18:13)
--- NOTE | 2018-08-08 18:27 | P.PN ---
Subjective Date of Service: 08/08/18 Chief Complaint: Diarrhea Patient seen and examined at bedside. No family at bedside. Chart reviewed and case discussed with nursing staff. Patient with episodes of hypotension, despite holding all blood pressure medications. Still having watery, mucus diarrhea Review of Systems 10-point ROS is otherwise unremarkable Physical Examination - Vital Signs Temperature: 98.5 F Blood Pressure: 123/52 Pulse: 92 Respirations: 20 Pulse Ox (%): 96 - Physical Exam General: Alert, Oriented x3, Mild distress HEENT: Atraumatic, PERRLA, EOMI Neck: Supple, JVD not distended Respiratory: Clear to auscultation bilaterally, Normal air movement, Other (No evidence of volume overload noted on lung exam) Cardiovascular: Regular rate/rhythm, Normal S1 S2, Edema (Bilateral lower extremity) Gastrointestinal: Normal bowel sounds, No tenderness Musculoskeletal: No tenderness Integumentary: No rashes Neurological: Normal speech, Normal tone, Normal affect Lymphatics: No axilla or inguinal lymphadenopathy Assessment And Plan - Plan An 82-year-old female with: Hypotension episodes Likely secondary to watery diarrhea along with C. diff infection Despite fluid resuscitation, patient's blood pressure not responding. Patient was transferred to the ICU for closer watch. She was started on Levophed to keep the map of 65. Unfortunately patient's IV access with that, general surgery was consulted for central line placement, placed successfully and patient tolerated well. Blood pressure is stable at this time, we will continue to monitor, continue Levophed to keep map of 65 or above. No signs of sepsis. The patient's lactate and procalcitonin are normal. She does have an elevated white count, though improving. No tachycardia. No fever. We will continue to monitor for developing signs of sepsis. Hold BP meds at this time Generalized abdominal pain secondary to colitis. We will start on IV fluids, IV analgesia. Tolerating clear liquids, will continue. C. diff Pancolitis, [id number]. Continue PO vancomycin. Dr. Mata with General Surgery has been consulted, recommendations appreciated. No surgical intervention at this time. Restless legs syndrome. History of Alzheimer's dementia, early onset, without behavioral disturbance. History of cerebrovascular accident and transient ischemic attack, stable. We will hold any blood thinners for now in case of emergent surgical intervention required. Status post pacemaker, last interrogation was 3 months ago. The patient's Cardiology is in [facility]. DVT prophylaxis: Lovenox GI prophylaxis: None Diet: Clear liquids, advance as tolerated Disposition: Transferred to ICU, continue to monitor blood pressure. Continue oral vancomycin.
[2018-08-08] MEDS: AMLODIPINE 10 MG TAB PO SCH (21:00)
[2018-08-08] MEDS: ATORVASTATIN 40 MG TAB PO SCH (23:52)
[2018-08-08] MEDS: GABAPENTIN 400 MG CAP PO SCH (23:52)
[2018-08-08] MEDS: ASPIRIN 81 MG CHEWABLE TABLET PO SCH (23:52)
[2018-08-09] MEDS: ONDANSETRON 4 MG/2 ML VIAL IV PRN ×2 (01:04→12:52)
[2018-08-09] MEDS: NA CHLORIDE 0.9% 1,000 ML IV SCH ×3 (01:47→18:00)
[2018-08-09] MEDS: METRONIDAZOLE 500mg IVPB 500 MG/100 ML BAG IV SCH ×3 (01:58→18:00)
[2018-08-09] MEDS: TRAZODONE 50 MG TABLET PO SCH ×2 (02:04→20:04)
[2018-08-09] MEDS: clonazePAM 1 MG TAB PO SCH ×3 (03:32→20:04)
--- NOTE | 2018-08-09 04:18 | OP ---
Date of Procedure: 08/08/2018 Surgeon: Hugo Man MD, Preoperative Diagnosis: Need for central venous access. Postoperative Diagnosis: Need for central venous access. Procedure Performed: Placement of right femoral central line. Anesthesia: Local 1% lidocaine used, approximately 5 cc. Estimated Blood Loss: Less than 10 cc. Specimen: None. Findings: Dark nonpulsatile blood return. Complications: None. Disposition: The patient remained in ICU in serious condition. Procedure In Detail: After informed consent was obtained, the patient was prepped and draped in the usual sterile fashion. After adequate anesthesia was achieved using the microintroducer set, I cannu lated the right femoral vein on the second attempt. Dark red nonpulsatile blood was returned and the micro wire was advanced at this time. The needle was removed and the area was inspected. There was a small haylee incision made over the insertion site and the micro introducer was placed at this time. Wire out was called with a micro wire. Dark red nonpulsatile blood was returned and the standard w melody was advanced at this point pulling the introducer sheath out at this time, allowed for sequential dilatation of the tract into the femoral vein. At this point, the catheter was introduced in the [facility] femoral vein with evidence of complication and dark red nonpulsatile blood was returned from all 3 ports and they flushed quite easily. The Biopatch was placed. The catheter was secured to the ski n with the 2-0 nylon attached and a sterile dressing was placed over top. The patient tolerated the procedure well without evidence of complication and remained in the ICU in serious condition. All counts were correct at the end of the case. ADAN/JOSE Voice ID: [id number] Report ID: [id number]
[2018-08-09 05:35] LABS: Absolute Lymphocytes (CBC) 0.7 K/uL (0.7-4.9); Absolute Monocytes 3.8 K/uL (0.1-1.3); Absolute Neutrophil 25.3 K/uL (1.8-8.0); Basophils % 0.1 % (0-1.3); Eosinophils % 0.3 % (0-4.4); Hematocrit 34.3 % (36.0-45.0); Lymphocytes % 2.3 % (15.3-44.8); MPV 9.9 fL (7.6-11.3); Monocytes % 12.8 % (3.3-12.3); RBC Red Blood Cell Count 3.96 M/uL (3.86-4.86)
[2018-08-09 06:06] LABS: Bilirubin Total 0.4 mg/dL (0.2-1.0); Magnesium 2.3 mg/dL (1.8-2.4); Potassium 3.8 mmol/L (3.5-5.1); Protein, Total 4.3 g/dL (6.4-8.2)
[2018-08-09 06:30] LABS: Blood Morphology Comment NOTED (NOT SEEN); Burr Cells 3+; Ovalocytes 2+; Platelet Estimate ADEQ
[2018-08-09] MEDS: LEVOTHYROXINE SOD 0.1 MG TAB PO SCH (06:37)
[2018-08-09] MEDS: VANCOMYCIN ORAL SOLN 250 MG/5 ML OSYR PO SCH ×3 (06:37→18:26)
[2018-08-09] MEDS ORDERED: POTASSIUM CL SA 10 MEQ TAB PO ONE (07:09)
[2018-08-09] MEDS ORDERED: KCL 20 MEQ/100 mL IVPB 20 MEQ/100 ML BAG IV SCH (08:00)
[2018-08-09] MEDS: CARVEDILOL 3.125 MG TAB PO SCH ×2 (09:00→21:00)
[2018-08-09] MEDS: FUROSEMIDE 20 MG TABLET PO SCH (09:00)
[2018-08-09] MEDS: SPIRONOLACTONE 25 MG TABLET PO SCH (09:00)
[2018-08-09] MEDS: RAMIPRIL 5 MG CAP PO SCH (09:00)
[2018-08-09] MEDS: ACETAMINOPHEN 500 MG TAB PO PRN (10:29)
[2018-08-09] MEDS: MEMANTINE HCL 10 MG TABLET PO SCH ×2 (10:29→20:04)
[2018-08-09] MEDS: CITALOPRAM 10 MG TABLET PO SCH (10:29)
[2018-08-09] MEDS: CALCIUM CARB 500MG/VIT D 200 IU TAB PO SCH (10:30)
[2018-08-09] MEDS: HYDROXYCHLOROQUINE 200MG TAB PO SCH ×2 (10:30→20:04)
[2018-08-09] MEDS: PRAMIPEXOLE 0.25 MG TAB PO SCH (10:30)
[2018-08-09] MEDS ORDERED: LORazepam 2 MG/ML VIAL IV ONE (16:00)
--- NOTE | 2018-08-09 17:13 | P.PN ---
Subjective Date of Service: 08/09/18 Chief Complaint: Diarrhea Subjective: No new changes Patient seen and examined at bedside. No family at bedside. Chart reviewed and case discussed with nursing staff. Overnight, blood pressures stabilized. Off of levaphed since 4 am, BP remains stable in ICU Still having watery, mucus diarrhea Continues to be restless. Per daughter, she is like this everyday at home. Central line in place Review of Systems 10-point ROS is otherwise unremarkable Physical Examination - Vital Signs Temperature: 98.6 F Blood Pressure: 107/35 Pulse: 81 Respirations: 14 Pulse Ox (%): 94 - Physical Exam General: Alert, Oriented x3, Mild distress HEENT: Atraumatic, PERRLA, EOMI Neck: Supple, JVD not distended Respiratory: Clear to auscultation bilaterally, Normal air movement Cardiovascular: Regular rate/rhythm, Normal S1 S2 Gastrointestinal: Normal bowel sounds, No tenderness Musculoskeletal: No tenderness Integumentary: No rashes Neurological: Normal speech, Normal tone, Normal affect Assessment And Plan - Plan An 82-year-old female with: Hypotension Improving. Off of levophed now. Likely secondary to watery diarrhea along with C. diff infection Despite fluid resuscitation, patient's blood pressure not responding. Patient was transferred to the ICU for closer watch. She was started on Levophed to keep the map of 65. Unfortunately patient's IV access went bad, general surgery was consulted for central line placement, placed successfully and patient tolerated well. Blood pressure is stable at this time, we will continue to monitor, continue Levophed to keep map of 65 or above. No tachycardia. No fever. We will continue to monitor for developing signs of sepsis. Hold BP meds at this time Generalized abdominal pain secondary to colitis. We will start on IV fluids, IV analgesia. Tolerating clear liquids, will continue. C. diff Pancolitis, [id number]. Continue PO vancomycin. Dr. Mata with General Surgery has been consulted, recommendations appreciated. No surgical intervention at this time. Restless legs syndrome. It seems that she is continuously moving. The worry is that she may pull out her central line. She is currently getting pramiprexole, gabapentin and clonipin. Although daughter states that she is close to baseline in regards to her restlessness. Close monitoring to make sure does not pull on central line. Trial of 1 time ativan, though will closely watch blood pressure. May increase neurontin dosage if no help. History of Alzheimer's dementia, early onset, without behavioral disturbance. History of cerebrovascular accident and transient ischemic attack, stable. We will hold any blood thinners for now in case of emergent surgical intervention required. Status post pacemaker, last interrogation was 3 months ago. The patient's Cardiology is in [facility]. DVT prophylaxis: On hold GI prophylaxis: None Diet: Clear liquids, advance as tolerated Disposition: Continue to monitor in the ICU. If BP remains stable, may consider transfer to the floor tomorrow. Critical Care: Yes
[2018-08-09] MEDS: GABAPENTIN 400 MG CAP PO SCH (20:04)
[2018-08-09] MEDS: ASPIRIN 81 MG CHEWABLE TABLET PO SCH (20:04)
[2018-08-09] MEDS: ATORVASTATIN 40 MG TAB PO SCH (20:04)
[2018-08-09] MEDS: AMLODIPINE 10 MG TAB PO SCH (21:00)
[2018-08-10] MEDS: VANCOMYCIN ORAL SOLN 250 MG/5 ML OSYR PO SCH ×4 (01:57→17:49)
[2018-08-10] MEDS: METRONIDAZOLE 500mg IVPB 500 MG/100 ML BAG IV SCH ×3 (01:57→17:48)
[2018-08-10] MEDS: NA CHLORIDE 0.9% 1,000 ML IV SCH ×2 (04:00→13:13)
[2018-08-10] MEDS: LEVOTHYROXINE SOD 0.1 MG TAB PO SCH (06:23)
[2018-08-10 06:58] LABS: Absolute Lymphocytes (CBC) 0.7 K/uL (0.7-4.9); Absolute Neutrophil 23.9 K/uL (1.8-8.0); Basophils % 0.1 % (0-1.3); Hematocrit 34.9 % (36.0-45.0); Lymphocytes % 2.4 % (15.3-44.8); MPV 9.4 fL (7.6-11.3); Monocytes % 10.9 % (3.3-12.3); RBC Red Blood Cell Count 4.04 M/uL (3.86-4.86)
[2018-08-10 07:05] LABS: Bilirubin Total 0.5 mg/dL (0.2-1.0); Potassium 4.1 mmol/L (3.5-5.1); Protein, Total 4.2 g/dL (6.4-8.2)
[2018-08-10] MEDS: PRAMIPEXOLE 0.25 MG TAB PO SCH (08:43)
[2018-08-10] MEDS: clonazePAM 1 MG TAB PO SCH ×2 (08:43→20:11)
[2018-08-10] MEDS: MEMANTINE HCL 10 MG TABLET PO SCH ×2 (08:43→20:11)
[2018-08-10] MEDS: CITALOPRAM 10 MG TABLET PO SCH (08:43)
[2018-08-10] MEDS: CALCIUM CARB 500MG/VIT D 200 IU TAB PO SCH (08:43)
[2018-08-10] MEDS: HYDROXYCHLOROQUINE 200MG TAB PO SCH ×2 (08:43→20:11)
[2018-08-10] MEDS: SPIRONOLACTONE 25 MG TABLET PO SCH (09:00)
[2018-08-10] MEDS: CARVEDILOL 3.125 MG TAB PO SCH ×2 (09:00→20:12)
[2018-08-10] MEDS: RAMIPRIL 5 MG CAP PO SCH (09:00)
[2018-08-10] MEDS: ONDANSETRON 4 MG/2 ML VIAL IV PRN ×3 (10:37→21:50)
--- NOTE | 2018-08-10 11:51 | RAD REPORT ---
EXAM DESCRIPTION: Leticia Single View08/10/2018 11:40 am CLINICAL HISTORY: Leukocytosis COMPARISON: April 2018 FINDINGS: The right base is hazy. Left lung appears clear The heart is mildly enlarged. Pacemaker leads are in place. IMPRESSION: Right base is hazy which may be secondary to a small pleural effusion, atelectasis or i nfiltrate
[2018-08-10] MEDS: FUROSEMIDE 20 MG TABLET PO SCH (12:30)
--- NOTE | 2018-08-10 19:04 | P.PN ---
Subjective Date of Service: 08/10/18 Chief Complaint: Diarrhea Subjective: Improving Patient seen and examined at bedside. No family at bedside. Chart reviewed and case discussed with nursing staff. Overnight, blood pressures stabilized. Off of levaphed for over 24 hr. BP remains stable in ICU 3 episodes of watery mucousy diarrhea last night, but only 1 this morning. Restlessness much improved cough. At the time of my exam, waxes sleeping. Central line in place Review of Systems 10-point ROS is otherwise unremarkable Physical Examination - Vital Signs Temperature: 98.1 F Blood Pressure: 111/64 Pulse: 80 Respirations: 14 Pulse Ox (%): 97 - Physical Exam General: Alert, In no apparent distress, Oriented x3 HEENT: Atraumatic, PERRLA, EOMI Neck: Supple, JVD not distended Respiratory: Clear to auscultation bilaterally, Normal air movement Cardiovascular: Regular rate/rhythm, Normal S1 S2 Gastrointestinal: Normal bowel sounds, No tenderness Musculoskeletal: No tenderness Integumentary: No rashes Neurological: Normal speech, Normal tone, Normal affect Lymphatics: No axilla or inguinal lymphadenopathy Assessment And Plan - Plan An 82-year-old female with: Hypotension stable Off of levophed now. Likely secondary to watery diarrhea along with C. diff infection Despite fluid resuscitation, patient's blood pressure not responding. Patient was transferred to the ICU for closer watch. She was started on Levophed to keep the map of 65. Unfortunately patient's IV access went bad, general surgery was consulted for central line placement, placed successfully and patient tolerated well. Blood pressure is stable at this time, we will continue to monitor, continue Levophed to keep map of 65 or above. No tachycardia. No fever. We will continue to monitor for developing signs of sepsis. Hold BP meds at this time Generalized abdominal pain secondary to colitis. Tolerating clear liquids, will continue. C. diff Pancolitis, [id number]. Continue PO vancomycin. Dr. Mata with General Surgery has been consulted, recommendations appreciated. No surgical intervention at this time. Restless legs syndrome. Much improved this morning It seems that she is continuously moving. The worry is that she may pull out her central line. She is currently getting pramiprexole, gabapentin and clonipin. Although daughter states that she is close to baseline in regards to her restlessness. Close monitoring to make sure does not pull on central line. Trial of 1 time ativan, though will closely watch blood pressure. May increase neurontin dosage if no help. History of Alzheimer's dementia, early onset, without behavioral disturbance. History of cerebrovascular accident and transient ischemic attack, stable. We will hold any blood thinners for now in case of emergent surgical intervention required. Status post pacemaker, last interrogation was 3 months ago. The patient's Cardiology is in [facility]. DVT prophylaxis: On hold GI prophylaxis: None Diet: Clear liquids, advance as tolerated Disposition: This is blood pressures of remained stable, will go ahead and transfer to the floor. May get physical therapy consulted once patient more stable.
[2018-08-10] MEDS: TRAZODONE 50 MG TABLET PO SCH (20:10)
[2018-08-10] MEDS: ASPIRIN 81 MG CHEWABLE TABLET PO SCH (20:10)
[2018-08-10] MEDS: GABAPENTIN 400 MG CAP PO SCH (20:10)
[2018-08-10] MEDS: ATORVASTATIN 40 MG TAB PO SCH (20:11)
[2018-08-10] MEDS: AMLODIPINE 10 MG TAB PO SCH (20:12)
[2018-08-10] MEDS ORDERED: LORazepam 2 MG/ML VIAL IV ONE (21:35)
[2018-08-11] MEDS: VANCOMYCIN ORAL SOLN 250 MG/5 ML OSYR PO SCH ×4 (00:07→17:14)
[2018-08-11] MEDS: METRONIDAZOLE 500mg IVPB 500 MG/100 ML BAG IV SCH ×3 (00:09→17:14)
[2018-08-11 05:13] VITALS: BMI 33.7
[2018-08-11] MEDS: LEVOTHYROXINE SOD 0.1 MG TAB PO SCH (05:58)
[2018-08-11 06:28] LABS: Absolute Lymphocytes (CBC) 0.7 K/uL (0.7-4.9); Absolute Monocytes 2.7 K/uL (0.1-1.3); Absolute Neutrophil 17.4 K/uL (1.8-8.0); Basophils % 0.1 % (0-1.3); Eosinophils % 1.4 % (0-4.4); Hematocrit 35.1 % (36.0-45.0); Lymphocytes % 3.2 % (15.3-44.8); MPV 9.4 fL (7.6-11.3); RBC Red Blood Cell Count 4.07 M/uL (3.86-4.86)
[2018-08-11 06:34] LABS: Albumin 2.1 g/dL (3.4-5.0); Bilirubin Total 0.5 mg/dL (0.2-1.0); Magnesium 2.4 mg/dL (1.8-2.4); Potassium 3.9 mmol/L (3.5-5.1); Protein, Total 4.4 g/dL (6.4-8.2)
[2018-08-11] MEDS: CARVEDILOL 3.125 MG TAB PO SCH ×2 (09:00→22:12)
[2018-08-11] MEDS: RAMIPRIL 5 MG CAP PO SCH (09:00)
[2018-08-11] MEDS: SPIRONOLACTONE 25 MG TABLET PO SCH (09:00)
[2018-08-11] MEDS: MEMANTINE HCL 10 MG TABLET PO SCH ×2 (09:05→22:11)
[2018-08-11] MEDS: PRAMIPEXOLE 0.25 MG TAB PO SCH (09:05)
[2018-08-11] MEDS: HYDROXYCHLOROQUINE 200MG TAB PO SCH ×2 (09:05→22:11)
[2018-08-11] MEDS: clonazePAM 1 MG TAB PO SCH ×2 (09:05→22:22)
[2018-08-11] MEDS: CITALOPRAM 10 MG TABLET PO SCH (09:05)
[2018-08-11] MEDS: CALCIUM CARB 500MG/VIT D 200 IU TAB PO SCH (09:05)
[2018-08-11] MEDS: FUROSEMIDE 20 MG TABLET PO SCH (09:05)
[2018-08-11] MEDS: ACETAMINOPHEN 500 MG TAB PO PRN (09:11)
--- NOTE | 2018-08-11 18:08 | P.PN ---
Subjective Date of Service: 08/11/18 Chief Complaint: Diarrhea Subjective: Improving Patient seen and examined at bedside. No family at bedside. Chart reviewed and case discussed with nursing staff. Overnight, blood pressures stabilized. Off of levaphed for over 24 hr. BP remains stable in ICU, now transferred to the floor. Only 1 episode of diarrhea, more formed now. Restlessness much improved. At the time of my exam, patient sleeping peacefully. Received 1 dose of IV Ativan overnight. No acute events noted overnight Central line in place Review of Systems 10-point ROS is otherwise unremarkable Physical Examination - Vital Signs Temperature: 97.6 F Blood Pressure: 126/59 Pulse: 79 Respirations: 18 Pulse Ox (%): 96 - Physical Exam General: Alert, In no apparent distress, Oriented x3 HEENT: Atraumatic, PERRLA, EOMI Neck: Supple, JVD not distended Respiratory: Clear to auscultation bilaterally, Normal air movement Cardiovascular: Regular rate/rhythm, Normal S1 S2 Gastrointestinal: Normal bowel sounds, No tenderness Musculoskeletal: No tenderness Integumentary: No rashes Neurological: Normal speech, Normal tone, Normal affect - Studies Microbiology Data (last 24 hrs): 08/06/18 14:05 Blood - Blood Aerobic Blood Culture - Final No growth in 5 days. 08/06/18 14:05 Blood - Blood Anaerobic Blood Culture - Final No growth in 5 days. 08/06/18 14:20 Blood - Blood Aerobic Blood Culture - Final No growth in 5 days. 08/06/18 14:20 Blood - Blood Anaerobic Blood Culture - Final No growth in 5 days. Assessment And Plan - Plan An 82-year-old female with: Hypotension stable Off of levophed now. Likely secondary to watery diarrhea along with C. diff infection No tachycardia. No fever. We will continue to monitor for developing signs of sepsis. Slowly restarted Lasix and now back down. We will continue to monitor blood pressures closely. [Despite fluid resuscitation, patient's blood pressure was not responding. Patient was transferred to the ICU for closer watch. She was started on Levophed to keep the map of 65. Unfortunately patient's IV access went bad, general surgery was consulted for central line placement, placed successfully and patient tolerated well. Blood pressure stabilized with Levophed. She was weaned off Levophed, broke pressures remained stable. She was then transferred to the floor.] Generalized abdominal pain secondary to colitis. Tolerating clear liquids, will continue. C. diff Pancolitis, [id number]. Continue PO vancomycin. Dr. Mata with General Surgery has been consulted, recommendations appreciated. No surgical intervention at this time. Restless legs syndrome. Much improved this morning. She did receive 1 dose of IV Ativan overnight. It seems that she is continuously moving. The worry is that she may pull out her central line. She is currently getting pramiprexole, gabapentin and clonipin. Although daughter states that she is close to baseline in regards to her restlessness. Close monitoring to make sure does not pull on central line. Trial of 1 time ativan, though will closely watch blood pressure. May increase neurontin dosage if no help. History of Alzheimer's dementia, early onset, without behavioral disturbance. History of cerebrovascular accident and transient ischemic attack, stable. We will hold any blood thinners for now in case of emergent surgical intervention required. Status post pacemaker, last interrogation was 3 months ago. The patient's Cardiology is in [facility]. DVT prophylaxis: On hold GI prophylaxis: None Diet: Clear liquids, advance as tolerated Disposition: Stable on the floor. Physical therapy consulted. Social work on board. She will need placement to a facility, this will likely happened Monday.
[2018-08-11] MEDS: TRAZODONE 50 MG TABLET PO SCH (22:11)
[2018-08-11] MEDS: GABAPENTIN 400 MG CAP PO SCH (22:12)
[2018-08-11] MEDS: ATORVASTATIN 40 MG TAB PO SCH (22:12)
[2018-08-11] MEDS: ASPIRIN 81 MG CHEWABLE TABLET PO SCH (22:12)
[2018-08-11] MEDS: AMLODIPINE 10 MG TAB PO SCH (22:13)
[2018-08-12] MEDS: METRONIDAZOLE 500mg IVPB 500 MG/100 ML BAG IV SCH ×3 (00:01→17:26)
[2018-08-12] MEDS: VANCOMYCIN ORAL SOLN 250 MG/5 ML OSYR PO SCH ×4 (05:59→17:53)
[2018-08-12] MEDS: LEVOTHYROXINE SOD 0.1 MG TAB PO SCH (05:59)
[2018-08-12] MEDS: PRAMIPEXOLE 0.25 MG TAB PO SCH (09:38)
[2018-08-12] MEDS: FUROSEMIDE 20 MG TABLET PO SCH (09:39)
[2018-08-12] MEDS: SPIRONOLACTONE 25 MG TABLET PO SCH (09:39)
[2018-08-12] MEDS: RAMIPRIL 5 MG CAP PO SCH (09:39)
[2018-08-12] MEDS: CARVEDILOL 3.125 MG TAB PO SCH ×2 (09:40→21:24)
[2018-08-12] MEDS: HYDROXYCHLOROQUINE 200MG TAB PO SCH ×2 (09:40→21:26)
[2018-08-12] MEDS: CALCIUM CARB 500MG/VIT D 200 IU TAB PO SCH (09:40)
[2018-08-12] MEDS: CITALOPRAM 10 MG TABLET PO SCH (09:40)
[2018-08-12] MEDS: MEMANTINE HCL 10 MG TABLET PO SCH ×2 (09:40→21:24)
[2018-08-12] MEDS: clonazePAM 1 MG TAB PO SCH (09:44)
[2018-08-12 12:11] LABS: Absolute Lymphocytes (CBC) 0.6 K/uL (0.7-4.9); Absolute Monocytes 1.8 K/uL (0.1-1.3); Absolute Neutrophil 13.1 K/uL (1.8-8.0); Basophils % 0.3 % (0-1.3); Eosinophils % 1.9 % (0-4.4); Hematocrit 32.1 % (36.0-45.0); Lymphocytes % 3.8 % (15.3-44.8); MPV 8.5 fL (7.6-11.3); Monocytes % 11.2 % (3.3-12.3); RBC Red Blood Cell Count 3.73 M/uL (3.86-4.86)
[2018-08-12 12:20] LABS: Potassium 3.7 mmol/L (3.5-5.1)
[2018-08-12 12:46] LABS: Blood Morphology Comment NOTED (NOT SEEN); Platelet Estimate ADEQ; Polychromasia 1+; Toxic Granulation 1+
[2018-08-12] MEDS: NA CHLORIDE 0.9% 1,000 ML IV SCH (13:00)
--- NOTE | 2018-08-12 15:33 | P.PN ---
Subjective Date of Service: 08/12/18 Chief Complaint: Diarrhea Subjective: Improving Patient seen and examined at bedside. No family at bedside. Chart reviewed and case discussed with nursing staff. Overnight, blood pressures stabilized. Off of levaphed for over 24 hr. BP remains stable on the floor overnight. Only 1 episode of diarrhea overnight. Per daughter, patient seems to be sleeping a lot more. Central line in place Review of Systems 10-point ROS is otherwise unremarkable Physical Examination - Vital Signs Temperature: 97.8 F Blood Pressure: 90/60 Pulse: 63 Respirations: 18 Pulse Ox (%): 95 - Physical Exam General: Alert, In no apparent distress, Oriented x3, Other (Sleepy) HEENT: Atraumatic, PERRLA, EOMI Neck: Supple, JVD not distended Respiratory: Clear to auscultation bilaterally, Normal air movement Cardiovascular: Regular rate/rhythm, Normal S1 S2 Gastrointestinal: Normal bowel sounds, No tenderness Musculoskeletal: No tenderness Integumentary: No rashes Neurological: Normal speech, Normal tone, Normal affect Lymphatics: No axilla or inguinal lymphadenopathy - Studies Microbiology Data (last 24 hrs): 08/06/18 14:05 Blood - Blood Aerobic Blood Culture - Final No growth in 5 days. 08/06/18 14:05 Blood - Blood Anaerobic Blood Culture - Final No growth in 5 days. 08/06/18 14:20 Blood - Blood Aerobic Blood Culture - Final No growth in 5 days. 08/06/18 14:20 Blood - Blood Anaerobic Blood Culture - Final No growth in 5 days. Medications List Reviewed: Yes Assessment And Plan - Plan An 82-year-old female with: Hypotension stable Off of levophed now. Likely secondary to watery diarrhea along with C. diff infection No tachycardia. No fever. We will continue to monitor for developing signs of sepsis. Hold Lasix. We will continue to monitor blood pressures closely. [Despite fluid resuscitation, patient's blood pressure was not responding. Patient was transferred to the ICU for closer watch. She was started on Levophed to keep the map of 65. Unfortunately patient's IV access went bad, general surgery was consulted for central line placement, placed successfully and patient tolerated well. Blood pressure stabilized with Levophed. She was weaned off Levophed, broke pressures remained stable. She was then transferred to the floor.] Generalized abdominal pain secondary to colitis. Tolerating clear liquids, will continue. C. diff Pancolitis, [id number]. Continue PO vancomycin. Dr. Mata with General Surgery has been consulted, recommendations appreciated. No surgical intervention at this time. Restless legs syndrome. Much improved this morning. She did receive 1 dose of IV Ativan overnight. It seems that she is continuously moving. The worry is that she may pull out her central line. She is currently getting pramiprexole, gabapentin and clonipin. Although daughter states that she is close to baseline in regards to her restlessness. Close monitoring to make sure does not pull on central line. Trial of 1 time ativan, though will closely watch blood pressure. May increase neurontin dosage if no help. History of Alzheimer's dementia, early onset, without behavioral disturbance. History of cerebrovascular accident and transient ischemic attack, stable. We will hold any blood thinners for now in case of emergent surgical intervention required. Status post pacemaker, last interrogation was 3 months ago. The patient's Cardiology is in [facility]. DVT prophylaxis: On hold GI prophylaxis: None Diet: Clear liquids, advance as tolerated Disposition: Stable on the floor. Physical therapy consulted. Social work on board. She will need placement to a facility, this will likely happened Monday.
[2018-08-12] MEDS ORDERED: POTASSIUM 25 MEQ EFFERV TAB PO ONE (16:31)
[2018-08-12] MEDS: AMLODIPINE 10 MG TAB PO SCH (21:23)
[2018-08-12] MEDS: ATORVASTATIN 40 MG TAB PO SCH (21:24)
[2018-08-12] MEDS: ASPIRIN 81 MG CHEWABLE TABLET PO SCH (21:24)
[2018-08-12] MEDS: GABAPENTIN 400 MG CAP PO SCH (21:24)
[2018-08-12] MEDS: TRAZODONE 50 MG TABLET PO SCH (21:24)
[2018-08-13] MEDS: METRONIDAZOLE 500mg IVPB 500 MG/100 ML BAG IV SCH (00:35)
[2018-08-13] MEDS: VANCOMYCIN ORAL SOLN 250 MG/5 ML OSYR PO SCH ×5 (00:35→23:47)
[2018-08-13] MEDS: NA CHLORIDE 0.9% 1,000 ML IV SCH (01:48)
[2018-08-13 04:51] LABS: Absolute Lymphocytes (CBC) 0.7 K/uL (0.7-4.9); Absolute Monocytes 2.3 K/uL (0.1-1.3); Absolute Neutrophil 15.4 K/uL (1.8-8.0); Basophils % 0.3 % (0-1.3); Eosinophils % 2.5 % (0-4.4); Hematocrit 33.7 % (36.0-45.0); Lymphocytes % 3.9 % (15.3-44.8); MPV 8.9 fL (7.6-11.3); Monocytes % 12.3 % (3.3-12.3); RBC Red Blood Cell Count 3.89 M/uL (3.86-4.86)
[2018-08-13 05:00] LABS: BUN Blood Urea Nitrogen 28 mg/dL (7-18); Bicarbonate 22 mmol/L (21-32); Glucose Level 97 mg/dL (74-106); Potassium 3.6 mmol/L (3.5-5.1); Sodium Level 140 mmol/L (136-145)
[2018-08-13] MEDS: LEVOTHYROXINE SOD 0.1 MG TAB PO SCH (05:45)
[2018-08-13] MEDS ORDERED: KCL 20 MEQ/100 mL IVPB 20 MEQ/100 ML BAG IV SCH (06:00)
[2018-08-13] MEDS: CARVEDILOL 3.125 MG TAB PO SCH ×3 (09:00→20:43)
[2018-08-13] MEDS: SPIRONOLACTONE 25 MG TABLET PO SCH ×2 (09:00→09:12)
[2018-08-13] MEDS: PRAMIPEXOLE 0.25 MG TAB PO SCH (09:12)
[2018-08-13] MEDS: FUROSEMIDE 20 MG TABLET PO SCH (09:13)
[2018-08-13] MEDS: MEMANTINE HCL 10 MG TABLET PO SCH ×2 (09:13→20:42)
[2018-08-13] MEDS: HYDROXYCHLOROQUINE 200MG TAB PO SCH ×2 (09:14→20:41)
[2018-08-13] MEDS: RAMIPRIL 5 MG CAP PO SCH (09:14)
[2018-08-13] MEDS: CITALOPRAM 10 MG TABLET PO SCH (09:14)
[2018-08-13] MEDS: CALCIUM CARB 500MG/VIT D 200 IU TAB PO SCH (09:14)
[2018-08-13] MEDS ORDERED: FUROSEMIDE 20 MG/ 2ML VIAL IV ONE (09:31)
--- NOTE | 2018-08-13 11:30 | RAD REPORT ---
EXAM DESCRIPTION: RAD - Chest Single View - 08/13/2018 11:18 am CLINICAL HISTORY: SOB Chest pain. COMPARISON: Chest Single View dated 08/10/2018; Chest Single View dated 05/15/2018; ABDOMEN ACUTE SER IES dated 03/13/2013; CHEST SINGLE VIEW dated 07/22/2011; Abdomen Pelvis W Contrast dated 08/06/2018 FINDINGS: Portable technique limits examination quality. Elevated right hemidiaphragmatic leaflet again noted, unchanged. The lungs appear grossly clear of in filtrate. Haziness of the right lung base remain stable. The heart is moderately enlarged with a dual lead pacer device present. No displaced fractures. IMPRESSION: No significant change since 08/10/2018 prior study.
--- NOTE | 2018-08-13 16:04 | P.PN ---
Subjective Date of Service: 08/13/18 Chief Complaint: Diarrhea Patient seen and examined at bedside. No family at bedside. Chart reviewed and case discussed with nursing staff. Blood pressure stable overnight. Only 1 episode of diarrhea overnight. Patient more awake and alert this morning. Complaining of all shortness of breath. Satting well at room air Central line in place Review of Systems 10-point ROS is otherwise unremarkable Physical Examination - Vital Signs Temperature: 98.3 F Blood Pressure: 115/56 Pulse: 81 Respirations: 18 Pulse Ox (%): 94 - Physical Exam General: Alert, Oriented x3, Mild distress HEENT: Atraumatic, PERRLA, EOMI Neck: Supple, JVD not distended Respiratory: Clear to auscultation bilaterally, Normal air movement Cardiovascular: Regular rate/rhythm, Normal S1 S2 Gastrointestinal: Normal bowel sounds, No tenderness Musculoskeletal: No tenderness Integumentary: No rashes Neurological: Normal speech, Normal tone, Normal affect Lymphatics: No axilla or inguinal lymphadenopathy - Studies Medications List Reviewed: Yes Assessment And Plan - Plan An 82-year-old female with: Hypotension stable Off of levophed now. Likely secondary to watery diarrhea along with C. diff infection No tachycardia. No fever. We will continue to monitor for developing signs of sepsis. Hold Lasix. We will continue to monitor blood pressures closely. [Despite fluid resuscitation, patient's blood pressure was not responding. Patient was transferred to the ICU for closer watch. She was started on Levophed to keep the map of 65. Unfortunately patient's IV access went bad, general surgery was consulted for central line placement, placed successfully and patient tolerated well. Blood pressure stabilized with Levophed. She was weaned off Levophed, broke pressures remained stable. She was then transferred to the floor.] Generalized abdominal pain secondary to colitis. Tolerating clear liquids, will continue. C. diff Pancolitis, [id number]. Continue PO vancomycin. Dr. Mata with General Surgery has been consulted, recommendations appreciated. No surgical intervention at this time. Restless legs syndrome. Much improved this morning. She did receive 1 dose of IV Ativan overnight. It seems that she is continuously moving. The worry is that she may pull out her central line. She is currently getting pramiprexole, gabapentin and clonipin. Although daughter states that she is close to baseline in regards to her restlessness. Close monitoring to make sure does not pull on central line. Trial of 1 time ativan, though will closely watch blood pressure. May increase neurontin dosage if no help. History of Alzheimer's dementia, early onset, without behavioral disturbance. History of cerebrovascular accident and transient ischemic attack, stable. We will hold any blood thinners for now in case of emergent surgical intervention required. Status post pacemaker, last interrogation was 3 months ago. The patient's Cardiology is in [facility]. Shortness of breath Possibly secondary to floor overload. Will discontinue IV fluids, 1 time IV Lasix. Chest x-ray ordered, pending Will also trial with breathing treatments to see if that will help patient. DVT prophylaxis: On hold GI prophylaxis: None Diet: Clear liquids, advance as tolerated Disposition: Stable on the floor. Physical therapy consulted. Social work on board. She will need placement to a facility, this will likely happened Monday.
[2018-08-13] MEDS: ALBUTEROL 2.5 MG/3 ML NEB SOL NEB PRN (17:03)
[2018-08-13] MEDS: TRAZODONE 50 MG TABLET PO SCH (20:41)
[2018-08-13] MEDS: ATORVASTATIN 40 MG TAB PO SCH (20:42)
[2018-08-13] MEDS: GABAPENTIN 400 MG CAP PO SCH (20:42)
[2018-08-13] MEDS: ASPIRIN 81 MG CHEWABLE TABLET PO SCH (20:42)
[2018-08-13] MEDS: AMLODIPINE 10 MG TAB PO SCH (20:43)
[2018-08-14] MEDS: VANCOMYCIN ORAL SOLN 250 MG/5 ML OSYR PO SCH ×3 (05:09→17:01)
[2018-08-14] MEDS: LEVOTHYROXINE SOD 0.1 MG TAB PO SCH (05:09)
[2018-08-14 05:21] LABS: Absolute Lymphocytes (CBC) 0.8 K/uL (0.7-4.9); Absolute Monocytes 2.2 K/uL (0.1-1.3); Absolute Neutrophil 18.1 K/uL (1.8-8.0); Basophils % 0.2 % (0-1.3); Eosinophils % 0.6 % (0-4.4); Lymphocytes % 3.7 % (15.3-44.8); MPV 8.9 fL (7.6-11.3); Monocytes % 10.2 % (3.3-12.3); RBC Red Blood Cell Count 3.88 M/uL (3.86-4.86)
[2018-08-14 05:38] LABS: BUN Blood Urea Nitrogen 20 mg/dL (7-18); Bicarbonate 23 mmol/L (21-32); Glucose Level 100 mg/dL (74-106); Potassium 3.4 mmol/L (3.5-5.1); Sodium Level 141 mmol/L (136-145)
[2018-08-14 08:17] LABS: Blood Morphology Comment NOT SEEN (NOT SEEN); Platelet Estimate ADEQ
[2018-08-14] MEDS ORDERED: POTASSIUM CL SA 10 MEQ TAB PO ONE (09:00)
[2018-08-14] MEDS: HYDROXYCHLOROQUINE 200MG TAB PO SCH ×2 (09:59→22:04)
[2018-08-14] MEDS: SPIRONOLACTONE 25 MG TABLET PO SCH (10:00)
[2018-08-14] MEDS: RAMIPRIL 5 MG CAP PO SCH (10:00)
[2018-08-14] MEDS: PRAMIPEXOLE 0.25 MG TAB PO SCH (10:01)
[2018-08-14] MEDS: CALCIUM CARB 500MG/VIT D 200 IU TAB PO SCH (10:01)
[2018-08-14] MEDS: CARVEDILOL 3.125 MG TAB PO SCH ×2 (10:01→22:07)
[2018-08-14] MEDS: FUROSEMIDE 20 MG TABLET PO SCH (10:01)
[2018-08-14] MEDS: MEMANTINE HCL 10 MG TABLET PO SCH ×2 (10:01→22:03)
[2018-08-14] MEDS: CITALOPRAM 10 MG TABLET PO SCH (10:01)
[2018-08-14] MEDS: ALBUTEROL 2.5 MG/3 ML NEB SOL NEB PRN (14:08)
--- NOTE | 2018-08-14 19:01 | PN ---
Date of Progress Note: 08/14/2018 Subjective: The patient is seen and examined. Chart reviewed and case discussed with RN. The patie nt states that her diarrhea is improving. Frequency has slowed down, however, still not as formed. Medications: List reviewed. Code Status: Full. Physical Examination: Vital Signs: Temperature 97.8, heart rate 73, blood pressure 122/62, respirations 18, O2 94% on room air. General: Awake, alert and oriented x3. Elderly female, in some mild distress. CV: S1, S2. Regular rate and rhythm. Peripheral pulse is present. Respiratory: Moving air well bilaterally. No wheezing. Gastrointestinal: Abdomen is soft. Mild tenderness to palpation. No rebound or guarding. Extremities: No clubbing, cyanosis, or edema. Neurologic: Nonfocal. Laboratory Data: Sodium 141, potassium 3.4, chloride 109, CO2 23, BUN 20, creatinine 0.54, glucose 1 00, calcium 7.1. Procalcitonin 0.16. WBC 21.3, H and H 11.3 and 33, platelets 197, neutrophils 85%, 1% bands. Blood cultures, no growth to date. Repeat blood cultures also did not show any growth. Urine culture showed mixed ella. C. diff assay is positive. Stool culture showing no Salmonella, S higella, or Campylobacter. Assessment And Plan: An 82-year-old female with: 1.Acute hypotension, now off Levophed, likely secondary to dehydration from C. diff infection diarrh ea. Procalcitonin was 0.16. WBC count is still elevated. We will monitor for signs of sepsis. Blo od pressure medications on hold. 2.Generalized abdominal pains secondary to colitis. Continue clear liquids. We will advance as aylin erated. Discussed with surgery. 3.Clostridium difficile pancolitis, mild to moderate. Continue p.o. vancomycin. Appreciate Dr. Mag mejía's input. No surgical intervention at this time. 4.Restless legs syndrome. We will resume pramipexole. We will need to monitor her for agitation an d confusion. The patient is pulling on her central line. 5.History of Alzheimer's dementia, early onset without behavioral disturbance. 6.History of cerebrovascular accident and transient ischemic attack, stable. Blood thinners on hold due to possible surgical intervention. 7.Status post pacemaker interrogated 3 months ago by Cardiology in [place]. 8.Shortness of breath, improved, likely due to fluid overload. Chest x-ray personally reviewed, jah ws elevated right hemidiaphragmatic leaflet again noted unchanged. Lungs appeared grossly clear of i nfiltrate, haziness of the right lung base remained stable. Heart moderately enlarged dual. Pacemak er leads present. 9.Deep vein thrombosis prophylaxis, no chemical anticoagulation due to possible surgery. Diet advan ce as tolerated. Plan likely discharge to intermediate facility once more clinically improved. W BC count elevated today. Procalcitonin is borderline at 0.16. 10.Hypokalemia. We will replace and monitor. /MODChance Voice ID: [id number] Report ID: [id number]
[2018-08-14] MEDS: TRAZODONE 50 MG TABLET PO SCH (22:03)
[2018-08-14] MEDS: AMLODIPINE 10 MG TAB PO SCH (22:04)
[2018-08-14] MEDS: GABAPENTIN 400 MG CAP PO SCH (22:05)
[2018-08-14] MEDS: ASPIRIN 81 MG CHEWABLE TABLET PO SCH (22:06)
[2018-08-14] MEDS: ATORVASTATIN 40 MG TAB PO SCH (22:06)
[2018-08-14] MEDS: ROPINIROLE HCL 1 MG TAB PO SCH (22:06)
[2018-08-15] MEDS: VANCOMYCIN ORAL SOLN 250 MG/5 ML OSYR PO SCH ×4 (00:14→18:12)
[2018-08-15] MEDS: LEVOTHYROXINE SOD 0.1 MG TAB PO SCH (05:00)
[2018-08-15 05:17] LABS: Absolute Lymphocytes (CBC) 1.1 K/uL (0.7-4.9); Absolute Monocytes 1.4 K/uL (0.1-1.3); Basophils % 0.3 % (0-1.3); Eosinophils % 2.2 % (0-4.4); Hematocrit 31.5 % (36.0-45.0); Lymphocytes % 4.9 % (15.3-44.8); MPV 8.9 fL (7.6-11.3); Monocytes % 6.2 % (3.3-12.3); RBC Red Blood Cell Count 3.63 M/uL (3.86-4.86)
[2018-08-15 05:32] LABS: BUN Blood Urea Nitrogen 18 mg/dL (7-18); Bicarbonate 24 mmol/L (21-32); Glucose Level 96 mg/dL (74-106); Potassium 3.7 mmol/L (3.5-5.1); Sodium Level 140 mmol/L (136-145)
[2018-08-15] MEDS ORDERED: POTASSIUM CL SA 10 MEQ TAB PO ONE (06:00)
[2018-08-15] MEDS: HYDROXYCHLOROQUINE 200MG TAB PO SCH ×2 (09:00→20:31)
[2018-08-15] MEDS: FUROSEMIDE 20 MG TABLET PO SCH (10:41)
[2018-08-15] MEDS: SPIRONOLACTONE 25 MG TABLET PO SCH (10:41)
[2018-08-15] MEDS: ROPINIROLE HCL 1 MG TAB PO SCH ×2 (10:42→20:31)
[2018-08-15] MEDS: CARVEDILOL 3.125 MG TAB PO SCH ×2 (10:42→20:30)
[2018-08-15] MEDS: PRAMIPEXOLE 0.25 MG TAB PO SCH (10:42)
[2018-08-15] MEDS: CITALOPRAM 10 MG TABLET PO SCH (10:42)
[2018-08-15] MEDS: RAMIPRIL 5 MG CAP PO SCH (10:42)
[2018-08-15] MEDS: MEMANTINE HCL 10 MG TABLET PO SCH ×2 (10:43→20:30)
[2018-08-15] MEDS: CALCIUM CARB 500MG/VIT D 200 IU TAB PO SCH (10:43)
[2018-08-15] MEDS: ALBUTEROL 2.5 MG/3 ML NEB SOL NEB PRN (16:20)
[2018-08-15 17:56] VITALS: O2SAT 98
[2018-08-15] MEDS: AMLODIPINE 10 MG TAB PO SCH (20:30)
[2018-08-15] MEDS: GABAPENTIN 400 MG CAP PO SCH (20:30)
[2018-08-15] MEDS: TRAZODONE 50 MG TABLET PO SCH (20:31)
[2018-08-15] MEDS: ATORVASTATIN 40 MG TAB PO SCH (20:31)
[2018-08-15 20:32] VITALS: BP 142/68
[2018-08-15] MEDS: ASPIRIN 81 MG CHEWABLE TABLET PO SCH (20:32)
[2018-08-15] MEDS ORDERED: ENSURE CLEAR 200 ML CAN PO SCH (21:00)
[2018-08-15 21:59] VITALS: TEMP 97.2
--- NOTE | 2018-08-15 22:11 | DS ---
Consultants: Hugo Man M.D. and Dr. Apollo Mata M.D. with General Surgery. Procedures: On 08/08/2018, right femoral central line placement. Admitting Diagnoses: 1.Generalized abdominal pain. 2.Pancolitis, [id number]. 3.Hypotension. 4.Restless legs syndrome. 5.History of Alzheimer's dementia, early onset without behavioral disturbance. 6.History of CVA and TIA. 7.Status post pacemaker. Discharge Diagnoses: 1.Acute hypotension off pressors secondary to C. diff, diarrhea. 2.Generalized abdominal pain secondary to colitis, resolved. 3.C. diff pancolitis, [id number], on p.o. vancomycin, improving. 4.Restless legs syndrome, on pramipexole. 5.History of Alzheimer's dementia, early onset without behavioral disturbance. 6.History of CVA and TIAs. 7.Status post pacemaker recently interrogated. 8.Shortness of breath, resolved. 9.Hypokalemia, corrected. Hospital Course: The patient is an 82-year-old female, who was admitted to the hospital for abdomina l pain. She was found to have pancolitis. White count was 23,000. Her workup revealed C. diff coli tis. Antibiotics were adjusted. The patient did well overall. She did need [facility] and be started on pressors due to hypotension, however, improved. The patient was seen by Dr. Mata with General Surgery. I did not recommend any surgical intervention at that time. The patie nt did require central line placement by Dr. Man. Blood culture showed no growth on 4 separate o ccasions. Her stool cultures did not show any Salmonella, Shigella, or Campylobacter. Her urine cul ture showed mixed ella. Her white count initially improved, however, spiked back up clinically. Ho wever, she was significantly improved. She did not have any further fevers, was no longer hypotensiv e, was off pressors. She did not have any signs of sepsis. Her procalcitonin was 0.16. Lactate was also normal. The patient was then referred to half-way facility, where she will finish off c ourse of p.o. vancomycin for C. diff. She will need to be on isolation.. Followup: Follow up with primary care physician in 1 week. Establish care with GI in 2 weeks. Retu rn to ER for worsening condition. Have a repeat CBC in 2-3 days. Diet: GI soft diet. Activity: As tolerated. Medications: As per medication reconciliation list. Physical Examination: General: Awake, alert, and oriented, no acute distress. Elderly female, obese, BMI 33. CV: S1, S2. Regular rate and rhythm. No murmurs. Respiratory: Moving air well bilaterally. No wheezing. Gastrointestinal: Abdomen is soft, nontende r, and nondistended. Positive bowel sounds. Extremities: No clubbing, cyanosis, or edema. Neurologic: Nonfocal. Total time spent discharging the patient was 35 minutes. /MODChance Voice ID: [id number] Report ID: [id number]
--- NOTE | 2018-09-06 19:57 | CON ---
Date of Consultation: 08/08/2018 Brief History Of Present Illness: The patient is an 82-year-old female with past medical history of restless legs syndrome, dementia, hypertension, status post pacemaker, comes in with abdominal pain o f 3-day duration on 08/06. She had multiple medical problems and required central venous access for antibiotics as well as difficult IV access. As such, they consulted me to place a temporary central venous catheter into this patient. Past Medical History: Significant for hypertension, restless legs syndrome, dementia, history of CVA , TIA. Past Surgical History: Pacemaker, appendectomy, foot surgery, hernia repair. Social History: Negative for alcohol, tobacco, or recreational drug use. Family was at the bedside who is her medical power of sports attorney. Allergies: CEPHALEXIN, EVISTA, NIFEDIPINE, METHYLPREDNISOLONE, DIPHENHYDRAMINE WELL CALCITONIN . SEASONAL ALLERGIES. Review of Systems: Other than HPI, denies. Physical Examination: Vital Signs: At the time of my examination, her vital signs were stable. General: She is awake, alert, oriented. Psychiatric: She is appropriate and conversive. HEENT: She is normocephalic. Her sclerae are anicteric. Chest: Normal expansion and excursion. Cardiovascular: Good pulses in all 4 extremities. SKIN: Warm and dry. Laboratory Exam: Revealed a white blood cell count of 24,000, hemoglobin is 11.1, hematocrit ___, neutrophils are 82%, platelet count 143. Her sodium was 140, potassium 3.6, chloride 109, carbo n dioxide 20, BUN 31, creatinine 0.9, glucose is 117, calcium 6.7, magnesium 1.7. She had an abdomin opelvic CT performed on 08/06. Assessment And Plan: This is an 82-year-old female who has multiple medical problems, now in need of central venous access for antibiotics as well as medications. I have explained the risks, benefits, and alternatives to patient and her family and medical power of sports attorney, including but not limited to injury to vital structures, bleeding, infection, damage to surrounding tissues, need for further o peration and procedures. The patient agreed to proceed as indicated. ADAN/JOSE Voice ID: [id number] Report ID: [id number]
== END 2018-08-15 22:52 | DRG 371 ==
LOC: ER 13:50 → ERHOLD 17:35 → 4TH 19:42 → 3RD-ICU 08-08 13:44 → 2ND 08-11 13:30
PROVIDERS: ADMIT Family Medicine; ATTEND Family Medicine
PROC: 06HM33Z Insertion of Infusion Device into Right Femoral Vein, Percutaneous Approach (ICD-10-PCS; principal; 2018-08-08)
DX: A04.72 Enterocolitis due to Clostridium difficile, not specified as recurrent (principal); R57.1 Hypovolemic shock; G25.81 Restless legs syndrome; G30.0 Alzheimer's disease with early onset; F02.80 Dementia in other diseases classified elsewhere, unspecified severity, without behavioral disturbance, psychotic disturbance, mood disturbance, and anxiety; Z86.73 Personal history of transient ischemic attack (TIA), and cerebral infarction without residual deficits; Z95.0 Presence of cardiac pacemaker; E87.6 Hypokalemia; I10 Essential (primary) hypertension
CPT/HCPCS: 36415; 71045; 74177; 80048; 80053; 80076; 81003; 81015; 82962; 83605; 83690; 83735; 84145; 85025; 87040; 87045; 87046; 87086; 87088; 87493; 89055; 93005; 94640; 94760; 96361; 96365; 96368; 97110; 97112; 97116; 97162; 97530; 99285; J0610; J0744; J1940; J2405; J3475; J7030; J7060

== ENCOUNTER 2021-01-15 09:50 | Emergency (ER) | payer OTHER, BC ==
--- OUTSIDE RECORDS SUMMARY | 2021-01-15 09:54 | XMS REPORT | Continuity of Care Document ---
:1935 Author Organization [facility] t Address [address] [place] [address] [address] [place] [address] Care Team Providers Name Role Phone Elian MARTIN, Mayelin. Primary Care Physician Pawan EVANGELISTA Attending Clinician Unavailable Ginette DOMINGUEZ Attending Clinician Unavailable Mag Ricks DO Attending Clinician Phil MARTIN, Kami Cote Attending Clinician Darío Novak MD Attending Clinician Nitin MARTIN Attending Clinician MD KAMI VILLARREAL Attending Clinician Unavailable Kenyetta Aleman MD Attending Clinician Stacie Plummer MD Attending Clinician Rodriguez MARTIN Attending Clinician All Attending Clinician Unavailable Brent DOMINGUEZ Attending Clinician Unavailable Ryder Parkinson MD Attending Clinician Mariano Thurman MD Attending Clinician Smita MARTIN, TLauryn Attending Clinician MD Kurtis LUNDBERG. Attending Clinician Unavailable Natalia Attending Clinician Unavailable TANVIR Attending Clinician Unavailable MD MICHAEL Attending Clinician Unavailable ELAYNE Attending Clinician Unavailable PHIL Admitting Clinician Unavailable MD KAMI VILLARREAL Admitting Clinician Unavailable ALISTAIR Admitting Clinician Unavailable MD Mis THURMAN Admitting Clinician Unavailable MICHAEL Admitting Clinician Unavailable MD MICHAEL Admitting Clinician Unavailable HUST Admitting Clinician Unavailable VALLE Admitting Clinician Unavailable Payers Payer Name Policy Type Policy Effective Date Expiration Date Sour ce Number MEDICAREMEDICARE PART [id number] 1999 Or thodist A AND 00:00:00 [facility] [id number]- [place] BCBSBCBS OUT OF xxxxxxxxxxx 2016 Methodis t [id number] 2000 00:00:00 [facility] pital /05/2016-PresentPPO Problems Condition Condition Condition Status Onset Resolution Last Treating Co mments Source Name Details Category Date Date Treatment Clinician Date Gait Gait Disease Active Methodi disturbanc disturbanc 01-04 st e e 00:00: Hospita 00 l 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 02-02 with with 00:00: Hospita exacerbati exacerbati 00 l on on Angio-charley Angio-charley Disease Active 2019-0 M ethodi a a 01-07 st 00:00: Hospita 00 l Angio-charley Angio-charley Disease Active 2020-0 M ethodi a, initial a, initial 01-06 encounter encounter 00:00: Hosp rachel 00 l Angioedema Angioedema Disease Active 2020-0 M ethodi due to due to 01-06 angiotensi angiotensi 00:00: Ho spita n n 00 l converting converting enzyme enzyme inhibitor inhibitor (FEDERICA-I) (FEDERICA-I) Acute Acute Disease Active 2018-05 Methodi angina angina 2-16 st 00:00: Hospita 00 l Myoclonus Myoclonus Disease Active 2015-[address] 00:00: Hospita 00 l TIA TIA Disease Active 2015-05 Methodi (transient (transient [address] st ischemic ischemic 00:00: Hospit a attack) attack) 00 l Transient Transient Disease Active 2015-05 Met hodi cerebral cerebral [address] st ischemia ischemia 00:00: Hospit a 00 l Dementia Dementia Disease Active 2015-[address] 00:00: Hospita 00 l Aphasia Aphasia Disease Active 2015-[address] 00:00: Hospita 00 l Bilateral Bilateral Disease Active Met hodi Breast Breast 408 st lump lump 00:00: Hospita 00 l Spasm Spasm Disease Active Methodi 09-03 00:00: Hospita 00 l Acute Acute Disease Active Methodi bronchitis bronchitis 09-03 00:00: Hospita 00 l Hypothyroi Hypothyroi Disease Active M ethodi dism dism 09-03 00:00: Hospita 00 l Hyperlipid Hyperlipid Disease Active M ethodi emia emia 09-03 00:00: Hospita 00 l Hypokalemi Hypokalemi Disease Active M ethodi a a 09-03 00:00: Hospita 00 l Insomnia Insomnia Disease Active Metho di 09-03 00:00: Hospita 00 l Restless Restless Disease Active Metho di legs legs 09-03 00:00: Hospita 00 l Discharge Discharge Disease Active Met hodi of eye of eye 09-03 00:00: Hospita 00 l Essential Essential Disease Active Met hodi hypertensi hypertensi 09-03 on on 00:00: Hospita 00 l Dizziness Dizziness Disease Active Met hodi 09-03 00:00: Hospita 00 l Fatigue Fatigue Disease Active Methodi 09-03 00:00: Hospita 00 l Vomiting Vomiting Disease Active Metho di 09-03 00:00: Hospita 00 l Inguinal Inguinal Disease Active Metho di pain pain 09-03 00:00: Hospita 00 l Abnormal Abnormal Disease Active Metho di urine odor urine odor 09-03 00:00: Hospita 00 l Abnormal Abnormal Disease Active Metho di mammograph mammograph 09-03 y y 00:00: Hospita 00 l Allergies, Adverse Reactions, Alerts Allergy Allergy Status Severity Reaction(s) Onset Inactive Treating Comm ents Source Name Type Date Date Clinician Amoxicil Propensi Active Diarrhea Patient Met hodi branden-Pot ty to 01-03 st Clavulan adverse 00:00: c-diff Hospita ate reaction 00 and l s to colitis drug Ramipril Propensi Active Swelling Meth abdiel ty to 01-07 st adverse 00:00: Hospita reaction 00 l s to drug [place] Propensi Active 2015-05 "citrus Methodi And ty to 06-08 fruits" st Derivati adverse 00:00: Hospita ves reaction 00 l s to drug Other Propensi Active 2015-05 "bee Methodi ty to 06-08 stings" st adverse 00:00: "xanodyne Hospit a reaction 00 " l s Calciton Propensi Active Method i in ty to 09-03 st adverse 00:00: Hospita reaction 00 l s to drug Cephalex Propensi Active Method i in ty to 09-03 st adverse 00:00: Hospita reaction 00 l s to drug Diphenhy Propensi Active Other (See "crawl Me thodi dramine ty to Comments) 09-03 adverse 00:00: plata" Hospita reaction 00 l s to drug Methylpr Propensi Active "shaking" Met hodi ednisolo ty to 09-03 ne adverse 00:00: Hospita reaction 00 l s to drug Nifedipi Propensi Active Method i ne ty to 09-03 adverse 00:00: Hospita reaction 00 l s to drug Raloxife Propensi Active Method i ne ty to 09-03 st adverse 00:00: Hospita reaction 00 l s to drug Ranitidi Propensi Active Method i ne ty to 09-03 adverse 00:00: Hospita reaction 00 l s to drug Family History Family Member Diagnosis Comments Start Date Stop Date Source Natural brother Heart attack [facility] Natural mother Lymphoma [facility] Other Heart disease [facility] ospital Natural sister Stroke [facility] Social History Social Habit Start Date Stop Date Quantity Comments Source Exposure to Not sure [facility]uc[facility]ism SARS-CoV-2 [facility] (event) Tobacco use and 2021-01-06 2021-01-06 Never used [facility]ism exposure 00:00:00 00:00:00 Hospital Alcohol intake 2021-01-06 2021-01-06 Current [facility]uc[facility]ism 00:00:00 00:00:00 non-drinker of Hospital alcohol (finding) Sex Assigned At [birth year] [facility] 00:00:00 00:00:00 Hospital Smoking Status Start Date Stop Date Source Never smoker [facility] Hospit al Medications Ordered Filled Start Stop Current Ordering Indication Dosage Frequency Signature Comments Components Source Medication Medication Date Date Medication? Clinician (SIG) Name Name isosorbide 2020- No 30mg Q.5D Take 30 mg Methodi mononitrate 01-08 by mouth 2 s t (IMDUR) 30 19:36: 00:00 (two) Hospi ta MG 24 hr 44 :00 times a l tablet day. pramipexole 2020- No 1mg Q.5D Take 1 mg Methodi (MIRAPEX) 1 01-08 by mouth 2 s t MG tablet 19:36: 00:00 (two) Hospit a 44 :00 times a l day. traZODone No 50mg QD Take 50 mg M ethodi (DESYREL) 01-[address] 50 MG 19:36: 00:00 nightly. Hospita tablet 44 :00 l dextrometho 2020- No 10mL Q.25D Take 10 mL Methodi rphan-guaif 01-08 by mouth 4 s t enesin 19:36: 00:00 (four) Hospita (ROBITUSSIN 44 :00 times a l -DM) 10-100 day as mg/5 mL needed for liquid cough. carvediloL No 6.25mg Q.5D Take 6.25 Methodi (COREG) 01-[address] 6.25 MG 19:36: 00:00 mouth 2 Hospit a tablet 44 :00 (two) l times a day with meals. furosemide No 40mg Q.5D Take 40 mg Methodi (LASIX) 40 01-[address] mg tablet 19:36: 00:00 (two) Hospit a 44 :00 times a l day. hydrALAZINE 2020- No 50mg Q.43320247 Take 50 mg Methodi (APRESOLINE 01-08 [id number] by mouth 3 st ) 50 MG 19:36: 00:00 3D (three) Hospit a tablet 44 :00 times a l day. SPIRONOLACT 2020- No 25mg Q.5D Take 25 mg Methodi ONE ORAL 8-13 08-[address] 19:36: 00:00 (two) Hospita 44 :00 times a l day. pantoprazol Yes 40mg QD Take 40 mg Methodi e 8-[address] (PROTONIX) 19:36: daily. Hospi ta 40 MG EC 38 l tablet ipratropium Yes 1{vial} Q6H Inhale 1 Methodi /albuterol 8-[address] sulfate 19:36: 6 (six) Hospita (IPRATROPIU 38 hours as l M-ALBUTEROL needed. INHL) nitroglycer Yes .4mg Place 0.4 M ethodi in 8-[address] (NITROSTAT) 19:36: the tongue Hospita 0.4 MG SL 38 every 5 l tablet (five) minutes as needed for chest pain. arformotero Yes 15ug QD Take 15 Met hodi L (BROVANA) 8-[address] 15 mcg/2 mL 19:36: nebulizati Hospita solution 38 on once l for daily. nebulizatio n levothyroxi Yes 112ug QD Take 112 M ethodi ne 8-[address] (SYNTHROID) 19:36: mouth Hospi ta 112 mcg 38 daily. l tablet polyethylen Yes 17g Q24H Take 17 g M ethodi e glycol 8-[address] (MIRALAX) 19:36: daily as Hosp rachel 17 gram 38 needed. l packet clonIDINE Yes .1mg Take 0.1 Meth abdiel (CATAPRES) 8-[address] 0.1 MG 19:36: mouth as Hospita tablet 38 needed for l high blood pressure (165). leflunomide Yes 10mg QD Take 10 mg Methodi (ARAVA) 10 8-[address] MG tablet 19:36: daily. Hospit a 38 l aspirin 81 0 Yes 81mg QD Chew 81 mg M ethodi mg chewable 8-[address] tablet 19:36: Hospita 38 l cevimeline Yes 30mg QD Take 30 mg M ethodi (EVOXAC) 30 8-[address] mg capsule 19:36: daily. Hospi ta 38 l clonAZEPAM 0 Yes 1mg Q.5D Take 1 mg Me thodi (KlonoPIN) 8-[address] 1 MG tablet 19:36: (two) Hospi ta 38 times a l day. cyanocobala 0 Yes 1000ug QD Take 1,000 Methodi min 8-[address] (VITAMIN 19:36: mouth Hospita B-12) 1000 38 daily. l MCG tablet coenzyme 0 Yes 100mg QD Take 100 Meth abdiel Q10 8-[address] (COQ-10) 19:36: mouth Hospita 100 mg 38 daily. l capsule cholecalcif Yes 1000U QD Take 1,000 Methodi winsome, 8-[address] vitamin D3, 19:36: mouth Hospi ta 1,000 unit 38 daily. l tablet atorvastati Yes 40mg QD Take 40 mg Methodi n (LIPITOR) 8-[address] 40 mg 19:36: daily. Hospita tablet 38 l galantamine Yes 24mg QD Take 24 mg Methodi ER 8-[address] (RAZADYNE 19:36: daily. Hospit a ER) 24 MG 38 l 24 hr capsule memantine Yes 10mg Q.5D Take 10 mg Me thodi (NAMENDA) 8-[address] 10 MG 19:36: (two) Hospita tablet 38 times a l day. mirabegron Yes 50mg QD Take 50 mg M ethodi (Myrbetriq) 8-[address] 50 mg 19:36: daily. Hospita tablet 38 l extended release 24 hr ferrous 0 Yes 325mg Q.5D Take 325 Metho di sulfate 325 8-[address] (65 FE) MG 19:36: mouth 2 Hosp rachel tablet 38 (two) l times a day. gabapentin 0 Yes 400mg Q.[id number] Take 400 Methodi (NEURONTIN) 8-13 [id number] mg by s t 400 mg 19:36: 3D mouth 3 Hospita capsule 38 (three) l times a day. hydrALAZINE 2020-0 2021- Yes 25mg Q.[id number] Take 1 Methodi (APRESOLINE 8-13 09-13 [id number] tablet (25 st ) 25 MG 00:00: 04:59 3D mg total) Hosp rachel tablet 00 :00 by mouth 3 l (three) times a day for 30 days. rOPINIRole 2020- Yes 1mg Q.5D Take 1 Meth abdiel (REQUIP) 1 01-08 tablet (1 st MG tablet 00:00: 04:59 mg total) Ho spita 00 :00 by mouth 2 l (two) times a day for 30 days. metoprolol 2020- Yes 12.5mg Q.5D Take 0.5 Methodi tartrate 01-[address] (LOPRESSOR) 00:00: 04:59 (12.5 mg H ospita 25 mg 00 :00 total) by l tablet mouth 2 (two) times a day for 30 days. spironolact 2020- Yes 25mg QD Take 1 Met hodi one 01-08 tablet (25 st (ALDACTONE) 00:00: 04:59 mg total) Hospita 25 MG 00 :00 by mouth l tablet daily for 30 days. isosorbide 2020- Yes 30mg QD Take 1 Meth abdiel mononitrate 01-08 tablet (30 s t (IMDUR) 30 00:00: 04:59 mg total) H ospita MG 24 hr 00 :00 by mouth l tablet daily for 30 days. metroNIDAZO 2020- Yes 250mg Q.[id number] Take 1 Methodi LE (FLAGYL) 01-[id number] 250 MG 00:00: 04:59 3D (250 mg Hospita tablet 00 :00 total) by l mouth 3 (three) times a day for 14 days. levoFLOXaci 2020- Yes 500mg QD Take 1 Me thodi n 01-[address] (LEVAQUIN) 00:00: 04:59 (500 mg Hos stefanie 500 MG 00 :00 total) by l tablet mouth daily for 14 days. guaiFENesin 2020- Yes 600mg Q.5D Take 1 Me thodi (MUCINEX) 01-[address] 600 mg 00:00: 04:59 (600 mg Hospita tablet 00 :00 total) by l extended mouth 2 release (two) 12hr times a day as needed (cough, congestion ) for up to 10 days. metroNIDAZO No 250mg Q.[id number] Take 1 Methodi LE (FLAGYL) 01-[id number] 250 MG 00:00: 00:00 3D (250 mg Hospita tablet 00 :00 total) by l mouth 3 (three) times a day for 7 days. levoFLOXaci No 500mg QD Take 1 Me roseodi n 01-[address] (LEVAQUIN) 00:00: 00:00 (500 mg Hos stefanie 500 MG 00 :00 total) by l tablet mouth daily for 7 days. UNABLE TO No as needed. Dennis srinivasanabdiel FIND 01-04 Med Name: st 18:54: 00:00 HYD Hospita 58 :00 BO/CPM l montelukast No 10mg QD Take 10 mg Methodi (SINGULAIR) 01-[address] 10 mg 18:53: 00:00 nightly. Hospita tablet 48 :00 [place] [id number] 1{tbl} Take 1 Methodi en-codeine 01-[address] (TYLENOL 18:49: 00:00 mouth as Hosp rachel WITH 09 :00 needed for l CODEINE #3) moderate 300-30 mg pain per tablet .acute pain. levoFLOXaci 2020- No 500mg QD Take 1 Me thodi n 01-[address] (LEVAQUIN) 00:00: 00:00 (500 mg Hos stefanie 500 MG 00 :00 total) by l tablet mouth daily for 5 [place] [id number] 1{tbl} Q6H Take 1-2 Methodi en-codeine 01-[address] (TYLENOL 00:00: 00:00 mouth Hospita WITH 00 :00 every 6 l CODEINE #3) (six) 300-30 mg hours as per tablet needed for moderate pain for up to 20 doses .acute pain. potassium 20meq Q.5D Take 20 Met hodi chloride 8-08 08-[address] (KLOR-CON) 00:00: 00:00 mouth 2 Hos stefanie 20 mEq 00 :00 (two) l packet times a day for 3 days. citalopram No 10mg QD Take 10 mg Methodi (CeleXA) 10 5-06 05-[address] MG tablet 17:15: 00:00 daily. Hospi ta 51 :00 l diclofenac Yes [id number] Q.25D Apply Methodi (VOLTAREN) 5- [address] 1 % gel 00:00: 4 (four) Hospit a 00 times a l day. Apply to right knee as needed. citalopram No 20mg QD Take 1 Meth abdiel (CeleXA) 20 10-01 05-07 tablet (20 s t MG tablet 00:00: 04:59 mg total) Ho spita 00 :00 by mouth l daily. potassium 2019-05 20meq Q2D Take 20 Met hodi chloride 2-14 12-[address] (K-DUR) 20 21:18: 00:00 mouth Hospi ta MEQ CR 59 :00 every [place] [id number] 112ug QD Take 1 M ethodi ne -15 10-[address] (SYNTHROID) 00:00: 04:59 (112 mcg H ospita 112 mcg 00 :00 total) by l tablet mouth daily for 30 days .a condition with low thyroid hormone levels. azithromyci No 250mg QD Take 0.5 Methodi n 9-15 09-[address] (ZITHROMAX) 00:00: 04:59 (250 mg Ho spita 500 MG 00 :00 total) by l tablet mouth daily [place] [id number] 112ug QD Take 1 M ethodi ne 9-15 09-[address] (SYNTHROID) 00:00: 00:00 (112 mcg H ospita 112 mcg 00 :00 total) by l tablet mouth daily for 30 days .a condition with low thyroid hormone levels. azithromyci 2019-2019- No 500mg QD Take 1 Me thodi n 02-10- tablet st (ZITHROMAX) 00:00: 00:00 (500 mg Ho spita 500 MG 00 :00 total) by l tablet mouth daily for 4 days. hydrALAZINE 2019- No 25mg Q.5D Take 25 mg Methodi (APRESOLINE 02-09 by mouth 2 s t ) 25 MG 19:34: 00:00 (two) Hospita tablet 16 :00 times a l day. furosemide 2019- No 20mg QD Take 20 mg Methodi (LASIX) 40 02-[address] mg tablet 19:34: 00:00 every Hospit a 16 :00 evening. l furosemide 2019-2019- No 40mg QD Take 40 mg Methodi (LASIX) 40 02-[address] mg tablet 19:34: 00:00 every Hospit a 16 :00 morning. l carvediloL 2019- No 6.25mg Q.5D Take 1 Me thodi (COREG) 02-09 10-[address] 6.25 MG 00:00: 04:59 (6.25 mg Hospi ta tablet 00 :00 total) by l mouth 2 (two) times a day for 30 days. arformotero 2019-2019- No [id number] 15ug Q.5D Take 2 mL Methodi L (BROVANA) 02-09 10-15 ([address] 15 mcg/2 mL 00:00: 04:59 total) by Hospita solution 00 :00 nebulizati l for on 2 (two) nebulizatio times a n day for 30 days. docusate 2019- No 100mg Q.5D Take 1 Metho di sodium 02-09 10-[address] (COLACE) 00:00: 04:59 (100 mg Hospi ta 100 MG 00 :00 total) by l capsule mouth 2 (two) times a day as needed for constipati on for up to 30 days. montelukast 2019-2019- No 10mg QD Take 1 Met hodi (SINGULAIR) 02-09 10-15 tablet (10 s t 10 mg 00:00: 04:59 mg total) Hospit a tablet 00 :00 by mouth l nightly for 30 days. polyethylen 2019- No 17g Q.5D Take 17 g Methodi e glycol 02-[address] (MIRALAX) 00:00: 04:59 (two) Hospit a 17 gram 00 :00 times a l packet day for 30 days. furosemide 2019- No 40mg Q.5D Take 1 Meth abdiel (LASIX) 40 02-0915 tablet (40 st mg tablet 00:00: 04:59 mg total) Ho spita 00 :00 by mouth 2 l (two) times a day for 30 days. hydrALAZINE 2019- No 25mg Q.[id number] Take 1 Methodi (APRESOLINE 02-09 [id number] tablet (25 st ) 25 MG 00:00: 04:59 3D mg total) Hosp rachel tablet 00 :00 by mouth 3 l (three) times a day for 30 days. hydrocodone 2019- No 2.5mL Q12H Take 2.5 Methodi -chlorpheni 02-09 09-[address] ramine 00:00: 04:59 mouth Hospita (TUSSIONEX 00 :00 every 12 l PENNKINETIC (twelve) ) 10-8 mg/5 hours as mL ER needed for suspension cough for up to 10 days. Max Daily Amount: 5 mL methylPREDN 2019- No follow Met hodi ISolone 02-[address] (Medrol, 00:00: 04:59 directions Ho spita Blane,) 4 mg 00 :00 l tablet furosemide 2019- No 40mg Q.5D Take 1 Meth abdiel (LASIX) 40 02-09 tablet (40 st mg tablet 00:00: 00:00 mg total) Ho spita 00 :00 by mouth 2 l (two) times a day for 30 days. hydrALAZINE 2019- No 25mg Q.[id number] Take 1 Methodi (APRESOLINE 02-0914 [id number] tablet (25 st ) 25 MG 00:00: 00:00 3D mg total) Hosp rachel tablet 00 :00 by mouth 3 l (three) times a day for 30 days. levothyroxi 2019- No [id number] 100ug QD Take 100 Methodi ne 02-[address] (SYNTHROID) 15:17: 00:00 mouth Hosp rachel 100 mcg 07 :00 daily. l tablet carvediloL No 6.25mg Q.5D Take 1 Me thodi (COREG) 01-[address] 6.25 MG 00:00: 00:00 (6.25 mg Hospi ta tablet 00 :00 total) by l mouth 2 (two) times a day for 30 days. predniSONE No Take 3 Meth abdiel (DELTASONE) 01-07 [id number], s t 10 mg 00:00: 04:59 3hxmb1d, Hospita tablet 00 :00 [id number] l then stop hydroxychlo Yes 1{tbl} Q.5D Take 1 Me thodi roquine -[address] (PLAQUENIL) 00:00: mouth 2 Hos stefanie 200 mg 00 (two) l tablet times a day. Immunizations Ordered Immunization Filled Immunization Date Status Commen ts Source Name Name FLUCELVAX QUAD PF 2020-02-[address] 00:00:00 Hospital FLUZONE HIGH-DOSE PF 2019-03-07 Completed Meth odist 00:00:00 Hospital FLUZONE HIGH-DOSE PF 2018-01-23 Completed Meth odist 00:00:00 [facility] PPD Test 2018-01-23 Completed [facility] 00:00:00 [facility] FLUZONE HIGH-DOSE PF 2017-02-24 Completed Meth odist 00:00:00 [facility] Tdap 2016-02-17 Completed [facility]ism 00:00:00 [facility] FLUZONE HIGH-DOSE PF 2015-02-18 Completed Meth odist 00:00:00 Hospital Influenza, 2015-01-27 Completed [facility]ism Unspecified 00:00:00 Hospital Zoster 2014-12-17 Completed [facility] 00:00:00 Hospital Vital Signs Vital Name Observation Time Observation Value Comments Source Heart rate 2021-01-08 16:25:00 69 /min [facility] Respiratory rate 2021-01-08 16:25:00 15 /min Meth odist [facility] Oxygen saturation in 2021-01-08 16:25:00 93 [facility]terial blood by Pulse oximetry Systolic blood 2021-01-08 14:00:08 135 mm[Hg] [facility] pressure Diastolic blood 2021-01-08 14:00:08 62 mm[Hg] [facility] pressure Body temperature 2021-01-08 09:00:[address] [facility] Body height 2021-01-04 03:25:00 152.4 cm [facility] Body weight 2021-01-04 03:25:00 70.308 kg [facility] BMI 2021-01-04 03:25:00 30.27 kg/m2 [facility] Procedures Procedure Date / Time Performing Clinician Source Performed HC COMPLETE BLD COUNT 2021-01-08 10:53:00 [facility] W/AUTO DIFF BASIC METABOLIC PANEL 2021-01-08 10:53:00 [facility] VITAMIN B1 LEVEL, WHOLE 2021-01-08 10:53:[address] [facility] BLOOD ESTIMATED GFR 2021-01-08 10:53:00 OnwLuis jernigan [facility] Ho spital HC COMPLETE BLD COUNT 2021-01-07 23:35:00 [facility] W/AUTO DIFF XR CHEST 1 VW PORTABLE 2021-01-07 21:43:00 Peng Cooley [facility] BASIC METABOLIC PANEL 2021-01-07 13:21[facility]00 [facility] HEMOGLOBIN A1C 2021-01-07 13:21:00 Margarita Carreno spital VITAMIN B12 LEVEL 2021-01-07 13:21:00 Margarita Carreno [facility] VITAMIN B6 LEVEL, PLASMA 2021-01-07 13:21:00 Margarita Carreno [facility] FOLATE LEVEL 2021-01-07 13:21:00 Margarita Carreno spital SERUM ELECTROPHORESIS 2021-01-07 13:21:00 Margarita Carreno [facility] THYROID STIMULATING 2021-01-07 13:21:00 Margarita Carreno [facility] HORMONE T4, FREE 2021-01-07 13:21:00 Margarita Carreno Ho spital ESTIMATED GFR 2021-01-07 13:21:00 OnaiwuLuis Ho spital HC COMPLETE BLD COUNT 2021-01-06 21:07:00 [facility] W/AUTO DIFF US CAROTID DUPLEX RIGHT 2021-01-06 21:02[facility] CARCINOEMBRYONIC ANTIGEN 2021-01-06 19:10:00 Peng Cooley t [facility] (CEA) PROTHROMBIN TIME WITH INR 2021-01-06 19:10:00 YasirErikh Sco tt [facility] PARTIAL THROMBOPLASTIN 2021-01-06 19:10:00 Wayzata Peng Jimi [facility] TIME (PTT) TTE COMPLETE, W CONTRAST, 2021-01-06 18:40:00 Patti Roca [facility] W DOPPLER ([id number]) HC COMPLETE BLD COUNT 2021-01-06 09:44:00 [facility] W/AUTO DIFF BASIC METABOLIC PANEL 2021-01-06 09:44:00 Onai [facility] ESTIMATED GFR 2021-01-06 09:44:00 [facility] POTASSIUM LEVEL 2021-01-05 21:26:00 OnaiLuis Ho spital HC COMPLETE BLD COUNT 2021-01-05 17:02:00 [facility] W/AUTO DIFF BASIC METABOLIC PANEL 2021-01-05 17:02:00 [facility] ESTIMATED GFR 2021-01-05 17:02:00 [facility] Ho [facility]ital STREPTOCOCCUS PNEUMONIAE 2021-01-04 15:20:00 [facility] URINARY ANTIGEN LEGIONELLA URINARY ANTIGEN 2021-01-04 15:20:00 [facility] COMPREHENSIVE METABOLIC 2021-01-04 08:51:00 Phil [facility] PANEL MAGNESIUM LEVEL 2021-01-04 08:51:00 [facility] PHOSPHORUS LEVEL 2021-01-04 08:51:00 Villarreal, [facility] THYROID STIMULATING 2021-01-04 08:51:00 Villarreal, [facility] HORMONE T4, FREE 2021-01-04 08:51:00 [facility], [facility] PREALBUMIN LEVEL 2021-01-04 08:51:00 Villarreal, [facility] CREATINE KINASE, TOTAL 2021-01-04 08:51:00 Villarreal, [facility] ([facility]) HC COMPLETE BLD COUNT 2021-01-04 08:51:00 Villarreal, [facility] W/AUTO DIFF ESTIMATED GFR 2021-01-04 08:51:00 Villar[facility], [facility] LACTIC ACID LEVEL 2021-01-04 08:51:00 Villarreal, [facility] TROPONIN 2021-01-04 08:51:00 Villar[facility], [facility] URINALYSIS 2021-01-04 06:17:00 Rick Ricks spital COVID-19 QUALITATIVE 2021-01-04 04:54:00 Rick Ricks Lauryn [facility] RT-PCR HC COMPLETE BLD COUNT 2021-01-04 04:45:00 Rick Ricks [facility] W/AUTO DIFF COMPREHENSIVE METABOLIC 2021-01-04 04:45:[address] [facility] PANEL LACTIC ACID, I-STAT 2021-01-04 04:45:00 Villarreal, [facility] TROPONIN, I-STAT 2021-01-04 04:45:00 Villarreal, [facility] B NATRIURETIC PEP, I-STAT 2021-01-04 04:45:00 Rick Ricks [facility] ESTIMATED GFR 2021-01-04 04:45:[address] HEAD WO CONTRAST 2021-01-04 04:41:03 Rick Ricks [facility] URINALYSIS 2021-01-03 16:04:[address] [facility] BLOOD CULTURE, AEROBIC & 2021-01-03 15:11:00 [facility] BLOOD CULT[facility], AEROBIC & 2021-01-03 15:00:00 Katiana Aleman [facility] ANAEROBIC CT CHEST WO CONTRAST 2021-01-03 14:56:11 Katiana Aleman [facility] XR CHEST 1 VW PORTABLE 2021-01-03 14:20:08 Katiana Aleman [facility] ECG ED PRELIMINARY 2021-01-03 14:05:[address] [facility] INTERPRETATION CBC WITH PLATELET AND 2021-01-03 13:59:00 Katiana Aleman [facility] DIFFERENTIAL COMPREHENSIVE METABOLIC 2021-01-03 13:59:00 Ash [facility] PANEL CREATINE KINASE, TOTAL 2021-01-03 13:59:00 [facility] TROPONIN, I-STAT 2021-01-03 13:59:00 Katiana Aleman [facility] B NATRIURETIC PEP, I-STAT 2021-01-03 13:59:00 Katiana Aleman [facility] LACTIC ACID, I-STAT 2021-01-03 13:59:00 Katiana Aleman [facility] ESTIMATED GFR 2021-01-03 13:59:00 Katiana Aleman [place] [facility] MANUAL DIFFERENTIAL 2021-01-03 13:59:00 Katiana Aleman [place] [facility] T4, FREE 2021-01-03 13:56:[address] [facility] THYROID STIMULATING 2021-01-03 13:56:00 Katiana Aleman [place] [facility] HORMONE ECG 12-LEAD 2021-01-03 13:54:33 [facility]NEE 3 VW RIGHT 2020-10-01 18:35:00 [facility] HEAD WO CONTRAST 2020-05-12 00:50:26 [facility] LIPID PANEL 2020-05-11 22:56:00 Cornelius Frias [facility] spital COMPREHENSIVE METABOLIC 2020-05-11 22:56:[address] [facility] PANEL VITAMIN B12 LEVEL 2020-05-11 22:56:00 [facility] URINALYSIS, AUTOMATED WITH 2020-05-11 22:56:00 [facility] MICROSCOPY CBC HEMOGRAM 2020-05-11 22:56:00 [facility] spital THYROID STIMULATING 2020-05-11 22:56:00 [facility] HORMONE ESTIMATED GFR 2020-05-11 22:56:00 [facility] spital ECG 12-LEAD 2020-02-10 13:42:50 [facility] BASIC METABOLIC PANEL 2020-02-10 10:54:00 [facility] HC COMPLETE BLD COUNT 2020-02-10 10:54:00 [facility] W/AUTO DIFF MAGNESIUM LEVEL 2020-02-10 10:54:00 [facility] PHOSPHORUS LEVEL 2020-02-10 10:54:00 [facility] B NATRIURETIC PEPTIDE 2020-02-10 10:54:00 [facility] ESTIMATED GFR 2020-02-10 10:54:00 [facility] BASIC METABOLIC PANEL 2020-02-09 09:00:00 [facility] ESTIMATED GFR 2020-02-09 09:00:00 [facility] HC COMPLETE BLD COUNT 2020-02-08 10:00:00 [facility] W/AUTO DIFF B NATRIURETIC PEPTIDE 2020-02-08 10:00:00 [facility] BASIC METABOLIC PANEL 2020-02-08 10:00:00 [facility] ESTIMATED GFR 2020-02-08 10:00:00 [facility] SPUTUM CULTURE 2020-02-08 04:09:00 [facility] FL FLUOROSCOPY OF 2020-02-07 22:18:27 Peng Co[facility] DIAPHRAGM NO FILMS URINE CULTURE 2020-02-07 18:20:00 [facility] XR CHEST 2 VW 2020-02-07 17:18:41 [facility] COMPREHENSIVE METABOLIC 2020-02-07 17:02:00 [facility] PANEL ESTIMATED GFR 2020-02-07 17:02:00 [facility] MAGNESIUM LEVEL 2020-02-07 17:02:00 [facility] PHOSPHORUS LEVEL 2020-02-07 17:02:00 [facility] GRAM STAIN 2020-02-07 16:50:00 [facility] LEGIONELLA URINARY ANTIGEN 2020-02-07 16:44:00 [facility] STREPTOCOCCUS PNEUMONIAE 2020-02-07 16:44:00 [facility] URINARY ANTIGEN URINALYSIS SCREEN AND 2020-02-07 16:44:00 [facility] MICROSCOPY, WITH REFLEX TO CULTURE CBC HEMOGRAM 2020-02-07 15:25:00 [facility] CV CTA CORONARY POST AFIB 2020-02-06 20:33:27 [email or web address] ABLATION B NATRIURETIC PEPTIDE 2020-02-06 09:59:00 [facility] HC COMPLETE BLD COUNT 2020-02-06 09:59:00 [facility] W/AUTO DIFF BASIC METABOLIC PANEL 2020-02-06 09:59:00 [facility] MAGNESIUM LEVEL 2020-02-06 09:59:00 [facility] PHOSPHORUS LEVEL 2020-02-06 09:59:00 [facility] ESTIMATED GFR 2020-02-06 09:59:00 [facility] XR CHEST 1 VW PORTABLE 2020-02-05 23:58:35 [email or web address] HC COMPLETE BLD COUNT 2020-02-05 10:18:00 [facility] W/AUTO DIFF BASIC METABOLIC PANEL 2020-02-05 10:18:00 [facility] MAGNESIUM LEVEL 2020-02-05 10:18:00 [facility] PHOSPHORUS LEVEL 2020-02-05 10:18:00 [facility] IONIZED CALCIUM 2020-02-05 10:18:00 [facility] B NATRIURETIC PEPTIDE 2020-02-05 10:18:00 [facility] ESTIMATED GFR 2020-02-05 10:18:00 [facility] US DUPLEX VENOUS LOWER 2020-02-04 21:00:00 Marvin [facility] EXTREMITY BILATERAL Mariel TTE COMPLETE, WO CONTRAST, 2020-02-04 13:30:00 Marvin [facility] W DOPPLER ([id number]) Mariel HC COMPLETE BLD COUNT 2020-02-04 09:45:00 Marvin [facility]/AUTO DIFF Mariel BASIC METABOLIC PANEL 2020-02-04 09:00:00 Marvin [facility] THYROID STIMULATING 2020-02-04 09:00:00 Patti Roca Lauryn [facility] HORMONE T4, FREE 2020-02-04 09:00:00 Patti Roca spital ESTIMATED GFR 2020-02-04 09:00:00 Caron Valle spital Mariel XR CHEST 1 VW PORTABLE 2020-02-03 19:50:29 [facility] COMPLETE BLD COUNT 2020-02-03 19:13:00 [facility] W/AUTO DIFF [facility] COMPREHENSIVE METABOLIC 2020-02-03 19:13:00 [facility] PANEL [facility] LACTIC ACID, I-STAT 2020-02-03 19:13:00 [facility] TROPONIN, I-STAT 2020-02-03 19:13:00 [facility] B NATRIURETIC PEP, I-STAT 2020-02-03 19:13:00 ParkinsonLudwin mckeonali [facility] CREATINE KINASE, TOTAL 2020-02-03 19:13:00 [facility] ESTIMATED GFR 2020-02-03 19:13:00 Radha Parkinson Ho spital [facility] COVID-19 QUALITATIVE 2020-02-03 18:50:[facility] INFLUENZA ANTIGEN TEST, 2020-02-03 18:50:00 [facility] REFLEX NEGATIVE TO RPP [facility] RESPIRATORY PATHOGEN PANEL 2020-02-03 18:50:00 ParkinsonLudwin mckeonali [facility] WITH COVID-19 RT-PCR [facility] Plan of Care Planned Activity Planned Date Details Comments Source Future Scheduled Test 65+ PNEUMOCOCCAL [facility] VACCINE (1 of 2 - PPSV23) [code = 65+ PNEUMOCOCCAL VACCINE (1 of 2 - PPSV23)] Future Scheduled Test COVID-19 VACCINE (1) [facility] [code = COVID-19 VACCINE (1)] Future Scheduled Test SHINGLES VACCINES (#2) [facility] [code = SHINGLES VACCINES (#2)] Future Scheduled Test INFLUENZA VACCINE [code [facility] = INFLUENZA VACCINE] Encounters Start End Encounter Admission Attending Care Care Encounter Source Date/Time Date/Time Type Type Clinicians Facility Department ID 2021-01-13 2021-01-13 Telephone Pawan 1.2.840.1 [id number] Methodi 00:00:00 00:00:[address] 3.430.2.7 Hospit a .3.406740 l .8 2021-01-12 2021-01-12 Telephone Callie Peng2.840.1 [id number] Methodi 00:00:00 00:00:[address] 3.430.2.7 Hospit a .3.069897 l .8 2021-01-03 2021-01-08 [facility] Rick Ricks2.840.1 [id number] Methodi 22:25:00 14:36:00 Encounter Amador Villarreal Roceal 73025.1.[address] Anish Novaker 3.430.2.7 [facility] .3.093659 l .8 2021-01-03 2021-01-08 [facility] 064 [id number] [facility] 00:00:00 00:00:00 LUIS [address] 2021-01-03 2021-01-03 Emergency [facility] 1.2.840.1 [id number] Methodi 08:48:00 12:01:[address] [place] 3.430.2.7 Hospit a .3.872518 l .8 2021-01-03 2021-01-03 Travel 1.2.840.1 1.2.779.767 5939 [id number] Methodi 00:00:00 00:00:[address] 3.430.2.7 0.2.7.3.698 [facility] .3.263419 084.8 l .8 2021-01-03 2021-01-03 Emergency [place] [id number] [place] [address] 00:00:00 00:00:[address] KATIANA [address] 2020-10-01 2020-10-01 [facility] Elian, 1.2.840.1 [id number] [id number] Methodi 13:09:39 23:59:00 Encounter Aden Quinones 56609.1.[address] 3.430.2.7 Hospit a .3.918065 l .8 2020-10-01 2020-10-01 Office Elian 1.2.840.1 [id number] Methodi 10:53:44 12:25:03 Visit Aden Quinones 15376.1.[address] 3.430.2.7 Hospit a .3.291575 l .8 2020-10-01 2020-10-01 Travel 1.2.840.1 1.2.733.334 5699 [id number] Methodi 00:00:00 00:00:[address] 3.430.2.7 0.2.7.3.698 Ho spita .3.108687 084.8 l .8 2020-10-01 2020-10-01 Outpatient ELIAN, [facility] [id number] [place] 00:00:00 00:00:[address] ADEN [address] 2020-10-01 2020-10-01 Outpatient ELIAN, [facility] [id number] [facility] 00:00:00 00:00:00 ADEN [address] 2020-05-11 2020-05-11 [facility] Cornelius Frias 1.2.840.1 [id number] Methodi 17:12:54 23:59:[address] 3.430.2.7 Hospit a .3.482128 l .8 2020-05-11 2020-05-11 Lab Cornelius Frias 1.2.840.1 [id number] Methodi 16:05:11 16:10:[address] 3.430.2.7 Hospit a .3.899995 l .8 2020-05-11 2020-05-11 Office Cornelius Frias 1.2.840.1 [id number] Methodi 15:02:49 15:37:[address] 3.430.2.7 Hospit a .3.586635 l .8 2020-05-11 2020-05-11 Outpatient CORNELIUS FRIAS [facility] [id number] [place] 00:00:00 00:00:[address] 2020-05-11 2020-05-11 Outpatient CORNELIUS FRIAS [facility] [id number] [facility] 00:00:00 00:00:[address] 2020-05-11 2020-05-11 Outpatient RODRIGUEZCORNELIUS Jernigan [facility] [id number] [facility] 00:00:00 00:00:[address] 2020-05-11 2020-05-11 Travel 1.2.840.1 1.2.460.055 5325 [id number] Methodi 00:00:00 00:00:[address] 3.430.2.7 0.2.7.3.698 Ho spita .3.945742 084.8 l .8 2020-04-09 2020-04-09 External All, 1.2.840.1 [id number] 2100 [id number] Methodi 00:00:00 00:00:00 Home Rashida [address]224.1.[address] [facility] 3.430.2.7 Hospit a .3.673054 l .8 2020-03-06 2020-03-06 External All, 1.2.840.1 [id number] Methodi 00:00:00 00:00:00 Home Rashida 72317.1.[address] [facility] 3.430.2.7 Hospit a .3.139154 l .8 2020-02-11 2020-02-11 Patient Brent Kerline 1.2.840.1 [id number] 2100 [id number] Methodi 00:00:00 00:00:[address] 3.430.2.7 Hospit a .3.715213 l .8 2020-02-03 2020-02-10 [facility] 1.2.840 .1 [id number] Methodi 13:20:24 14:34:00 Encounter Miguel Ángel Thurman Bao 80463.1.[address] [place], ramona T. 3.430.2.7 Hospita .3.639214 l .8 2020-02-03 2020-02-10 Inpatient [facility] 012 [id number] [facility] 00:00:00 00:00:00 [facility] [address] 2020-02-03 2020-02-03 Travel 1.2.840.1 1.2.927.963 0818 [id number] Methodi 00:00:00 00:00:[address] 3.430.2.7 0.2.7.3.698 Ho spita .3.906645 084.8 l .8 2020-01-20 2020-01-20 External Fisher, 1.2.840.1 [id number] 2100 [id number] Methodi 00:00:00 00:00:00 Home Stacie 24933.1.1 595 [facility] 3.430.2.7 Hospit a .3.415315 l .8 2020-01-07 2020-01-08 Outpatient TANVIR, [facility] [id number] [place] 00:00:00 00:00:00 DYLAN [address] 2020-01-06 2020-01-06 Outpatient HUST, [facility] [id number] [place] 00:00:00 00:00:[address] PATTI [address] 2019-10-07 2019-10-07 Outpatient HUST, [facility] [id number] [id number] [place] 00:00:00 00:00:00 PATTI [address] 2019-07-08 2019-07-08 Outpatient HUST, [facility] [id number] [facility] 00:00:00 00:00:00 PATTI [address] 2019-07-08 2019-07-08 Outpatient HUST, [facility] [id number] [place] 00:00:00 00:00:00 PATTI [address] 2019-05-13 2019-05-15 Outpatient LUNDBERG, [facility] [id number] [place] 00:00:00 00:00:00 ROSEJONYEN [address] 2019-04-08 2019-04-08 Outpatient HUST, [facility] [id number] [facility] 00:00:00 00:00:[address] PATTI [address] 2016-10-11 2016-10-11 Outpatient MHIE MHIE [id number] [facility] 13:30:00 13:30:00 01 caroline Gross 2016-10-11 2016-10-11 Outpatient MHIE MHIE [id number] [facility] 13:30:00 13:30:00 01 caroline Gross 2016-08-30 2016-08-30 Outpatient MHIE MHIE [id number] [facility] 15:00:00 15:00:00 00 caroline Gross 2016-08-30 2016-08-30 Outpatient MHIE MHIE [id number] [facility] 15:00:00 15:00:00 00 l Renato Results Test Description Test Test Results Result Source Time Comments Comments XR Chest 1 Vw 2020-12- EXAMINATION: XR CHEST 1 Confucianism Portable 12 VW PORTABLE CLINICAL Hosp ital 21:55:04 HISTORY: PNA COMPARISON: CT chest January 03, 2021. IMPRESSION: Focal consolidation in the right upper lobe. Mild interstitial prominence is more pronounced in the right lung. Enlarged cardiomediastinal silhouette. Pulmonary vascular congestion. AICD is noted. [id number] Interface, Radiology Results Incoming - 01/07/2021 4:58 PM CDT EXAMINATION: XR CHEST 1 VW PORTABLECLINICAL HISTORY: PNACOMPARISON: CT chest January 03, 2021.IMPRESSION:Focal consolidation in the right upper lobe.Mild interstitial prominence is more pronounced in the right lung.Enlarged cardiomediastinal silhouette.Pulmonary vascular congestion.AICD is noted.[id number] Pv carotid duplex 2020-12- [address] 22:17:00 [facility] Carotid Artery Duplex Report [id number] [place] [address] For engagement quality consultant purposes, the categorization of the degree of the stenosis of this exam is based on criteria described in the IAC carotid stenosis grading white paper( www.intersocietal.org/Vas cular) and Jorge Singh., Mikael CLaurynB., et al. Carotid artery stenosis: sandoval-scale and Doppler US diagnosis--Society of Radiologists in Ultrasound Consensus Conference. Radiology. 2003 Mar; 229(2):340-6. Pat.Name: BENITEZ ASIF Pat.ID: [id number] .Date: 01/06/2021 Refer.MD: PATTI ROCA MD Exam Time: 3:13:00 PM Study Type:Carotid Height: 60in Weight: 155lb BSA: 1.68 m2 Age: 2 1935,85Y Sex: FEMALE Sonogrphr: PILY Duque Pat. Stat.:Inpatient Room: [address] Vol: BE, CPT - 4: 92159 Echo Event ID:[id number] Order ID: [id number] Reason for Study:Atherosclerotic disease in other vascular beds.Syncope of uncertain cause after initial cardiovascular eval. Histroyof dimentia, spasms, HLD, HTN, TIA, Aphasia and restless legs. Procedures: Colorflow, Grayscale/2D, Pulsed wave DopplerRace: C SUMMARY:------ -----PHYSICAL ASSESSMENT Blood Pulses Carotid Pressure Carotid Temporal BruitRight IV Left 146/63 CAROTID ARTERY SCANRIGHT: There is calcified plaque noted in the common carotid artery.There is hard and calcified plaque noted in the bulb extending intothe internal and external carotid arteries. The internal and externalcarotid arteries are tortuous. The mid-distal internal carotid arteryand vertebral artery where not visualized. LEFT: Not visualized due to patients refusal. PRELIMINARY FINDINGS1. <50% stenosis noted in the right bulb and internal carotid artery.2. >50% stenosis noted in the right external carotid artery.3. The right vertebral artery was not visualized.4. The left carotid artery was not visualized due to patients refusal.5. Technically difficult study due to patient being uncooperative andconstantly moving due to restless legs. PHYSICIAN INTERPRETATION Unilateral carotid duplex examination demonstrated atheroscleroticplaques in the right bulb. Less than 50% stenosis in the right internal carotid artery.>50%stenosis noted in the right external carotid artery. FINDING S: Carotid Findings: Right Left Verteb.Flw Not Visualized Subclavian Triphasic Triphasic MEASUREMENTS:- DOPPLERRight CCA Dist CCA Dist PSV 68 cm/s CCA Dist CCA Dist EDV 10 cm/s CCA Mid CCA Mid PSV 78 cm/s CCA Mid EDV 7 cm/sCCA Prox CCA Prox PSV 67 cm/s CCA Prox EDV 7 cm/Lacy Prox ICA Prox PSV 74 cm/s ICA Prox EDV 12 cm/sRight ECA Prox ECA Prox PSV 160 cm/s ECA Prox ECA Prox EDV 9 cm/s Right Subclavian Subclavian PSV 141 cm/s Subclavian EDV 13.7 cm/sLeft Subclavian Subclavian PSV 155 cm/s Subclavian EDV 5.12 cm/sRight SCA Prox SCA Prox PSV 142 cm/s SCA Prox EDV 14 cm/sLeft SCA Prox SCA Prox PSV 155 cm/s SCA Prox EDV 5 cm/sRight ICA/CCA Ratio ICA/CCA PSV 0.949 Signed 01/06/2021 05:17 PMZsolt Irineo MD, RPVIInterveterans health administration, Radiology Results In - 01/06/2021 5:18 PM CDT Vascular Ultrasound Laboratory Carotid Artery Duplex Report [id number] [place] [address] For engagement quality consultant purposes, the categorization of the degree of the stenosis of this exam is based on criteria described in the IAC carotid stenosis grading white paper( www.intersocietal.org/Vas cular) and Francisco, Sebas.Yolanda., Mikael CLaurynB., et al. Carotid artery stenosis: sandoval-scale and Doppler US diagnosis--Society of Radiologists in Ultrasound Consensus Conference. Radiology. 2003 Nov; 229(2):340-6. Pat.Name: BENITEZ ASIF Pat.ID: [id number] St.Date: 01/06/2021 Refer.MD: PATTI ROCA MD Exam Time: 3:13:00 PM Study Type:Carotid Height: 60in Weight: 155lb BSA: 1.68 m2 Age: 2 1935,85Y Sex: FEMALE Sonogrphr: PILY Duque Pat. Stat.:Inpatient Room: [address] Vol: BE, CPT - 4: 24141 Echo Event ID:[id number] Order ID: [id number] Reason for Study:Atherosclerotic disease in other vascular beds.Syncope of uncertain cause after initial cardiovascular eval. Histroyof dimentia, spasms, HLD, HTN, TIA, Aphasia and restless legs. Procedures: Colorflow, Grayscale/2D, Pulsed wave DopplerRace: C SUMMARY:------ -----PHYSICAL ASSESSMENT Blood Pulses Carotid Pressure Carotid Temporal BruitRight IV Left 146/63 CAROTID ARTERY SCANRIGHT: There is calcified plaque noted in the common carotid artery.There is hard and calcified plaque noted in the bulb extending intothe internal and external carotid arteries. The internal and externalcarotid arteries are tortuous. The mid-distal internal carotid arteryand vertebral artery where not visualized. LEFT: Not visualized due to patients refusal. PRELIMINARY FINDINGS1. <50% stenosis noted in the right bulb and internal carotid artery.2. >50% stenosis noted in the right external carotid artery.3. The right vertebral artery was not visualized.4. The left carotid artery was not visualized due to patients refusal.5. Technically difficult study due to patient being uncooperative andconstantly moving due to restless legs. PHYSICIAN INTERPRETATION Unilateral carotid duplex examination demonstrated atheroscleroticplaques in the right bulb. Less than 50% stenosis in the right internal carotid artery.>50%stenosis noted in the right external carotid artery. FINDING S: Carotid Findings: Right Left Verteb.Flw Not Visualized Subclavian Triphasic Triphasic MEASUREMENTS:- DOPPLERRight CCA Dist CCA Dist PSV 68 cm/s CCA Dist CCA Dist EDV 10 cm/s CCA Mid CCA Mid PSV 78 cm/s CCA Mid EDV 7 cm/sCCA Prox CCA Prox PSV 67 cm/s CCA Prox EDV 7 cm/Lacy Prox ICA Prox PSV 74 cm/s ICA Prox EDV 12 cm/sRight ECA Prox ECA Prox PSV 160 cm/s ECA Prox ECA Prox EDV 9 cm/s Right Subclavian Subclavian PSV 141 cm/s Subclavian EDV 13.7 cm/sLeft Subclavian Subclavian PSV 155 cm/s Subclavian EDV 5.12 cm/sRight SCA Prox SCA Prox PSV 142 cm/s SCA Prox EDV 14 cm/sLeft SCA Prox SCA Prox PSV 155 cm/s SCA Prox EDV 5 cm/sRight ICA/CCA Ratio ICA/CCA PSV 0.949 Signed 01/06/2021 05:17 PMZsolt Irineo MD, RPVI Transthoracic 2020-12- Confucianism Echocardiogram [address] [place] [address], (w 21:40:00 Echocardiography Contrast, Strain Report [id number] and 3D if needed) [address]Name: BEINTEZ ASIF Pat.ID: [id number] .Date: 01/06/2021 Refer.MD: PATTI ROCA MD Exam Time: 12:52:00 PM Study Type:Routine Echo Height: 69in Weight: 155lb BSA: 1.86 m2 Age: 2 1935,85Y Sex: FEMALE BP: 136/62 HR: 73 bpm Sonogrphr: Rose Spence RDCS, RVTPat. Stat.:Inpatient Room: [facility] Study Status:Final Echo Event ID:[id number] Order ID: [id number] Reason for Study:Syncope - Intermediate or high global CAD riskHistory / Clinical:Stroke, COPD, Coronary Artery Disease,Hyperlipidemia, Hypertension, TIAProcedures: 2D Echo, Colorflow Doppler, Portable, Intravenous DefinityContrastRace: C SUMMARY:------ -----LV size is normal. Concentric left ventricular remodeling. EstimatedEF is >70%.Diastolic dysfunction Grade II (Moderate): Impaired relaxation withelevated LV filling pressures.Estimated PA systolic pressure is 41 mmHg, assuming a mean RAP of 5mmHg. FINDINGS : LV: LV size is normal. Concentric left ventricular remodeling. LV EF is hyperdynamic. Overall wall motion is hyperdynamic. Estimated EF is >70%.RV: A catheter or pacemaker wire is seen in the RV. RV systolic function is normal. RV wall motion is normal.LA: LA volume is severely enlarged.RA: RA volume is normal. A catheter or pacemaker wire is seen.AO: Aortic root diameter is normal.[place]: No pericardial effusion.AV: Tri cuspid aortic valve.MV: No structural MV abnormalities noted.PV: No structural PV abnormalities noted.TV: No structural TV abnormalities noted. Mild tricuspid regurgitation Roman: Diastolic dysfunction Grade II (Moderate): Impaired relaxation with elevated LV filling pressures.Other: Estimated PA systolic pressure is 41 mmHg, assuming a mean RAP of 5 mmHg. MEASUREME NTS: 2DParasternal Long [place]ont Ao An 1.8 cm LVPWd 1.1 cm Ao Rtd 3.2 cm Index 1.7 cm/m2 LA Ds 2.5 cm IVSd 1 cm RWT 0.53 LVIDd 4.2 cm Index 2.2 cm/m2 LV Mass 149 g (87-129) LVIDs 2.3 cm LVM Index 80 g/m2 LV%fs 45 % LVOT 1.8 cm LA Sng Plane LA Area 27 cm2 (8.8-23.4) LA Vol 95 ml Index 51 ml/m2 LA LngAx 6.6 cm LVOT LVOT Area 2.5 cm2 DOPPLERLVOT Stroke Vol & Cardiac Out LVOT TVI 29 cm HR 69 bpm LVOT LVOT SV 72 ml LVOT CO 5 l/min SVi 39 ml/m2 LVOT CI 2.7 l/m/m2 Signed 01/06/2021 04:40 PMSnestor Scruggs M.D.Interface, Radiology Results In - 01/06/2021 4:56 PM CDT Echocardiography Report [id number]Name: BENITEZ ASIF Pat.ID: [id number] St.Date: 01/06/2021 Refer.MD: PATTI ROCA MD Exam Time: 12:52:00 PM Study Type:Routine Echo Height: 69in Weight: 155lb BSA: 1.86 m2 Age: 2 1935,85Y Sex: FEMALE BP: 136/62 HR: 73 bpm Sonogrphr: Rose Spence RDCS, RVTPat. Stat.:Inpatient Room: [facility] Study Status:Final Echo Event ID:[id number] Order ID: [id number] Reason for Study:Syncope - Intermediate or high global CAD riskHistory / Clinical:Stroke, COPD, Coronary Artery Disease,Hyperlipidemia, Hypertension, TIAProcedures: 2D Echo, Colorflow Doppler, Portable, Intravenous DefinityContrastRace: C SUMMARY:------ -----LV size is normal. Concentric left ventricular remodeling. EstimatedEF is >70%.Diastolic dysfunction Grade II (Moderate): Impaired relaxation withelevated LV filling pressures.Estimated PA systolic pressure is 41 mmHg, assuming a mean RAP of 5mmHg. FINDINGS : LV: LV size is normal. Concentric left ventricular remodeling. LV EF is hyperdynamic. Overall wall motion is hyperdynamic. Estimated EF is >70%.RV: A catheter or pacemaker wire is seen in the RV. RV systolic function is normal. RV wall motion is normal.LA: LA volume is severely enlarged.RA: RA volume is normal. A catheter or pacemaker wire is seen.AO: Aortic root diameter is normal.GARLAND: No pericardial effusion.AV: Tri cuspid aortic valve.MV: No structural MV abnormalities noted.PV: No structural PV abnormalities noted.TV: No structural TV abnormalities noted. Mild tricuspid regurgitation Roman: Diastolic dysfunction Grade II (Moderate): Impaired relaxation with elevated LV filling pressures.Other: Estimated PA systolic pressure is 41 mmHg, assuming a mean RAP of 5 mmHg. MEASUREME NTS: 2DParasternal Long Dumont Ao An 1.8 cm LVPWd 1.1 cm Ao Rtd 3.2 cm Index 1.7 cm/m2 LA Ds 2.5 cm IVSd 1 cm RWT 0.53 LVIDd 4.2 cm Index 2.2 cm/m2 LV Mass 149 g (87-129) LVIDs 2.3 cm LVM Index 80 g/m2 LV%fs 45 % LVOT 1.8 cm LA Sng Plane LA Area 27 cm2 (8.8-23.4) LA Vol 95 ml Index 51 ml/m2 LA LngAx 6.6 cm LVOT LVOT Area 2.5 cm2 DOPPLERLVOT Stroke Vol & Cardiac Out LVOT TVI 29 cm HR 69 bpm LVOT LVOT SV 72 ml LVOT CO 5 l/min SVi 39 ml/m2 LVOT CI 2.7 l/m/m2 Signed 01/06/2021 04:[address] Head Wo 2020-12- EXAMINATION: CT HEAD WO Confucianism Contrast 09 CONTRAST CLINICAL Hospita l 04:48:43 HISTORY: Headache intracranial hemorrhage suspected COMPARISON: CT head 05/11/2020 TECHNIQUE: Noncontrast head CT performed using radiation dose reduction techniques. Technical factors are evaluated and adjusted to ensure appropriate moderation of exposure. Automated dose management technology is applied to adjust radiation exposure while achieving a diagnostic quality image. FINDINGS: No evidence of acute intracranial hemorrhage, mass, mass effect, midline shift, or acute infarct. Ventricles and sulci are unchanged. Severe chronic microvascular ischemic change. Basal cisterns are clear. Calvarium is intact. Bilateral lens extractions. No significant paranasal sinus mucosal thickening. Mastoid air cells are clear. IMPRESSION: 1. No CT evidence of acute intracranial abnormality. [facility] Interface, Radiology Results - 01/03/2021 11:51 PM CDT EXAMINATION: CT HEAD WO CONTRASTCLINICAL HISTORY: Headache intracranial hemorrhage suspectedCOMPARISON: CT head 05/11/2020TECHNIQUE: Noncontrast head CT performed using radiation dose reduction techniques. Technical factors are evaluated and adjusted to ensure appropriate moderation of exposure. Automated dose management technology is applied to adjust radiation exposure while achieving a diagnostic quality image. FINDINGS:No evidence of acute intracranial hemorrhage, mass, mass effect, midline shift, or acute infarct. Ventricles and sulci are unchanged. Severe chronic microvascular ischemic change. Basal cisterns are clear. Calvarium is intact.Bilateral lens extractions. No significant paranasal sinus mucosal thickening. Mastoid air cells are clear.IMPRESSION:1. No CT evidence of acute intracranial abnormality.[id number]-MPHYBXN SARS-CoV-2 (COVID-19) RNA [Presence] in Respiratory sp ecimen by 2021-01-04 00:43:13 JOHN with probe detection Test Item Value Reference Range Interpretation Comme nts SARS-CoV-2 (COVID-19) RNA [Presence] in Respiratory Not detected No t-Detected specimen by JOHN with probe detection (test code = 84074-6) Whether patient is employed in a healthcare setting (test code = 54953-4) Whether the patient has symptoms related to condition of interest (test code = 14268-9) Patient was hospitalized because of this condition (test code = 12361-6) Whether the patient was admitted to intensive care unit (ICU) for condition of interest (test code = 10464-6) Whether patient resides in a congregate care setting (test code = 66642-2) status (test code = 93524-7) ECG 12 [id number] 21:46:51 Test Item Value Reference Range Interpretation Comments Ventricular rate (test code = 253) Atrial rate (test code = 255) GA interval (test code = 266) QRSD interval (test code = 260) QT interval (test code = 264) QTC interval (test code = 265) P axis 1 (test code = 267) QRS axis 1 (test code = 268) T wave axis (test code = 270) EKG impression (test Atrial-paced rhythm code = 273) with prolonged AV conduction-Abnormal ECG-In automated comparison with ECG of 10-FEB-2020 08:42,-No significant change was found- [facility] Chest Wo [id number] 15:06:34EXAMINATION: CT CHEST WO CONTRAST CLINICAL HISTORY: left chest pain TECHNIQUE: Axial images of the c hest were obtained without intravenous contrast. The lack of intravenous contrast reduces the sensitivity of the exam and evaluating vasculature. CT imaging was performed with iterative reconstruction technique and/or automated exposure control to reduce radiation dose. COMPARISON: May 13, 2019. Limited comparison with radiograph from February 07, 2020. FINDINGS: Lungs and airways: There is a masslike consolidation with surrounding groundglass extending from the right upper lobe into the right middle lobe (there appears to be an incomplete right minor fissure). Maximum diameter is approximately 5 cm. Motion artifact limits evaluation of lung parenchymal detail. Mosaic attenuation likely represents a nonspecific small airways process. Pleura: No pleural effusion or pneumothorax. Mediastinum and lymph nodes: Diminutive thyroid gland, suggestive of hypothyroidism. Mediastinal and hilar lymph nodes measure up to 1.2 cm short axis have increased in size compared to prior exam (see for example lower right paratracheal node on image 44 of series 2, which currently measures 1.2 cm and previously measured 0.6 cm). Cardiovascular: The ascending aorta is mildly dilated, measuring 3.9 cm. The main pulmonary artery is mildly dilated, measuring 3.3 cm. Heavy coronary artery and additional scattered vascular calcifications. Pacemaker leads terminate in the right atrium and right ventricle. Small pericardial fluid, favor physiologic. Upper abdomen: Large type II hiatal hernia. Musculoskeletal: Scattered degenerative osseous changes. Demineralized bones. IMPRESSION: 1.An approximately 5 cm masslike consolidation extends from the right upper lobe and to the right middle lobe. This area appeared relatively clear on radiograph from January 2020, arguing for pneumonia over neoplasm. However, an aggressive primary lung malignancy remains a differential diagnostic consideration, and careful workup/follow-up will be required. Of note, the rounded morphology and surrounding groundglass raises the possibility of atypical organisms (e.g. fungal pneumonia) if this does end up being an infectious process.2.Mildly enlarged mediastinal and hilar lymph nodes could be reactive or metastatic. Recommend attention at follow-up.3.Mildly dilated ascending aorta and main pulmonary artery, measuring 3.9 and 3.3 cm, respectively.4.Heavy coronary artery calcifications.5.Large type II hiatal hernia. [facility] Interface, Radiology Results Incoming - 01/03/2021 10:09 AM CDT EXAMINATION: CT CHEST WO CONTRASTCLINICAL HISTORY: left chest painTECHNIQUE: Axial images of the chest were obtained without intravenous contrast. The lack of intravenous contrast reduces the sensitivity of the exam and evaluating vasculature. CT imaging was performed with iterative reconstruction technique and/or automated exposure control to reduce radiation dose.COMPARISON: May 13, 2019. Limited comparison with radiograph from February 07, 2020.FINDINGS:Lungs and airways: There is a masslike consolidation with surrounding groundglass extending from the right upper lobe into the right middle lobe (there appears to be an incomplete right minor fissure). Maximum diameter is approximately 5 cm. Motion artifact limits evaluation of lung parenchymal detail. Mosaic attenuation likely represents a nonspecific small airways process. Pleura: No pleural effusion or pneumothorax.Mediastinum and lymph nodes: Diminutive thyroid gland, suggestive of hypothyroidism. Mediastinal and hilar lymph nodes measure up to 1.2 cm short axis have increased in size compared to prior exam (see for example lower right paratracheal node on image 44 of series 2, which currently measures 1.2 cm and previously measured 0.6 cm).Cardiovascular: The ascending aorta is mildly dilated, measuring 3.9 cm. The main pulmonary artery is mildly dilated, measuring 3.3 cm. Heavy coronary artery and additional scattered vascular calcifications. Pacemaker leads terminate in the right atrium and right v entricle. Small pericardial fluid, favor physiologic.Upper abdomen: Large type II hiatal hernia.Musculoskeletal: Scattered degenerative osseous changes. Demineralized bones.IMPRESSION:1.An approximately 5 cm masslike consolidation extends from the right upper lobe and to the right middle lobe. This area appeared relatively clear on radiograph from January 2020, arguing for pneumonia over neoplasm. However, an aggressive primary lung malignancy remains a differential diagnostic consideration, and careful workup/follow-up will be required. Of note, the rounded morphology and surrounding groundglassraises the possibility of atypical organisms (e.g. fungal pneumonia) if this does end up being an infectious process.2.Mildly enlarged mediastinal and hilar lymph nodes could be reactive or metastatic.Recommend attention at follow-up.3.Mildly dilated ascending aorta and main pulmonary artery, measuring 3.9 and 3.3 cm, respectively.4.Heavy coronary artery calcifications.5.Large type II hiatal hernia.[facility]WN[facility] Preliminary Interpretation - Not an [id number] 14:05:52Katiana Aleman MD 01/03/2021 3:35 [facility] ED Preliminary Interpretation - Not an OrderPerformed by: Katiana Aleman MDAuthorized by: Katiana Aleman MD ECG reviewed by ED Physicianin the absence of a manager services: yes Previous ECG: Previous ECG: Compared to current Comparison ECG info: 02/09/20 Similarity: No changeInterpretation: Interpretation: non-specific Quality: Tracing quality: Limited by artifactRate: ECG rate: 67 ECG rate assessment: normal Rhythm: Rhythm: paced Ectopy: Ectopy: none ST segments: ST segments: NormalT waves: T waves: normalWoman'S Hospital Of TexasXR Knee 3 Vw [id number] 18:56:31EXAMINATION: XR KNEE 3 VW RIGHT CLINICAL HISTORY: M25.461 Effusion right knee, knee effusion COMPARISON: None. IMPRESSION: No acute fracture or dislocation.Mild tricompartmental osteoarthrosis.Large with nonspecific joint effusion. [facility]- [id number] Dictated and approved by radiology assistant/fellow:Ed Barkley M.D. I, Adan Garcia, personally reviewed the images and resident's/fellow's findings and agree with the final report.[facility], Radiology Results Incoming - 10/01/2020 1:59 PM CDT EXAMINATION: XR KNEE 3 VW RIGHTCLINICALHISTORY: M25.461 Effusion right knee, knee effusionCOMPARISON: None.IMPRESSION:No acute fracture or dislocation.Mild tricompartmental osteoarthrosis.Large with nonspecific joint effusion.[facility]-[id number] and approved by radiology assistant/fellow: Faisal Nye, Adan Garcia, personally reviewed the images and resident's/fellow's findings and agree with the final report. [facility] TexasUrinalysis, automated with [id number] 23:23:56 Test Item Value Reference Range Interpretation Comments Color, UA (test code = Straw 5778-6) Appearance, UA (test Clear code = 5767-9) Specific gravity, UA 1.001-1.035 (test code = 5811-5) pH, UA (test code = 5.0-8.5 5803-2) Protein, UA (test code = Negative Negative 51315-5) Glucose, UA (test code = Negative Negative 81331-5) Ketones, UA (test code = Negative Negative 2514-8) Bilirubin, UA (test code Negative Negative = 5770-3) Blood, UA (test code = Negative Negative 5794-3) Nitrite, UA (test code = Negative Negative 5802-4) Urobilinogen, UA (test <2.0 <2.0 code = 65915-9) Leukocyte esterase, UA Small Negative A (test code = 5799-2) Epithelial cells, UA See_Comment [Autom ated message] (test code = 5787-7) The s tem which generated this result transmit morteza reference range : /HPF. The refer ence range was not u sed to interpret th is result as normal/abnormal . WBC, UA (test code = See_Comment H [Autom ated message] 5821-4) The system [employer] generated this result transmit morteza reference range : 0 - 4 /HPF. The reference range was not used to interpret this result as normal/abnormal . RBC, UA (test code = <1 See_Comment [Autom ated message] 02904-3) The system [facility] h generated this result transmit morteza reference range : 0 - 5 /HPF. The reference range was not used to interpret this result as normal/abnormal . Bacteria, UA (test code Few None seen = 44174-4) Hyaline casts, UA (test >20 See_Comment A [Au tomated message] code = 5796-8) The system [facility] generated this result transmit morteza reference range : /LPF. The refer ence range was not u sed to interpret th is result as normal/abnormal . Yeast, UA (test code = None seen 07179-7) Yeast with pseudohyphae, None seen UA (test code = 74985-9) Lab Interpretation (test Abnormal code = 48531-0) [facility] [id number] 16:26:03 Test Item Value Reference Range Interpretation Comments Sputum culture isolate Normal oral ella (test code = 2234) isolated. [facility] [id number] 00:13:51 Test Item Value Reference Range Interpretation Comments Urine culture isolate Mixed ella <=10-3 (test code = 22732-5) col/cc [facility] Hospital Of TexasFL Fluoroscopy Of Diaphragm No [id number] 22:27:46FL FLUOROSCOPY OF DIAPHRAGM NO FILMSCLINICAL HISTORY: DYSPNEA CARDIAC ORIGIN SUSPECTED TECHNIQUE: Diaphragms were observed under fluoroscopy during quiet and deep breathing and with sniff testing. COMPARISON: None. DOSE: 31.16 mGy (ka,r) FINDINGS: There is normal diaphragmatic excursion. No paradoxical motion of the diaphragms is identified. There are no findings for diaphragmatic paralysis. Elevation of the right compared to left hemidiaphragm is noted which can be seen developmentally. IMPRESSION: No fluoroscopic evidence of diaphragmatic paralysis. *[facility]-[id number] Interface, Radiology Results Incoming - 02/07/2020 5:30 PM CDT FL FLUOROSCOPY OF DIAPHRAGM NO FILMSCLINICAL HISTORY: DYSPNEA CARDIAC ORIGIN SUSPECTEDTECHNIQUE: Diaphragms were observed under fluoroscopy during quiet and deep breathing and with sniff testing.COMPARISON: None.DOSE: 31.16 mGy (ka,r) FINDINGS:There is normal diaphragmatic excursion. No paradoxical motion of the diaphragms is identified. There are no findings for diaphragmatic paralysis. Elevation of the right compared to left hemidiaphragm is noted which can be seen developmentally.IMPRESSION:No fluoroscopic evidence of diaphragmatic paralysis.*[facility]-[id number] HospitalXR Chest 2 [id number] 17:31:16 EXAMINATION: XR CHEST 2 VW CLINICAL HISTORY: Shortness of breath COMPARISON: Most Recent Prior [facility] IMPRESSION: Lines: Left subclavian approach with the lead cardiac device, unchanged. Lungs and pleura: Improved but persistent vascular congestion. Right basilar atelectasis, unchanged. No significant effusion or pneumothorax. Heart and mediastinum: Stable appearance of cardiomediastinal silhouette. Small to moderate-sized hiatal hernia. Bones: Bones are demineralized. Thoracic spondylosis. [facility]-[id number] Interface, Radiology Results - 02/07/2020 12:34 PM CDTFormatting of this note mi ght be different from the original.EXAMINATION: XR CHEST 2 VWCLINICAL HISTORY: Shortness of breathCOMPARISON: [facility]PRESS[facility]:Lines: Left subclavian approach with the lead cardiacdevice, unchanged.Lungs and pleura: Improved but persistent vascular congestion. Right basilar atelectasis, unchanged. No significant effusion or pneumothorax.Heart and mediastinum: Stable appearance of cardiomediastinal silhouette. Small to moderate-sized hiatal hernia.Bones: Bones are demineralized.Thoracic spondylosis.[facility]-[id number] [facility] ct coronary angio post [id number] 20:54:00 [address] [place] [address] Department Number: [phone] CTA Coronary Arteries ReportPat.Name: BENITEZ ASIF Lili.ID: [id number] .Date: 02/06/2020 Refer.MD: PATTI ROCA MD Exam Time: 12:50:00 PM Study Type:CTA Coronary Arteries Height: 60in Weight: 165lb BSA: 1.72 m2 Age:2 1935,84Y Sex: FEMALE BP: 175/86 HR: 64 bpm Nuclear Tech:ORA Johnson(N)(CT)Pat. Stat.:Inpatient CPT - 4: CTA Coronary Arteries - 86516 (Please add FFR Charges ifPerformed)Nuclear Event ID:[id number] Order ID: [id number] Reason for Study:CAD Procedures: CT Prospective (% Phases)Race: C SUMMARY:-- Technique: IV contrast was administered and sequential 0.[address] cutswere obtained through the chest using the Siemens Next Generation Danceom Force CTscanner. Image post-processing consisting of multiplanar and 3Dreconstructions were performed using the [employer]rec[employer] Pharmaceuticalsworkstation. Interactive image viewing, volumetric display andanalysis were also performed. 3D coronary artery calcium scoring wasdone in accordance with a standardized protocol. CTA RESULTSTechnically difficult study due to motion, calcium and pacer mettalicartifact. Left Main: A normal sized 4.5 artery whicharises posteriorly from the left sinusof Valsalva and divides into the left anterior descending, circumflex,and ramus coronary arteries. Moderate calcified atheroscleroticplaque is present with mild (25-49%) stenosis.Left anterior descending (LAD): A normal sized 3.5 mm artery which wraps around the apex and gives offone diagonal branch. Moderate predominantly calcified atheroscleroticplaque is present in the proximal and mid segments with mild (25- 49%)stenosis in the mid segment. The first diagonal is a 2.0 mm bifurcating artery which has mildpredominantly calcified atherosclerotic plaque present but with nosignificant stenosis. Left circumflex: A normal sized 3.5 mm non-dominant artery which arises normally fromthe left main and gives off two major obtuse marginal arteries beforeterminating in the AV groove. Moderate predominantly calcifiedatherosclerotic plaque is present in the proximaland mid segments but without significant stenosis.The first obtuse marginal is a 3.5 mm artery which has moderatecalcified atherosclerotic plaque present with 50% stenosis. The second obtuse marginal is a 2.0 mm artery which has mildpredominantly calcified atherosclerotic plaque present but nosignificant stenosis. Right coronary artery: A normal sized 3.5 mm dominant artery which arises normally fromtheright sinus of Valsalva and gives off several right ventricularbranches, the posterior descendingartery and the posterolateralartery. Moderate predominantly calcified atherosclerotic plaque ispresent in the proximal and mid segments with 50% stenosis in the midsegment.The posterior descending joellen 2.5 mm bifurcating artery which has mildcalcified atherosclerotic plaque present but no significant stenosis. The posterolateral is a 1.5 mm artery which has mild calcifiedatherosclerotic plaque present but no significant stenosis. Ramus: _ A 1.5 mm artery which has no significant calcifiedatherosclerotic plaque present but with no significant stenosis. Stents: None. Bypass Grafts: None. Pulmonary Arteries:Normal pulmonary artery sizes with no proximal thrombus identified.Left Atrial and Pulmonary Vein Dimensions:Left atrial size (A-P diameter) 4.8 cm.Left atrial volume 93 ml.Normal PV anatomy There is no evidence of the left atrial appendage clot.Left Ventricular Valve Morphology/Function:LV septal wall thickness 9 mm.Aortic valve is tri-leaflet Mitral valve is normal Right Ventricular Valve Morphology/Function:Right atrial and ventricular pacemaker leads are presentThoracic Aortic Dimensions:No aortic aneurysm or dissection is seen. Aortic root 3.4 cm.Sinotubular junction 2.8 cm.Mid ascending aorta 3.3 cm.Descending thoracic aorta 2.3 cm.Pericardium:No pericardial effusion or pericardial thickening.Non-Cardiac Findings:Large hiatal herniaCongestive changes in bilateral lung martinez.CONCLUSIONTechnically difficult study due to motion, calcium and pacer metallicartifact. Coronary CTA shows severe calcified coronary atherosclerosis with milddegrees of stenosis in the mid LAD territory a nd moderate (50%)stenosis in OM1 and mid RCA. Visual LVEF and wall motion are normal.Large hiatal herniaNormal PV anatomy. There is no evidence of the left atrial appendage clot.Please refer to the separate radiology report in Epic ofnon-cardiovascular findings. STUDY QUALITYThe study quality is exce llent.COMMENTSNone. FINDINGS: Signed 02/06/2020 3:54:00 Milan Santana MDInterface, Radiology Results In - 02/07/2020 6:51 PM CDT Nuclear Cardiology and Cardiac CT [address] [place] [address] Department Number: [phone] CTA Coronary Arteries ReportPat.Name: BENITEZ ASIF Pat.ID: [id number] .Date: 02/06/2020 Refer.MD: PATTI ROCA MD Exam Time: 12:50:00 PM Study Type:CTA Coronary Arteries Height: 60in Weight: 165lb BSA: 1.72 m2 Age: 2 1935,84Y Sex: FEMALE BP: 175/86 HR: 64 bpm Nuclear Tech:ORA Johnson(Ruddy)(CT)Pat. Stat.:Inpatient CPT - 4: CTA Coronary Arteries - 03564 (Please add FFR Charges ifPerformed)Nuclear Event ID:[id number] Order ID: [id number] Reason for Study:CAD Procedures: CT Prospective (% Phases)Race: C SUMMARY: Technique: IV contrast was administered and sequential 0.[address] cutswere obtained through the chest using the Siemens Somatom Force CTscanner. Image post-processing consisting of multiplanar and 3Dreconstructions were performed using the [employer]paceworkstation. Interactive image viewing, volumetric display andanalysis were also performed. 3D coronary artery calcium scoring wasdone in accordance with a standardized protocol. CTA RESULTSTechnically difficult study due to motion, calcium and pacer mettalicartifact. Left Main: A normal sized 4.5 artery which arises posteriorly from the left sinusof Valsalva and divides into the left anterior descending, circumflex,and ramus coronary arteries. Moderate calcified atheroscleroticplaque is present with mild (25- 49%) stenosis.Left anterior descending (LAD): A normal sized 3.5 mm artery which wraps around the apex and gives offone diagonal branch. Moderate predominantly calcified atheroscleroticplaque is present in the proximal and mid segments with mild (25-49%)stenosis in the mid segment. The first diagonal is a 2.0 mm bifurcating artery which has mildpredominantly calcified atherosclerotic plaque present but with nosignificant stenosis. Left circumflex: A normal sized 3.5 mm non-dominant artery which arises normally fromthe left main and gives off two major obtuse marginal arteries beforeterminating in the AV groove. Moderate predominantly calcifiedatherosclerotic plaque is present in the proximal and mid segments but without significant stenosis.The first obtuse marginal is a 3.5 mm artery which has moderatecalcified atherosclerotic plaque present with 50% stenosis. The second obtuse marginal is a 2.0 mm artery which has mildpredominantly calcified atherosclerotic plaque present but nosignificant stenosis. Right coronary artery: A normal sized 3.5 mm dominant artery which arises normally from theright sinus of Valsalva and gives off several right ventricularbranches, the posterior descending artery and the posterolateralartery. Moderate predominantly calcified atherosclerotic plaque ispresent in the proximal and mid segments with 50% stenosis in the midsegment.The posterior descending is a 2.5 mm bifurcating artery which has mildcalcified atherosclerotic plaque present but no significant stenosis. The posterolateral is a 1.5 mm artery which has mild calcifiedatherosclerotic plaque present but no significant stenosis. Ramus: _ A1.5 mm artery which has no significant calcifiedatherosclerotic plaque present but with no significant stenosis. Stents: None. Bypass Grafts: None. Pulmonary Arteries:Normal pulmonary artery sizes with no proximal thrombus identified.Left Atrial and Pulmonary Vein Dimensions:Left atrial size (A-P diameter) 4.8 cm.Left atrial volume 93 ml.Normal PV anatomy There is no evidence of the left atrial appendage clot.Left Ventricular Valve Morphology/Function:LV septal wall thickness 9 mm.Aortic valve is tri-leaflet Mitral valve is normal Right Ventricular Valve Morphology/Function:Right atrial and ventricular pacemaker leads are presentThoracic Aortic Dimensions:No aortic aneurysm or dissection is seen. Aortic root 3.4 cm.Sinotubular junction 2.8 cm.Mid ascending aorta 3.3 cm.Descending thoracic aorta 2.3 cm.Pericardium:No pericardial effusion or pericardial thickening.Non-Cardiac Findings:Large hiatal herniaCongestive changes in bilateral lung martinez.CONCLUSIONTechnically difficult study due to m otion, calcium and pacer metallicartifact. Coronary CTA shows severe calcified coronary atherosclerosis with milddegrees of stenosis in the mid LAD territory and moderate (50%)stenosis in OM1 and mid RCA. Visual LVEF and wall motion are normal.Large hiatal herniaNormal PV anatomy. There is no evidence of the left atrial appendage clot.Please refer to the separate radiology report in [facility] ofnon-cardiovascular findings. STUDY QUALITYThe study quality is excellent.COMMENTSNone. FINDINGS: Signed 02/06/2020 3:54:00 [facility] lower extremity 2020-02-04 23:00:00 Vascular Ultrasound Laboratory Lower Extremity Venous Report [id number] [place] [address] Pat.Name: BENITEZ ASIF Pat.ID: [id number] .Date: 02/04/2020 Refer.MD: CARON VALLE MD Exam Time: 2:31:00 PM Study Type:LE Venous Height: 60in Weight: 170lb BSA: 1.74 m2 Age: 3 1935,84Y Sex: FEMALE Sonogrphr: Jaylin Parker, WILNER, Zaire Shah, RDMS, RVTPat. Stat.:Inpatient Room: [address] Tape Vol: /, CPT - 4: [id number] Event ID:[id number] Order ID: [id number] Reason for Study:Patient has ahistory of cough, shortness of breath,leg edema, restless leg syndrome, heparin for DVT prophylaxis,CXRshowed mild vascular congestion.Procedures: Colorflow, Grayscale/2D, Pulsed wave DopplerRace: C SUMMARY: ----DUPLEX SCAN OBSERVATIONS Deep Veins Superficial Veins Right Left Right Left GSV (prox) Normal NormalCFV Normal Normal (above knee)Femoral Normal Normal GSV (dist) Normal NormalProfunda Normal Normal (below knee)Popliteal Normal NormalPT (prox) Normal Normal SSV Normal NormalPT (dist) Normal Normal Peroneal Normal Normal Gastrocs Normal Normal RIGHT: There is normal compressibility with no evidence of echogenicmaterial noted within the lumen of the visualized veins. Colorflowand Doppler signals are normal.LEFT: There is normal compressibility with no evidence ofechogenic material noted within the lumen of the visualized veins. Colorflow and Doppler signals are normal.PRELIMINARY FINDINGS1. Normal venous duplex exam of the visualized veins. 2. Technically difficult exam due to patient's restless leg syndrome.PHYSICIAN INTERPRETATION Venous examination of the both lower extremiti es demonstrated noevidence of venous thrombosis in the visualized veins. Normalcompressibility and augmentation of all veins visualized. FINDINGS: Signed 02/04/2020 06:00 PMEh Cabello MD, RPVIIntwhidbeyhealth [facility], Radiology Results In - 02/04/2020 6:01 PM CDT Vascular Ultrasound Laboratory Lower ExtremityVenous Report [id number] [address], [place] [address] Pat.Name: BENITEZ ASIF Pat.ID: [id number] .Date: 02/04/2020 Refer.MD: CARON VALLE MD Exam Time: 2:31:00 PM Study Type:LE Venous Height: 60in Weight: 170lb BSA: 1.74 m2 Age: 2 1935,84Y Sex: FEMALE Sonogrphr: Jaylin Parker RVT, Zaire Shah, RDMS, RVTPat. Stat.:[address] T[address] Vol: ELOISA, [facility] - 4: [id number] Echo Event ID:[id number] Order ID: [id number] Reason for Study:Patient has a history of cough, shortness of breath,leg edema, restless leg syndrome, heparin for DVT prophylaxis, CXRshowed mild vascular congestion.Procedures: Colorflow, Grayscale/2D, Pulsed wave DopplerRace: C SUMMARY: DUPLEX SCAN OBSERVATIONS Deep Veins Superficial Veins Right Left Right Left GSV (prox) Normal NormalCFV Normal Normal (above knee)Femoral Normal Normal GSV (dist) Normal NormalProfunda Normal Normal (below knee)Popliteal Normal NormalPT (prox) Normal Normal SSV Normal NormalPT (dist) Normal Normal Peroneal Normal Normal Gastrocs Normal Normal RIGHT: There is normal compressibility with no evidence of echogenicmaterial noted within the lumen of the visualized veins. Colorflowand Doppler signals are normal.LEFT: There is normal compressibility with no evidence ofechogenic material noted within the lumen of the visualized veins. Colorflow and Doppler signals are normal.PRELIMINARY FINDINGS1. Normal venous duplex exam of the visualized veins. 2. Technically difficult exam due to patient's restless leg syndrome.PHYSICIAN INTERPRETATION Venous examination of the both lower extremities demonstrated noevidence of venous thrombosis in the visualized veins. Normalcompressibility and augmentation of all veins visualized. FINDINGS: Signed 02/04/2020 06:00 Yuniel Cabello MD, [facility] Transthoracic Echocardiogram Complete, (w Contrast, Strain and 3D if needed) 2020-02-04 14:57:00 Echocardiography Report [id number] [address] Pat.Name: CRISTINA ASIF Pat.ID: [id number] .Date: 02/04/2020 Refer.MD: CARON VALLE MD Exam Time: 8:11:00 AM Study Type:Routine Echo Height: 69in Weight: 170lb BSA: 1.93 m2 Age: 2 1935,84Y Sex: FEMALE BP: 183/80 HR: 67 bpm Sonogrphr: Rylee aHas, RCS, RVS Pat. Stat.:Inpatient Room: [facility] Study Status:Final Echo Event ID:[id number] Order ID: [id number] Reason for Study:Heart Failure; SOB, abn CXR, heart failure suspectedHistory / Clinical:Stroke, COPD, Coronary Artery Disease,Hyperlipidemia, Hypertension, TIAProcedures: 2D Echo, Colorflow Doppler, Strain, PortableRace: C SUMMARY: Estimated EF is 65- 69%RV systolic function is normal.Mild aortic regurgitation.LV filling pressure is elevated.Estimated PA systolic pressureis at least 34 mmHg, assuming a meanRAP of 5 mmHg. FINDINGS:----- LV: LV size is normal. Normal average LV global longitudinal strain at -21%. LV EF is normal. Overall wall motion is normal. Estimated EF is 65-69%RV: RV size is normal. RV systolic function is normal.LA: LA volume is severely enlarged.RA: RA volume is normal. A pacemaker wire is seen.AO: Aortic root diameter is normal.GARLAND: No pericardial effusion.AV: Focal calcification of AV leaflets. Mild aortic regurgitation. MV: No structural MV abnormalities noted. A trace of mitral regurgitation.PV: No structural PV abnormalities noted.TV: No structural TV abnormalities noted.Roman: LV relaxation is impaired. LV filling pressure is elevated.Other: Estimated PA systolic pressure is at least 34 mmHg, assuming a mean RAP of 5 mmHg. MARBIN SUREMENTS: 2DParasternal Long [place] Ao An 2 cm LVPWd 0.91 cm Ao Rtd 3.1 cm Index 1.6 cm/m2 LA Ds 3.3 cm IVSd 0.82 cm RWT 0.38 LVIDd 4.8 cm Index 2.5 cm/m2 LV Mass 139 g (87-129)* LVIDs 2.8 cm LVOT 1.8 cm LV%fs 42 % Left Ventricle LVM Index 72 g/m2 LA Sng Plane LA Area 27 cm2 (8.8-23.4)* LA Vol 93 ml Index 48 ml/m2 LA LngAx 6.7 cmRA Sng Plane RA Vol 70 ml Index 36 ml/m2 RA LngAx 6.5 cm RA Area 23 cm2 (8.3-19.5)*Ascending aorta Asce Dim 3.3 cm LVOT LVOT Area 2.5 cm2 DOPPLERLVOT Stroke Vol & Cardiac Out LVOT TVI 33 cm HR 67 bpm LVOT LVOT SV 84 ml LVOT CO 5.6 l/min SVi 44 ml/m2 LVOT CI 2.9 l/m/m2TV Pressure Gradient TV PkVel 267 cm/s TV PG 29 mmHg Signed 02/04/2020 09 :57 Brina Fierro MDInterface, Radiology Results In - 02/04/2020 9:58 AM CDT Echocardiography Report [id number] [address] Pat.Name: BENITEZ ASIF Pat.ID: [id number] .Date: 02/04/2020 Refer.MD: CARON VALLE MD Exam Time: 8:11:00 AM Study Type:Routine Echo Height: 69in Weight: 170lb BSA: 1.93 m2 Age: 2 1935,84Y Sex: FEMALE BP: 183/80 HR: 67 bpm Sonogrphr: ROSALIE Salas, RVSPat. Stat.:Inpatient Room: [facility] Study Status:Final Echo Event ID:[id number] Order ID: [id number] Reason for Study:Heart Failure; SOB, abn CXR, heart failure suspectedHistory / Clinical:Stroke, COPD, Coronary Artery Disease,Hyperlipidemia, Hypertension, TIAProcedures: 2D Echo, Colorflow Doppler, Strain, PortableRace: C SUMMARY: Estimated EF is 65-69%RV systolic function is normal.Mild aortic regurgitation.LV filling pressure is elevated.Estimated PA systolic pressure is at least 34 mmHg, assuming a meanRAP of 5 mmHg.--------- FINDINGS: LV: LV size is normal.Normal average LV global longitudinal strain at - 21%. LV EF is normal. Overall wall motion is normal. Estimated EF is 65-69%RV: RV size is normal. RV systolic function is normal.LA: LA volume is severely enlarged.RA: RA volume is normal. A pacemaker wire is seen.AO: Aortic root diameter is normal.GARLAND: No pericardial effusion.AV: Focal calcificationof AV leaflets. Mild aortic regurgitation. MV: No structural MV abnormalities noted. A trace of mitral regurgitation. PV: No structural PV abnormalities noted.TV: Nostructural TV abnormalities noted.Roman: LV relaxation is impaired. LV filling pressure is elevated.Other: Estimated PA systolic pressure is at least 34 mmHg, assuming a mean RAP of 5 mmH g. MEASUREMENTS: ------- 2DParasternal Long [place] Ao An 2 cm LVPWd 0.91 cm Ao Rtd 3.1 cm Index 1.6 cm/m2 LA Ds 3.3 cm IVSd 0.82 cm RWT 0.38 LVIDd 4.8 cm Index 2.5 cm/m2 LV Mass 139 g (87-129)* LVIDs 2.8 cm LVOT 1.8 cm LV%fs 42 % Left Ventricle LVM Index 72 g/m2 LA Sng Plane LA Area 27 cm2 (8.8-23.4)* LA Vol 93 ml Index 48 ml/m2 LA LngAx 6.7 cm RA Sng Plane RA Vol 70 ml Index 36 ml/m2 RA LngAx 6.5 cm RA Area 23 cm2 (8.3- 19.5)*Ascending aorta Asce Dim 3.3 cm LVOT LVOT Area 2.5 cm2 DOPPLERLVOT Stroke Vol & Cardiac Out LVOT TVI 33 cm HR 67 bpm LVOT LVOT SV 84 ml LVOT CO 5.6 l/min SVi 44 ml/m2 LVOT CI 2.9 l/m/m2TV Pressure Gradient TV PkVel 267 cm/s TV PG 29 mmHg Signed 02/04/2020 09:57 [facility] RNA [Presence] in Respiratory specimen by JOHN with probe [id number] 20:02:57 Test Item Value Reference Range Interpretation Comments SARS-CoV-2 (COVID-19) RNA Not detected Not-Detected [Presence] in Respiratory specimen by JOHN with probe detection (test code = 85277-2) SARS-CoV-2 (COVID-19) RNA [Presence] in Respiratory specimen by JOHN with probe [id number] 00:30:58 Test Item Value Reference Range Interpretation Comments SARS-CoV-2 (COVID-19) RNA Not detected Not-Detected [Presence] in Respiratory specimen by JOHN with probe detection (test code = 43338-1)
--- NOTE | 2021-01-15 10:40 | RAD REPORT ---
EXAM DESCRIPTION: CT - Ct Stroke Brain Wo Cont - 01/15/2021 10:26 am CLINICAL HISTORY: WEAKNESS COMPARISON: Head Brain Wo Cont dated 05/15/2018 TECHNIQUE: Axial 5 millimeter thick images of the head were obtained without IV contrast. All CT scans are performed using dose optimization technique as appropriate and may include automated exposure control or mA/KV adjustment according to patient size. FINDINGS: No intracranial hemorrhage, mass, or cerebral edema. No acute cortical based infarction id entified. No cortical edema or sulcal effacement. No extra-axial fluid collections. Price matter-whit e matter differentiation is preserved.Advanced atrophy changes are present with ventricles in proport ion. Ventricular size has not change from 2018. Patient also has advanced chronic ischemic change thr oughout the cerebral white matter and to a lesser degree in the thalamus, basal ganglia and brainstem tissues. Intracranial findings are not clearly different from 2018. No globe or orbital content abnormality seen. Visualized portions of the mastoid air cells, paranasal sinuses, and orbits are unremarkable. Findings telephoned to Batsheva Deras at 10:36 a.m. IMPRESSION: Advanced atrophy and chronic ischemic change similar to 2018. No acute intracranial find ing. Chronic ischemic changes can mask nonhemorrhagic acute infarction. MR brain followup can be obtained if there is ongoing concern for acute ischemia.
--- NOTE | 2021-01-15 11:07 | EKG ---
Test Date: 2021-01-15 Test Time: 10:38:02 [employer] Processor: VALDEMAR MEASUREMENT RESULTS: Intervals: Rate: 67 UT: 190 QRSD: 80 QT: 466 QTc: 492 [place]: P: 20 UT: 190 QRS: -21 T: 40 INTERPRETIVE STATEMENTS: Atrial-paced rhythm with occasional sinus complexes and premature atrial complexes Prolonged QT Abnormal ECG Compared to ECG 08/06/2018 14:30:10 Atrial premature complex(es) now present Prolonged QT interval now present Sinus rhythm no longer present Myocardial infarct finding no longer present Electronically Signed On 01-15-21 11:07:20 CDT by Ceferino Rothman
--- NOTE | 2021-01-15 11:16 | RAD REPORT ---
EXAM DESCRIPTION: RAD - Chest Single View - 01/15/2021 10:46 am CLINICAL HISTORY: stroke workup COMPARISON: May 2019 TECHNIQUE: AP portable chest image was obtained 01/15/2021 10:46 am . FINDINGS: Scattered fibrotic lung changes are present. Right hemithorax volume is reduced compared t o prior imaging resulting in crowded lung parenchymal structures. No dense consolidation. Minimal inf iltrate in the right midlung field is not entirely excluded. Heart size is mildly enlarged with ru l vasculature. Pacemaker is in place. Moderate-size hiatal hernia is present. No measurable pleural e ffusion and no pneumothorax. No acute bony abnormality seen. No acute aortic findings suspected. IMPRESSION: Scattered fibrotic lung changes are present. Reduced right hemithorax lung volume limits assessment. A minimal right midlung field infiltrate cannot be excluded. Mild cardiomegaly without findings for failure.
[2021-01-15 11:32] LABS: Absolute Lymphocytes (CBC) 0.7 K/uL (0.7-4.9); Basophils % 0.2 % (0-1.3); Hematocrit 34.5 % (36.0-45.0); Lymphocytes % 7.2 % (15.3-44.8); MPV 8.8 fL (7.6-11.3); RBC Red Blood Cell Count 3.98 M/uL (3.86-4.86)
[2021-01-15 11:36] LABS: Protime INR 1.14
--- NOTE | 2021-01-15 13:13 | EDPHYS ---
Physician Documentation [facility] Name: Olga Arndt Age: 85 yrs Sex: Female : 1935 Arrival Date: 01/15/2021 Time: 10:08 Bed 25 Private MD: ED Physician Arnel Martinez HPI: 01/15 13:02 This 85 yrs old Female presents to ER via EMS with complaints of General kdr Weakness. 13:02 Patient has been up to go to the bathroom when she was too weak to get there. She kdr indicated that she slipped out of bed onto the floor. Is unclear exactly how long she had been in that state. She presents to the ED with global weakness. She has no other focal complaints. The daughter seems concerned about her decreased mental status overall. He does have baseline dementia. Onset: The symptoms/episode began/occurred this morning. Severity of symptoms: At their worst the symptoms were mild in the emergency department the symptoms are unchanged. The patient has not experienced similar symptoms in the past. Patient was discharged from [facility] about 4 days ago. She had been in a rehab center for a few days and then back to [facility]. That was her origin this morning.. Historical: - Allergies: 10:20 CALCITONIN; vg1 10:20 Cephalexin; vg1 10:20 Diphenhydramine; vg1 10:20 Methylprednisolone; vg1 10:20 Raloxifene; vg1 10:20 Nifedipine; vg1 - Home Meds: 10:20 amlodipine oral [Active]; aspirin 81 mg Oral chew 1 tab once daily [Active]; vg1 atorvastatin Oral [Active]; carvedilol Oral [Active]; Clonazepam Oral [Active]; gabapentin Oral [Active]; GALAMANTINE [Active]; hydroxychloroquine Oral [Active]; leflunomide Oral [Active]; levothyroxine oral [Active]; memantine Oral [Active]; Myrbetriq Oral [Active]; NEVPRO [Active]; PRAMPIEXOLE [Active]; Ramipril Oral [Active]; Trazodone Oral [Active]; ubiquinol-vitamin B95-wkljn acid-resveratrol Oral [Active]; - PMHx: 10:20 Dementia; Pacemaker; restless leg syndrome; Hypertensive disorder; vg1 - Immunization history:: Adult Immunizations up to date. - Social history:: Smoking status: Patient denies any tobacco usage or history of. ROS: 13:02 Constitutional: Negative for fever, chills, and weight loss, Eyes: Negative for injury, kdr pain, redness, and discharge, ENT: Negative for injury, pain, and discharge, Neck: Negative for injury, pain, and swelling, Cardiovascular: Negative for chest pain, palpitations, and edema, Respiratory: Negative for shortness of breath, cough, wheezing, and pleuritic chest pain, Abdomen/GI: Negative for abdominal pain, nausea, vomiting, diarrhea, and constipation, Back: Negative for injury and pain, : Negative for injury, bleeding, discharge, and swelling, MS/Extremity: Negative for injury and deformity, Skin: Negative for injury, rash, and discoloration, Psych: Negative for depression, anxiety, suicide ideation, homicidal ideation, and hallucinations, Allergy/Immunology: Negative for hives, rash, and allergies, Endocrine: Negative for neck swelling, polydipsia, polyuria, polyphagia, and marked weight changes, Hematologic/Lymphatic: Negative for swollen nodes, abnormal bleeding, and unusual bruising. 13:02 Neuro: Positive for altered mental status, weakness, Decreased mentation, Negative for seizure activity, speech changes. Exam: 13:02 Constitutional: This is a well developed, well nourished patient who is awake, alert, kdr and in mild distress. Head/Face: Normocephalic, atraumatic. Eyes: Pupils equal round and reactive to light, extra-ocular motions intact. Lids and lashes normal. Conjunctiva and sclera are non-icteric and not injected. Cornea within normal limits. Periorbital areas with no swelling, redness, or edema. Neck: Trachea midline, no thyromegaly or masses palpated, and no cervical lymphadenopathy. Supple, full range of motion without nuchal rigidity, or vertebral point tenderness. No Meningismus. Chest/axilla: Normal chest wall appearance and motion. Nontender with no deformity. No lesions are appreciated. Cardiovascular: Regular rate and rhythm with a normal S1 and S2. No gallops, murmurs, or rubs. Normal PMI, no JVD. No pulse deficits. Respiratory: Lungs have equal breath sounds bilaterally, clear to auscultation and percussion. No rales, rhonchi or wheezes noted. No increased work of breathing, no retractions or nasal flaring. Abdomen/GI: Soft, non-tender, with normal bowel sounds. No distension or tympany. No guarding or rebound. No evidence of tenderness throughout. Back: No spinal tenderness. No costovertebral tenderness. Full range of motion. Skin: Warm, dry with normal turgor. Normal color with no rashes, no lesions, and no evidence of cellulitis. MS/ Extremity: Pulses equal, no cyanosis. Neurovascular intact. Full, normal range of motion. Psych: Awake, alert, with orientation to person, place and time. Behavior, mood, and affect are within normal limits. 13:02 Neuro: Orientation: appropriate for stated age, Mentation: able to follow commands, slow to respond, Patient easily arouses and responds appropriately to questions. 13:02 Neuro: Motor: strength is 4/5 in the right arm, Strength is 1/5 in the left arm, kdr right leg and left leg. 14:05 ECG was reviewed by the Attending Physician. kdr Vital Signs: 10:14 BP 116 / 57; Pulse 65; Resp 16; Temp 97.6(O); Pulse Ox 95% ; Weight 70.31 kg; Height 4 vg1 ft. 11 in. (149.86 cm); Pain 0/10; 10:15 BP 103 / 59; Pulse 66; Resp 14; Pulse Ox 96% ; vg1 11:00 BP 119 / 54; Pulse 67; Resp 18; Pulse Ox 96% ; vg1 11:30 BP 125 / 62; Pulse 65; Resp 14; Pulse Ox 96% ; vg1 12:00 BP 116 / 61; Pulse 67; Resp 16; Pulse Ox 96% on R/A; vg1 12:30 BP 114 / 78; Pulse 65; Resp 16; Pulse Ox 96% on R/A; vg1 13:00 BP 122 / 75; Pulse 63; Resp 16; Pulse Ox 96% on R/A; vg1 13:30 BP 121 / 58; Pulse 67; Resp 20; Pulse Ox 95% on R/A; vg1 14:00 BP 124 / 65; Pulse 64; Resp 16; Pulse Ox 95% on R/A; vg1 14:30 BP 114 / 65; Pulse 71; Resp 18; Pulse Ox 95% on R/A; vg1 15:00 BP 111 / 54; Pulse 70; Resp 16; Pulse Ox 95% on R/A; vg1 15:30 BP 109 / 53; Pulse 69; Resp 18; Pulse Ox 95% on R/A; vg1 16:00 BP 113 / 62; Pulse 64; Resp 16; Pulse Ox 95% on R/A; vg1 16:30 BP 108 / 74; Pulse 64; Resp 16; Pulse Ox 95% on R/A; vg1 17:00 BP 118 / 50; Pulse 66; Resp 16; Pulse Ox 96% on R/A; vg1 17:30 BP 125 / 60; Pulse 71; Resp 18; Pulse Ox 95% ; vg1 18:00 BP 127 / 54; Pulse 66; Resp 20; Pulse Ox 94% on R/A; vg1 10:14 Body Mass Index 31.31 (70.31 kg, 149.86 cm) vg1 MDM: 10:10 Patient medically screened. kb 12:59 Data reviewed: vital signs, nurses notes. Counseling: I had a detailed discussion with kdr the patient and/or guardian regarding: the historical points, exam findings, and any diagnostic results supporting the discharge/admit diagnosis, lab results, radiology results, the need to transfer to another facility. ED course: I spoke with Dr. Roca, he indicated that he would call the transfer center at [facility] to help facilitate a transfer to that facility.. 01/15 10:15 Order name: Basic Metabolic Panel; Complete Time: 12:58 kb 01/15 10:15 Order name: CBC with Diff; Complete Time: 12:58 kb 01/15 10:15 Order name: Protime (+inr); Complete Time: 12:58 kb 01/15 10:15 Order name: Ptt, Activated; Complete Time: 12:58 kb 01/15 12:59 Order name: Urine Culture kdr 01/15 10:15 Order name: CT Stroke Brain w/o Contrast; Complete Time: 12:58 kb 01/15 10:15 Order name: Stroke CXR 1 View; Complete Time: 12:58 kb 01/15 10:15 Order name: EKG; Complete Time: 10:16 kb 01/15 10:15 Order name: Accucheck; Complete Time: 11:22 kb 01/15 10:15 Order name: Cardiac monitoring; Complete Time: 11:22 kb 01/15 10:15 Order name: EKG - Nurse/Tech; Complete Time: 11:22 kb 01/15 13:31 Order name: Urine Dipstick-Ancillary; Complete Time: 13:54 EDMS 01/15 15:09 Order name: SARS-COV-2 RT PCR; Complete Time: 18:13 EDMS 01/15 10:15 Order name: IV Saline Lock; Complete Time: 11:19 kb 01/15 10:15 Order name: Labs collected and sent; Complete Time: 11:19 kb 01/15 10:15 Order name: NPO; Complete Time: 11:22 kb 01/15 10:15 Order name: O2 Per Protocol; Complete Time: 11:22 kb 01/15 10:15 Order name: O2 Sat Monitoring; Complete Time: 11:22 kb 01/15 10:15 Order name: Stroke Swallow Screen; Complete Time: 14:46 kb 01/15 12:59 Order name: Urine Dipstick-Ancillary (obtain specimen); Complete Time: 13:29 kdr EC:05 Rate is 67 beats/min. Rhythm is regular, Paced with No ectopy. QRS [place] is Normal. [place] kdr interval is normal. QRS interval is normal. Clinical impression: No evidence of ischemia and Paced rhythm. Administered Medications: No medications were administered Disposition Summary: 01/15/21 13:12 Transfer Ordered Transfer Location: [facility] kdr Reason: Higher level of care kdr Condition: Stable kdr Problem: new kdr Symptoms: have improved kdr Accepting Physician: RADHA(01/15/21 19:11) vg1 Diagnosis - Weakness kdr Forms: - Medication Reconciliation Form kdr - SBAR form kdr Signatures: Dispatcher [employer] EDSD Jackie Deras, ROAD CLEANER-C ROAD CLEANER-Arnel Joy MD MD kdr Behzad Cervantes ROAD CLEANER-C ROAD CLEANER-Phan1 Diandra Villalta, RN RN vg1 Corrections: (The following items were deleted from the chart) 14:07 13:10 CORONAVIRUS+ ordered. EDSD EDSD 19:11 13:12 IM kdr vg1
--- NOTE | 2021-01-15 13:13 | ER ---
Nurse's Notes [facility] Name: Olga Arndt Age: 85 yrs Sex: Female : 1935 Arrival Date: 01/15/2021 Time: 10:08 Bed 25 Private MD: Diagnosis: Weakness Presentation: 01/15 10:14 Chief complaint: EMS states: Pt was released from [facility] yesterday for Generalized 1 Weakness and repeated falls. Today pt stated slid down, stated did not fall or hit head. EMS stated upon arrival pt asked for a cup of coffee, gave pt a cup and pt was unable to grasp it. Pt has Non Covid Pneumonia in the Right Lung as well. Coronavirus screen: Client denies travel out of the [place] in the last 14 days. Pt was tested Negative yesterday at [facility]. Ebola Screen: Patient negative for fever greater than or equal to 101.5 degrees Fahrenheit, and additional compatible Ebola Virus Disease symptoms. Initial Sepsis Screen: Does the patient meet any 2 criteria? No. Patient's initial sepsis screen is negative. Does the patient have a suspected source of infection? No. Patient's initial sepsis screen is negative. Risk Assessment: Do you want to hurt yourself or someone else? Patient reports no desire to harm self or others. Onset of symptoms was January 15, 2021. 10:14 Method Of Arrival: EMS: [facility] vg1 10:14 Acuity: JOSELITO 3 vg1 Triage Assessment: 10:23 General: Appears in no apparent distress. comfortable, Behavior is calm, cooperative. vg1 Pain: Denies pain. EENT: No signs and/or symptoms were reported regarding the EENT system. Neuro: Level of Consciousness is awake, alert, obeys commands, Oriented to person, place, time, situation, Senior Commissary Agent are equal bilaterally Speech is normal, Facial symmetry appears normal. Cardiovascular: Cardiovascular: Patient's skin is warm and dry. Respiratory: Airway is patent Respiratory effort is even, unlabored. GI: No signs and/or symptoms were reported involving the gastrointestinal system. : No signs and/or symptoms were reported regarding the genitourinary system. Derm: Skin is intact, Skin is pale. Musculoskeletal: Capillary refill is > 3 seconds. Historical: - Allergies: 10:20 CALCITONIN; vg1 10:20 Cephalexin; vg1 10:20 Diphenhydramine; vg1 10:20 Methylprednisolone; vg1 10:20 Raloxifene; vg1 10:20 Nifedipine; vg1 - Home Meds: 10:20 amlodipine oral [Active]; aspirin 81 mg Oral chew 1 tab once daily [Active]; vg1 atorvastatin Oral [Active]; carvedilol Oral [Active]; Clonazepam Oral [Active]; gabapentin Oral [Active]; GALAMANTINE [Active]; hydroxychloroquine Oral [Active]; leflunomide Oral [Active]; levothyroxine oral [Active]; memantine Oral [Active]; Myrbetriq Oral [Active]; NEVPRO [Active]; PRAMPIEXOLE [Active]; Ramipril Oral [Active]; Trazodone Oral [Active]; ubiquinol-vitamin O80-zbawq acid-resveratrol Oral [Active]; - PMHx: 10:20 Dementia; Pacemaker; restless leg syndrome; Hypertensive disorder; vg1 - Immunization history:: Adult Immunizations up to date. - Social history:: Smoking status: Patient denies any tobacco usage or history of. Screenin:22 Abuse screen: Denies threats or abuse. Nutritional screening: No deficits noted. vg1 Tuberculosis screening: No symptoms or risk factors identified. Fall Risk Fall in past 12 months (25 points). No secondary diagnosis (0 pts). IV access (20 points). Ambulatory Aid- None/Bed Rest/Nurse Assist (0 pts). Gait- Weak (10 pts.). Mental Status- Oriented to own ability (0 pts). Total Toscano Fall Scale indicates High Risk Score (45 or more points). Fall prevention measures have been instituted. Side Rails Up X 2 1:1 Attendant Assigned Family Present and informed to notify staff if the need to leave the bedside. Assessment: 10:15 Reassessment: SEE TRIAGE. vg1 11:52 Reassessment: Patient appears in no apparent distress at this time. No changes from vg1 previously documented assessment. Patient and/or family updated on plan of care and expected duration. Pain level reassessed. Patient denies pain at this time. 12:54 Reassessment: Patient appears in no apparent distress at this time. Patient and/or vg1 family updated on plan of care and expected duration. Pain level reassessed. Patient is alert, oriented x 3, equal unlabored respirations, skin warm/dry/pink. Pt states 'im feeling better than when I got here and I can move my legs better too' Provider notified. 13:31 Reassessment: Patient appears in no apparent distress at this time. Patient and/or vg1 family updated on plan of care and expected duration. Pain level reassessed. Patient is alert, oriented x 3, equal unlabored respirations, skin warm/dry/pink. Patient denies pain at this time. 14:47 Reassessment: Patient appears in no apparent distress at this time. Patient and/or vg1 family updated on plan of care and expected duration. Pain level reassessed. Patient is alert, oriented x 3, equal unlabored respirations, skin warm/dry/pink. Pt sitting up in bed drinking coffee Patient denies pain at this time. 16:00 Reassessment: Patient appears in no apparent distress at this time. Patient and/or vg1 family updated on plan of care and expected duration. Pain level reassessed. Patient is alert, oriented x 3, equal unlabored respirations, skin warm/dry/pink. Patient denies pain at this time. 17:08 Reassessment: Patient appears in no apparent distress at this time. No changes from 1 previously documented assessment. 18:28 Reassessment: Patient appears in no apparent distress at this time. No changes from 1 previously documented assessment. Pt resting with eyes closed. Family updated on ETA of EMS. Vital Signs: 10:14 BP 116 / 57; Pulse 65; Resp 16; Temp 97.6(O); Pulse Ox 95% ; Weight 70.31 kg; Height 4 vg1 ft. 11 in. (149.86 cm); Pain 0/10; 10:15 BP 103 / 59; Pulse 66; Resp 14; Pulse Ox 96% ; vg1 11:00 BP 119 / 54; Pulse 67; Resp 18; Pulse Ox 96% ; vg1 11:30 BP 125 / 62; Pulse 65; Resp 14; Pulse Ox 96% ; vg1 12:00 BP 116 / 61; Pulse 67; Resp 16; Pulse Ox 96% on R/A; vg1 12:30 BP 114 / 78; Pulse 65; Resp 16; Pulse Ox 96% on R/A; vg1 13:00 BP 122 / 75; Pulse 63; Resp 16; Pulse Ox 96% on R/A; vg1 13:30 BP 121 / 58; Pulse 67; Resp 20; Pulse Ox 95% on R/A; vg1 14:00 BP 124 / 65; Pulse 64; Resp 16; Pulse Ox 95% on R/A; vg1 14:30 BP 114 / 65; Pulse 71; Resp 18; Pulse Ox 95% on R/A; vg1 15:00 BP 111 / 54; Pulse 70; Resp 16; Pulse Ox 95% on R/A; vg1 15:30 BP 109 / 53; Pulse 69; Resp 18; Pulse Ox 95% on R/A; vg1 16:00 BP 113 / 62; Pulse 64; Resp 16; Pulse Ox 95% on R/A; vg1 16:30 BP 108 / 74; Pulse 64; Resp 16; Pulse Ox 95% on R/A; vg1 17:00 BP 118 / 50; Pulse 66; Resp 16; Pulse Ox 96% on R/A; vg1 17:30 BP 125 / 60; Pulse 71; Resp 18; Pulse Ox 95% ; vg1 18:00 BP 127 / 54; Pulse 66; Resp 20; Pulse Ox 94% on R/A; vg1 10:14 Body Mass Index 31.31 (70.31 kg, 149.86 cm) vg1 ED Course: 10:08 Patient arrived in ED. vg1 10:09 Jackie Deras FNP-C [facility]. kb 10:09 Arnel Martinez MD is Attending Physician. kb 10:19 Triage completed. vg1 10:23 Patient has correct armband on for positive identification. Call light in reach. Side vg1 rails up X2. Adult w/ patient. 10:23 Patient placed. vg1 10:24 Arnel Martinez MD is Attending Physician. kdr 10:24 CT Stroke Brain w/o Contrast In Process Unspecified. EDMS 10:25 Diandra Villalta RN is Primary Nurse. vg1 10:25 Maintain EMS IV. Dressing intact. Site clean \T\ dry. Gauge \T\ site: 20 Right FA. vg 1 10:46 Stroke CXR 1 View In Process Unspecified. EDMS 11:19 Initial lab(s) drawn, by me, sent to lab. Inserted saline lock: 24 gauge in left hand, em1 using aseptic technique. Blood collected. 13:14 transfer initiated with Natalie Strett from the [facility] at the request eb of Dr. Roca patient doctor. 13:18 administrative approval given by Natalie Schafer pending a bed/ Dr. Parth Roca has eb accepted the patient in transfer/. 13:29 Straight cath inserted, using sterile technique, 16 Fr. Specimen obtained. Returned vg1 clear yellow urine. Patient tolerated well. 13:37 COVID swab sent to lab. dw 15:11 patient will be going to [facility] 12th floor rm 1219/ report to eb be called to the transfer center at [phone]. 16:47 Patient transferred, IV remains in place. vg1 16:47 No provider procedures requiring assistance completed. vg1 Administered Medications: No medications were administered Output: 13:00 Urine: 300ml (Straight Cath); Total: 300ml. vg1 Outcome: 13:12 ER care complete, transfer ordered by . kdr 16:46 Transferred to [facility]. vg1 16:46 Condition: stable 16:46 Instructed on the need for transfer. 19:11 Patient left the ED. vg1 Signatures: Dispatcher [employer] EDMS Jackie Deras, BROWNING PROCESSOR-C BROWNING PROCESSOR-CkMaddy Cortez, RN RN Arnel Cabrera MD MD kdr Martinez, Dion 1 Adelia Ahn Victoria, RN RN vg1 Corrections: (The following items were deleted from the chart) 10:38 10:23 Derm: Skin is intact, Skin is pink, warm \T\ dry. vg1 vg1 10:38 10:23 Musculoskeletal: Capillary refill < 3 seconds, vg1 vg1 11:23 10:25 Maintain EMS IV. Dressing intact. Good blood return noted. Site clean \T\ dry. vg1 Gauge \T\ site: 20 Right FA. vg1
[2021-01-15 13:32] LABS: Urine Blood Negative (Negative); Urine Glucose Negative (Negative); Urine Protein Negative (Negative); Urine Specific Gravity 1.015 (1.005-1.030); Urine pH 5.5 (5.0-7.0)
[2021-01-15 19:38] VITALS: TEMP 97.6
[2021-01-15 20:00] VITALS: BP 127/54; O2SAT 94
== END 2021-01-15 19:11 | disposition short-term general hospital (02) ==
LOC: ER 09:50
DX: R53.1 Weakness (principal); R41.82 Altered mental status, unspecified; F03.90 Unspecified dementia, unspecified severity, without behavioral disturbance, psychotic disturbance, mood disturbance, and anxiety; I10 Essential (primary) hypertension; Z91.81 History of falling; Z79.82 Long term (current) use of aspirin; Z95.0 Presence of cardiac pacemaker; Z20.822 Contact with and (suspected) exposure to COVID-19
CPT/HCPCS: 93005; 85025; 87086; 80048; 36415; 85610; 85730; 81003; 70450; 71045; 51702; 99285; U0003; 87088